=== PATIENT | female | born 1950 | race Caucasian/White ===

== ENCOUNTER 2016-07-18 16:44 | Emergency (ER) | payer MEDICARE, OTHER ==
[~2016-07-18] VITALS: Ht 162.6 cm; Wt 53.0 kg
[~2016-07-18 16:44] MED LIST: ATEN25TA PO; ATOR40TA16 PO; COUM5TAB PO; EPIN1INJ21 IV PUSH; EPIN1INJ21 SQ; LISI40TA PO; PRED5TAB PO; SOLU250I IV PUSH; VANC10IN IV
[2016-07-18 16:55] VITALS: BP 140/70; PULSE 89; RESP 18; TEMP 97.9; O2SAT 94
[2016-07-18 19:04] LABS: BASOPHIL # 0.1 TH/MM3 (0-0.2); BASOPHIL % 0.8 % (0.0-2.0); EOSINOPHIL # 0.5 TH/MM3 (0-0.4); HEMATOCRIT 35.3 % (35.0-46.0); HEMO FLAGS DIFF FINAL; LYMPH % 16.3 % (9.0-44.0); LYMPHOCYTE # 1.5 TH/MM3 (1.0-4.8); MEAN CELL VOLUME 80.5 FL (80.0-100.0); MEAN CORPUSCULAR HEMOGLOBIN 26.3 PG (27.0-34.0); MEAN CORPUSCULAR HGB CONC 32.7 % (32.0-36.0); MONO % 12.5 % (0.0-8.0); NEUT % 65.4 % (16.0-70.0); PLATELET COUNT 331 TH/MM3 (150-450); RED BLOOD COUNT 4.39 MIL/MM3 (4.00-5.30); WHITE BLOOD COUNT 9.2 TH/MM3 (4.0-11.0)
[2016-07-18 19:14] LABS: BICARBONATE 31.9 MEQ/L (21.0-32.0)
[2016-07-18] MEDS ORDERED: VIGA0.5D EACH EYE ×2 (19:15→19:32)
[2016-07-18] MEDS ORDERED: ERYTOIN10 EACH EYE ×2 (19:15→19:32)
[2016-07-18] MEDS ORDERED: AUGM500T7 PO ×2 (19:17→19:32)
--- NOTE | 2016-07-18 19:17 | PD ---
HPI Chief Complaint: Eye Problems/Injury Time Seen by Provider: 17:38 Travel History International Travel<30 days: No Contact w/Intl Traveler<30days: No Traveled to known affect area: No History of Present Illness HPI Patient is a 65 year old female presents to the ER for evalution of left eye itching, swelling. Patient has a history of now chronic conjunctivitis and irritation of the right eye now progressing to the left eye for the past week and gradually worsening. She is followed by an awning hanger helper in the area. Denies fevers, denies visual changes. She is in the group home she states for "chronic disability". PFSH Past Medical History Cancer: No Cardiovascular Problems: Yes COPD: Yes Diabetes: No Diminished Hearing: No Endocrine: No Gastrointestinal Disorders: Yes (REFLUX) GERD: Yes Genitourinary: No Headaches: Yes Hepatitis: No Hiatal Hernia: No Hypertension: Yes Immune Disorder: No Kidney Stones: Yes Musculoskeletal: Yes (TMJ) Neurologic: Yes (VERTIGO) Psychiatric: No Reproductive: No Respiratory: Yes (NODULES ) Immunizations Current: Yes Thyroid Disease: No Menopausal: Yes : 2 Para: 2 Past Surgical History Pacemaker: No Other Surgery: Yes (RT mastectomy) Social History Alcohol Use: No Tobacco Use: No Substance Use: No Allergies-Medications (Allergen,Severity, Reaction): Coded Allergies: *MDRO Multi-Drug Resistant Organism (Unverified Adverse Reaction, Unknown , 05/18/16) Cdiff last treatment few days [employer] [employer] [facility]. + MRSA leg 07/31/14. Reported Meds & Prescriptions Reported Meds & Active Scripts Active Augmentin (Amoxicillin-Clavulanate) 500-125 mg Tab 500 Mg PO BID 7 Days Vigamox Opth Drops (Moxifloxacin Opth Drops) 0.5 % Soln 1 Drop EACH EYE QID Erythromycin Opth Oint 5 Mg/Gm Oint 1 Applic EACH EYE QID Epinephrine Inj 1 Mg/Ml Inj 0.3 Mg SQ ONCE PRN Give with any signs of respiratory distress. Epinephrine Inj 1 Mg/Ml Inj 0.3 Mg IV PUSH ONCE PRN Solu-Cortef Inj (Hydrocortisone Sodium Succinate) 250 Mg Inj 250 Mg IV PUSH ONCE PRN Give over 30-60 seconds. Vancomycin Inj (Vancomycin HCl) 10 Gm Inj 1,250 Mg IV Q12HR 10 Days Prednisone 5 Mg Tab 5 Mg PO DIRECTED 21 Days 60 mg po daily for three days then 50 mg po daily for three days then 40 mg po daily for three days then 30 mg po daily for three days then 20 mg po daily for three days then 10 mg po daily for three days then 5mg po daily for three days then stop. Coumadin (Warfarin) 5 Mg Tab 5 Mg PO DAILY Atenolol 25 Mg Tab 25 Mg PO DAILY 30 Days Reported Lisinopril 40 Mg Tab 40 Mg PO DAILY Atorvastatin (Atorvastatin Calcium) 40 Mg Tab 40 Mg PO HS Review of Systems Except as stated in HPI: all other systems reviewed are Neg Physical Exam Narrative GENERAL: WD/WN in nad. SKIN: Warm and dry. HEAD: Atraumatic. Normocephalic. EYES: Pupils equal and round. There is some moderate chemosis to the left eye, with injection. Patient has no discharge. EOMI. Perhaps a minimal amount of pre-septal cellulitis around the left eye. ENT: No nasal bleeding or discharge. Mucous membranes pink and moist. NECK: Trachea midline. No JVD. CARDIOVASCULAR: Regular rate and rhythm. RESPIRATORY: No accessory muscle use. Clear to auscultation. Breath sounds equal bilaterally. GASTROINTESTINAL: Abdomen soft, non-tender, nondistended. Hepatic and splenic margins not palpable. MUSCULOSKELETAL: Extremities without clubbing, cyanosis, or edema. No obvious deformities. NEUROLOGICAL: Awake and alert. No obvious cranial nerve deficits. Motor grossly within normal limits. Five out of 5 muscle strength in the arms and legs. Normal speech. PSYCHIATRIC: Appropriate mood and affect; insight and judgment normal. Data Data Last Documented VS Orders Complete Blood Count With Diff (07/18/16 18:08) Basic Metabolic Panel (Bmp) (07/18/16 18:08) Ct Facial Bones W/O Iv Cont (07/18/16 ) Acetaminophen (Tylenol) (07/18/16 21:00) Labs MDM Medical Decision Making Medical Screen Exam Complete: Yes Emergency Medical Condition: Yes Differential Diagnosis Conjunctivitis, pre-septal cellulitis, postseptal cellulitis, sepsis highly unlikely, endopthalmitis unlikely. Narrative Course Patient roomed in ED. CT reviewed with Dr. Ricketts and shows no evidence of retrobulbar involvement. Last [address] 07/18/16 0000 Signed Impressions: Service Date/Time: Monday, July 18, 2016 19:53 - CONCLUSION: Left preseptal periorbital soft-tissue swelling. Lobo Ricketts MD Patient appears well. Discussed with her groups awning hanger helper marketing professional. Recommends antibiotic regimen additions as below. She is stable for discharge. Diagnosis Primary Impression: Preseptal cellulitis of left eye Additional Impression: Conjunctivitis Qualified Code: H10.32 - Acute conjunctivitis of left eye, unspecified acute conjunctivitis type Additional Instructions: Patient was discussed with Dr. Mann who is on for Dr. Estrada, discussed patient does have chemosis but otherwise has a reassuring physical exam. Possibly a very small amount of preseptal cellulitis. Patient can be safely discharged on 2 new drops as well as an antibiotic pill. Needs to follow-up with Dr. Estrada next week. Med/Other Pt SpecificInfo: Prescription(s) given Scripts Amoxicillin-Clavulanate (Augmentin)500-125 mg [id number] Mg PO BID 7 Days Ref 0 Prov:Josh Greenberg MD 07/18/16 Moxifloxacin Opth Drops (Vigamox Opth Drops)0.5 % Soln1 Drop EACH EYE QID #1 BOTTLE Ref 0 Prov:Josh Greenberg MD 07/18/16 Erythromycin Opth Oint 5 Mg/Gm Oint1 Applic EACH EYE QID #1 TUBE Ref 0 Prov:Josh Greenberg MD 07/18/16 Disposition: DISCHARGE HOME Condition: Stable Josh Greenberg MD Jul 18, 2016 19:17 Possibly a very small amount of preseptal cellulitis. Patient can be safely discharged on 2 new drops as well as an antibiotic pill. Needs to follow-up with Dr. Estrada next week. Med/Other Pt SpecificInfo: Prescription(s) given Scripts Amoxicillin-Clavulanate (Augmentin)500-125 mg [id number] Mg PO BID 7 Days Ref 0 Prov:Josh Greenberg MD 07/18/16 Moxifloxacin Opth Drops (Vigamox Opth Drops)0.5 % Soln1 Drop EACH EYE QID #1 BOTTLE Ref 0 Prov:Josh Greenberg MD 07/18/16 Erythromycin Opth Oint 5 Mg/Gm Oint1 Applic EACH EYE QID #1 TUBE Ref 0 Prov:Josh Greenberg MD 07/18/16 Disposition: 01 DISCHARGE HOME Condition: Stable Josh Greenberg MD Jul 18, 2016 19:17
[2016-07-18 19:23] LABS: POTASSIUM 4.8 MEQ/L (3.5-5.1)
[2016-07-18] MEDS ORDERED: ACETAMINOPHEN 325 MG TAB PO ONE (21:00)
--- NOTE | 2016-07-18 21:12 | RADRPT ---
EXAM DATE/TIME: 07/18/2016 19:53 [facility] COMPARISON: No previous studies available for comparison. INDICATIONS : Periorbital swelling right eye. RADIATION DOSE: 54.26 CTDIvol (mGy) MEDICAL HISTORY : Hypertension. GERD. SURGICAL HISTORY : None. ENCOUNTER: Initial. ACUITY: 7 days PAIN SCORE: 3/10 LOCATION: Facial, right eye TECHNIQUE: Volumetric scanning of the facial bones was performed. Using automated exposure contr ol and adjustment of the mA and/or kV according to patient size, radiation dose was kept as low as re asonably achievable to obtain optimal diagnostic quality images. FINDINGS: There is periorbital soft-tissue swelling seen on the left side. This is all preseptal. The remaining aspects of the orbits are intact bilaterally. No retrobulbar abnormality is seen. T he bony structures appear grossly intact. There is mucosal disease seen in the maxillary sinuses bila terally being worse on the right. CONCLUSION: Left preseptal periorbital soft-tissue swelling. Lobo Ricketts MD on July 18, 2016 at 21:02 Board Certified Radiologist. This report was verified electronically.
== END 2016-07-18 22:16 | disposition home or self-care (01) ==
LOC: NEDAMB 16:44
DX: L03.213 Periorbital cellulitis (principal); H10.32 Unspecified acute conjunctivitis, left eye
CPT/HCPCS: 70486; 80048; 85025

== ENCOUNTER 2016-08-11 13:54 | Observation (INO) | payer MEDICARE, OTHER ==
[~2016-08-11] VITALS: Ht 162.6 cm; Wt 50.0 kg
[~2016-08-11 13:54] MED LIST changes: +AUGM500T7 PO; +ERYTOIN10 EACH EYE; +VIGA0.5D EACH EYE
[2016-08-11 14:00] VITALS: BP 119/86; PULSE 98; RESP 20; TEMP 98.8; O2SAT 97
[2016-08-11] MEDS ORDERED: SODIUM CHLOR 0.9% 1000 ML INJ 1,000 ML IV ONE (14:15)
[2016-08-11 14:40] VITALS: TEMP 99.9
[2016-08-11] MEDS ORDERED: SODIUM CHLORID 0.9% 500 ML INJ 500 ML IV ONE (14:45)
[2016-08-11] MEDS ORDERED: VANCOMYCIN INJ 1,000 MG in SODIUM CHLOR 0.9% 250 ML INJ 250 ML IV ONE (14:45)
[2016-08-11] MEDS ORDERED: PIPERACIL-TAZO 3.375 GM PREMIX 50 ML IV ONE (14:45)
[2016-08-11 14:58] LABS: AUTOMATED NEUTROPHIL # 2.7 TH/MM3 (1.8-7.7); EOSINOPHIL # 0.1 TH/MM3 (0-0.4); EOSINOPHIL % 2.1 % (0.0-4.0); HEMATOCRIT 38.8 % (35.0-46.0); LYMPH % 16.8 % (9.0-44.0); LYMPHOCYTE # 0.7 TH/MM3 (1.0-4.8); MEAN CELL VOLUME 81.5 FL (80.0-100.0); MEAN CORPUSCULAR HEMOGLOBIN 26.8 PG (27.0-34.0); MEAN CORPUSCULAR HGB CONC 32.9 % (32.0-36.0); MONO % 14.1 % (0.0-8.0); PLATELET COUNT 204 TH/MM3 (150-450); RED BLOOD COUNT 4.77 MIL/MM3 (4.00-5.30); RED CELL DISTRIBUTION WIDTH 17.3 % (11.6-17.2); WHITE BLOOD COUNT 4.1 TH/MM3 (4.0-11.0)
[2016-08-11 15:05] LABS: HEMO FLAGS DIFF FINAL
[2016-08-11 15:13] LABS: APTT (PATIENT) 26.5 SEC (24.3-30.1); INTERNATIONAL NORMALIZED RATIO 1.5 RATIO; PROTHROMBIN TIME - PATIENT 16.6 SEC (9.8-11.6)
--- NOTE | 2016-08-11 15:17 | RADRPT ---
EXAM DATE/TIME: 08/11/2016 14:24 [facility] COMPARISON: CHEST SINGLE AP, May 18, 2016, 19:15. INDICATIONS : Cough. Short of breath. MEDICAL HISTORY : Carcinoma, breast. Chronic obstructive pulmonary disease. MRSA. SURGICAL HISTORY : Mastectomy, right. [place]us[place]. ENCOUNTER: Initial ACUITY: 2 days PAIN SCORE: 0/10 LOCATION: Bilateral chest FINDINGS: A single view of the chest demonstrates the lungs to be symmetrically aerated without evidence of mas s, infiltrate or effusion. The cardiomediastinal contours are unremarkable. Osseous structures are intact. Left [id number] is in place. CONCLUSION: No acute disease. Tulio Schultz MD on August 11, 2016 at 15:09 Board Certified Radiologist. This report was verified electronically.
[2016-08-11 16:33] LABS: ANION GAP 8 MEQ/L (5-15); BICARBONATE 24.7 MEQ/L (21.0-32.0); CHLORIDE 108 MEQ/L (98-107); GLOMERULAR FILTRATION RATE 121 ML/MIN (>89); MAGNESIUM 1.8 MG/DL (1.5-2.5); POTASSIUM 3.9 MEQ/L (3.5-5.1); SODIUM (NA) 141 MEQ/L (136-145)
[2016-08-11 16:46] LABS: BLOOD UREA NITROGEN 10 MG/DL (7-18); CREATINE KINASE 30 U/L (26-192)
--- NOTE | 2016-08-11 17:08 | PD ---
HPI Chief Complaint: Respiratory Symptoms Time Seen by Provider: 14:02 Travel History International Travel<30 days: No Contact w/Intl Traveler<30days: No Traveled to known affect area: No History of Present Illness HPI This 65-year-old female with a history of breast cancer presents from detention for evaluation of cough fever and shortness of breath for the past few days. Patient states currently on chemotherapy. According EMS fever to 101F in the field. Patient is a nonproductive cough, symptoms are gradually worsening. Denies chest pain abdominal pain nausea vomiting diarrhea. Does endorse shortness of breath. PFSH Past Medical History Cancer: Yes (R BREAST CA ) Cardiovascular Problems: Yes (HTN) Chemotherapy: Yes COPD: Yes Diabetes: No Diminished Hearing: No Endocrine: No Gastrointestinal Disorders: Yes (REFLUX) GERD: Yes Genitourinary: No Headaches: Yes Hepatitis: No Hiatal Hernia: No Hypertension: Yes Immune Disorder: No Kidney Stones: Yes Musculoskeletal: Yes (TMJ) Neurologic: Yes (VERTIGO) Psychiatric: No Reproductive: No Respiratory: Yes (NODULES ) Immunizations Current: Yes Thyroid Disease: No Tetanus Vaccination: < 5 Years Influenza Vaccination: No ?: Not Menopausal: Yes : 2 Para: 2 Past Surgical History Pacemaker: No Other Surgery: Yes (RT mastectomy) Social History Alcohol Use: No Tobacco Use: No Substance Use: No Allergies-Medications (Allergen,Severity, Reaction): Coded Allergies: *MDRO Multi-Drug Resistant Organism (Unverified Adverse Reaction, Unknown , 05/18/16) Cdiff last treatment few days [employer]. + MRSA leg 07/31/14. Reported Meds & Prescriptions Reported Meds & Active Scripts Active Augmentin (Amoxicillin-Clavulanate) 500-125 mg Tab 500 Mg PO BID 7 Days Vigamox Opth Drops (Moxifloxacin Opth Drops) 0.5 % Soln 1 Drop EACH EYE QID Erythromycin Opth Oint 5 Mg/Gm Oint 1 Applic EACH EYE QID Epinephrine Inj 1 Mg/Ml Inj 0.3 Mg SQ ONCE PRN Give with any signs of respiratory distress. Epinephrine Inj 1 Mg/Ml Inj 0.3 Mg IV PUSH ONCE PRN Solu-Cortef Inj (Hydrocortisone Sodium Succinate) 250 Mg Inj 250 Mg IV PUSH ONCE PRN Give over 30-60 seconds. Vancomycin Inj (Vancomycin HCl) 10 Gm Inj 1,250 Mg IV Q12HR 10 Days Prednisone 5 Mg Tab 5 Mg PO DIRECTED 21 Days 60 mg po daily for three days then 50 mg po daily for three days then 40 mg po daily for three days then 30 mg po daily for three days then 20 mg po daily for three days then 10 mg po daily for three days then 5mg po daily for three days then stop. Coumadin (Warfarin) 5 Mg Tab 5 Mg PO DAILY Atenolol 25 Mg Tab 25 Mg PO DAILY 30 Days Reported Lisinopril 40 Mg Tab 40 Mg PO DAILY Atorvastatin (Atorvastatin Calcium) 40 Mg Tab 40 Mg PO HS Review of Systems Except as stated in HPI: all other systems reviewed are Neg Physical Exam Narrative GENERAL: [Well-developed well-nourished no apparent distress SKIN: Warm and dry. HEAD: Atraumatic. Normocephalic. EYES: Pupils equal and round. No scleral icterus. No injection or drainage. ENT: No nasal bleeding or discharge. Mucous membranes pink and moist. TMs clear bilaterally. NECK: Trachea midline. No JVD. CARDIOVASCULAR: Tachycardic with regular rhythm.. No murmur appreciated. 2+ but her local pulses in all 4 extremities. RESPIRATORY: No accessory muscle use. Clear to auscultation. Breath sounds equal bilaterally. Tachypneic. GASTROINTESTINAL: Abdomen soft, non-tender, nondistended. Hepatic and splenic margins not palpable. MUSCULOSKELETAL: No obvious deformities. No clubbing. No cyanosis. No edema. NEUROLOGICAL: Awake and alert. No obvious cranial nerve deficits. Motor grossly within normal limits. Normal speech. PSYCHIATRIC: Appropriate mood and affect; insight and judgment normal. Data Data Last Documented VS Vital Signs Date Time Temp Pulse Resp B/P Pulse Ox O2 Delivery O2 Flow Rate FiO2 08/11/16 18:55 20 08/11/16 18:54 90 110/73 98 Nasal Cannula 2 08/11/16 14:40 99.9 Orders Electrocardiogram (08/11/16 14:02) Basic Metabolic Panel (Bmp) (08/11/16 14:02) Ckmb (Isoenzyme) Profile (08/11/16 14:02) Complete Blood Count With Diff (08/11/16 14:02) Magnesium (Mg) (08/11/16 14:02) Prothrombin Time / Inr (Pt) (08/11/16 14:02) Act Partial Throm Time (Ptt) (08/11/16 14:02) Troponin I (08/11/16 14:02) Chest, Single Ap (08/11/16 14:02) Ecg Monitoring (08/11/16 14:02) Bilateral Bp Monitoring (08/11/16 14:02) Iv Access Insert/Monitor (08/11/16 14:02) Oximetry (08/11/16 14:02) Oxygen Administration (08/11/16 14:02) Sodium Chloride 0.9% Flush (Ns Flush) (08/11/16 14:15) Sodium Chlor 0.9% 1000 Ml Inj (Ns 1000 M (08/11/16 14:15) Lactic Acid (08/11/16 14:02) Influenzae A/B Antigen (08/11/16 14:39) Sodium Chlorid 0.9% 500 Ml Inj (Ns 500 M (08/11/16 14:45) Vancomycin Inj (Vancomycin Inj) (08/11/16 14:45) Piperacil-Tazo 3.375 Gm Premix (Zosyn 3. (08/11/16 14:45) Blood Culture (08/11/16 14:40) Ct Pulmonary Angiogram (08/11/16 ) Acetaminophen (Tylenol) (08/11/16 17:15) Iohexol 350 Inj (Omnipaque 350 Inj) (08/11/16 18:15) Admit Order (Ed Use Only) (08/11/16 ) Labs Laboratory Tests Test 08/11/16 08/11/16 14:15 15:40 White Blood Count 4.1 TH/MM3 Red Blood Count 4.77 MIL/MM3 Hemoglobin 12.8 GM/DL Hematocrit 38.8 % Mean Corpuscular Volume 81.5 FL Mean Corpuscular Hemoglobin 26.8 PG Mean Corpuscular Hemoglobin 32.9 % Concent Red Cell Distribution Width 17.3 % Platelet Count 204 TH/MM3 Mean Platelet Volume 8.7 FL Neutrophils (%) (Auto) 66.0 % Lymphocytes (%) (Auto) 16.8 % Monocytes (%) (Auto) 14.1 % Eosinophils (%) (Auto) 2.1 % Basophils (%) (Auto) 1.0 % Neutrophils # (Auto) 2.7 TH/MM3 Lymphocytes # (Auto) 0.7 TH/MM3 Monocytes # (Auto) 0.6 TH/MM3 Eosinophils # (Auto) 0.1 TH/MM3 Basophils # (Auto) 0.0 TH/MM3 CBC Comment DIFF FINAL Differential Comment Prothrombin Time 16.6 SEC Prothromb Time International 1.5 RATIO Ratio Activated Partial 26.5 SEC Thromboplast Time Lactic Acid Level 1.0 mmol/L Sodium Level 141 MEQ/L Potassium Level 3.9 MEQ/L Chloride Level 108 MEQ/L Carbon Dioxide Level 24.7 MEQ/L Anion Gap 8 MEQ/L Blood Urea Nitrogen 10 MG/DL Creatinine 0.51 MG/DL Estimat Glomerular Filtration 121 ML/MIN Rate Random Glucose 88 MG/DL Calcium Level 8.5 MG/DL Magnesium Level 1.8 MG/DL Total Creatine Kinase 30 U/L Troponin I LESS THAN 0.02 NG/ML MDM Medical Decision Making Medical Screen Exam Complete: Yes Emergency Medical Condition: Yes Interpretation(s) EKG shows sinus tachycardia rate of 114. Intervals otherwise within normal limits. Normal axis normal R-wave progression. No concerning ST T changes. In the inferior leads there is low voltage QRS compared to the P waves. This is nonspecific finding. As a nonspecific EKG. Differential Diagnosis Pneumonia, sepsis, cancer, PE. Narrative Course Patient 65-year-old female presents emergency department for evaluation of URI symptoms fever and a cancer patient. PE needs exclusion. Chest x-ray is within normal limits. On vital signs patient does meet SIRS criteria. Lactic acid is 1.0. Patient was taken to CAT scan her does have some findings consistent with pneumonia: Patient was given brought specimen anabiotic cyst this does represent a healthcare associated pneumonia. Patient was given fluid bolus. To minimum because lactic acid is within normal limits. She does meet SIRS criteria and has pneumonia and therefore sepsis. She has not severe sepsis. Patient was discussed with Dr. Arechiga for admission and was agreeable. Diagnosis Primary Impression: Sepsis Qualified Code: A41.9 - Sepsis, due to unspecified organism Additional Impression: Pneumonia Qualified Code: J18.9 - Pneumonia due to infectious organism, unspecified laterality, unspecified part of lung Admitting Information Admitting Physician Requests: Admit Condition: Stable Josh Greenberg MD Aug 11, 2016 17:08
[2016-08-11] MEDS ORDERED: ACETAMINOPHEN 325 MG TAB PO ONE (17:15)
[2016-08-11] MEDS ORDERED: IOHEXOL 350 MG/ML 10 ML VIAL (for RAD DIAG) IV ONE (18:15)
--- NOTE | 2016-08-11 18:28 | RADRPT ---
EXAM DATE/TIME: 08/11/2016 17:55 [facility] COMPARISON: CHEST SINGLE AP, May 18, 2016, 19:15. INDICATIONS : Flu like symptoms for four days. IV CONTRAST: 50 cc Omnipaque 350 (iohexol) IV RADIATION DOSE: 4.46 CTDIvol (mGy) MEDICAL HISTORY : Cardiovascular disease. Hypertension. Carcinoma, breast. SURGICAL HISTORY : Mastectomy, right. ENCOUNTER: Initial ACUITY: 4 - 6 days PAIN SCALE: 8/10 LOCATION: chest TECHNIQUE: Volumetric scanning of the chest was performed using a pulmonary embolism protocol MIP images were re constructed. Using automated exposure control and adjustment of the mA and/or kV according to patien t size, radiation dose was kept as low as reasonably achievable to obtain optimal diagnostic quality images. FINDINGS: PULMONARY ARTERIES: No filling defects are seen in the pulmonary arteries through the segmental level. LUNGS: There are scattered reticular nodular infiltrate throughout both lung tan. PLEURAE: There is no pleural thickening or pleural effusion. MEDIASTINUM: There is good visualization of the great vessels of the middle mediastinum. No evidence of mediastin al or hilar adenopathy/mass. MUSCULOSKELETAL: Within normal limits for patient age. MISCELLANEOUS: The visualized upper abdominal organs demonstrate no acute abnormality. CONCLUSION: 1. No PE. 2. Scattered reticulonodular infiltrates throughout both lung tan. This suggest inflammatory proce ss such as pneumonia. Lung metastatic disease would be a second possibility since patient has a histo ry of breast cancer. Ross Louis MD on August 11, 2016 at 18:19 Board Certified Radiologist. This report was verified electronically.
[2016-08-11 18:54] VITALS: BP 110/73; PULSE 90; RESP 20; O2SAT 98
[2016-08-11] MEDS ORDERED: Vancomycin Consult Pharmacy 1 EA OTHER SCH (19:45)
[2016-08-11] MEDS ORDERED: ACETAMINOPHEN 325 MG TAB PO PRN (19:45)
[2016-08-11] MEDS ORDERED: ONDANSETRON HCL 4 MG/2 ML VIAL IV PRN (19:45)
[2016-08-11] MEDS: PIPERACIL-TAZO 4.5 GM PREMIX 100 ML IV SCH (21:47)
[2016-08-11] MEDS: NS + KCL 20 MEQ INJ 1,000 ML IV SCH (21:47)
[2016-08-11 22:05] VITALS: BP 99/54
[2016-08-11] MEDS: HEPARIN SODIUM - SQ 10,000 UNITS/ML VIAL SQ SCH (22:49)
--- NOTE | 2016-08-11 23:11 | HHI.HP ---
[facility] Primary Care Physician No Primary Care Physician Admission Diagnosis Sepsis, PNA Diagnoses: Chief Complaint: cough, headaches Travel History International Travel<30 Days: No Contact w/Intl Traveler <30 Da: No Traveled to Known Affected Are: No History of Present Illness 65 y/o female with a history of HTN and hyperlipidemia presented to the ED from a local longterm with complaints of a cough and sob for the past month. She states she has had a cough and sob for the last month. Denies any sputum production. According to EMS she had a temp of 101. She also complains of headaches and has seen an eye doctor several times, but has not found out the cause. She states she was on chemotherapy for breast cancer but last dose was 4 months ago. She denies any chest pain, or chills, but states at times she does have nausea. Review of Systems Constitutional: COMPLAINS OF: Fever, DENIES: Chills Respiratory: COMPLAINS OF: Cough, Shortness of breath, DENIES: Sputum production Cardiovascular: DENIES: Chest pain, Lower Extremity Edema Gastrointestinal: COMPLAINS OF: Nausea, DENIES: Constipation, Diarrhea, Vomiting Genitourinary: DENIES: Hematuria, Dysuria Musculoskeletal: DENIES: Back pain, Neck pain Integumentary: DENIES: Rash Neurologic: COMPLAINS OF: Headache, DENIES: Localized weakness Past Family Social History Past Medical History HTN Hyperlipidemia Breast CA with chemo, last dose in Nov Past Surgical History Right mastectomy Reported Medications Reported Meds & Active Scripts Active Augmentin (Amoxicillin-Clavulanate) 500-125 mg Tab 500 Mg PO BID 7 Days Vigamox Opth Drops (Moxifloxacin Opth Drops) 0.5 % Soln 1 Drop EACH EYE QID Erythromycin Opth Oint 5 Mg/Gm Oint 1 Applic EACH EYE QID Epinephrine Inj 1 Mg/Ml Inj 0.3 Mg SQ ONCE PRN Give with any signs of respiratory distress. Epinephrine Inj 1 Mg/Ml Inj 0.3 Mg IV PUSH ONCE PRN Solu-Cortef Inj (Hydrocortisone Sodium Succinate) 250 Mg Inj 250 Mg IV PUSH ONCE PRN Give over 30-60 seconds. Vancomycin Inj (Vancomycin HCl) 10 Gm Inj 1,250 Mg IV Q12HR 10 Days Prednisone 5 Mg Tab 5 Mg PO DIRECTED 21 Days 60 mg po daily for three days then 50 mg po daily for three days then 40 mg po daily for three days then 30 mg po daily for three days then 20 mg po daily for three days then 10 mg po daily for three days then 5mg po daily for three days then stop. 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 + MRSA leg 07/31/14. Active Ordered Medications Current Medications Medications (Trade) Dose Ordered Sig/Rosalba Route Start Time Stop Time Status Last Admin IV Flush 2 ml 2 ml UNSCH PRN IVF 08/11/16 14:15 Potassium Chloride/Sodium Chloride 1,000 ml @ 70 mls/hr [id number] IV 08/11/16 19:44 08/11/16 21:47 Piperacillin Sod/ Tazobactam Sod 100 ml @ 200 mls/hr Q6H IV 08/11/16 21:00 08/11/16 21:47 (Vancomycin Consult Pharmacy) 0 ml @ 0 mls/hr UNSCH OTHER 08/11/16 19:45 (Tylenol) 650 mg Q4H PRN PO 08/11/16 19:45 08/11/16 22:50 (Zofran Inj) 4 mg Q6H PRN IV 08/11/16 19:45 (Robitussin Dm 200-20 Mg/10 ml Liq) 10 ml Q4H PRN PO 08/11/16 19:45 Heparin Sodium (Porcine) 5000 units 5,000 units Q8H SQ 08/11/16 22:00 08/11/16 22:49 (Vancomycin Inj/ NS 250 ml Inj) 250 ml @ 250 mls/hr Q18H IV 08/12/16 12:00 Miscellaneous Information SPECIFIC LAB TO BE DANE... ONCE ONCE XX 08/13/16 23:45 08/13/16 23:46 Family History Significant for Heart disease Social History No tobacco, alcohol or illicit drug use Physical Exam Vital Signs Vital Signs Date Time Temp Pulse Resp B/P Pulse Ox O2 Delivery O2 Flow Rate FiO2 08/11/16 22:05 98 16 99/54 97 08/11/16 18:55 20 08/11/16 18:54 90 20 110/73 98 Nasal Cannula 2 08/11/16 14:40 99.9 08/11/16 14:05 100 Nasal Cannula 2 08/11/16 14:00 119/86 08/11/16 14:00 98.8 98 20 119/86 97 Room Air 08/11/16 14:00 98.8 98 20 119/86 97 Physical Exam GENERAL: This is a well-nourished, well-developed patient, in no apparent distress. SKIN: No rashes, ecchymoses or lesions. Cool and dry. HEAD: Atraumatic. Normocephalic. EYES: Pupils equal round and reactive. Extraocular motions intact. ENT: Nose without bleeding, purulent drainage or septal hematoma. Airway patent. NECK: Trachea midline. No JVD CARDIOVASCULAR: Regular rate and rhythm without murmurs, gallops, or rubs. RESPIRATORY: Diminished Breath sounds bilaterally. No wheezes, rales, or rhonchi. GASTROINTESTINAL: Abdomen soft, non-tender, nondistended. No hepato-splenomegaly , or palpable masses. No guarding. MUSCULOSKELETAL: Extremities without clubbing, cyanosis, or edema. No joint tenderness, effusion, or edema noted. No calf tenderness. NEUROLOGICAL: Awake and alert. . Motor and sensory grossly within normal limits. Normal speech. Laboratory Laboratory Tests Test 08/11/16 08/11/16 14:15 15:40 White Blood Count 4.1 Red Blood Count 4.77 Hemoglobin 12.8 Hematocrit 38.8 Mean Corpuscular Volume 81.5 Mean Corpuscular Hemoglobin 26.8 Mean Corpuscular Hemoglobin 32.9 Concent Red Cell Distribution Width 17.3 Platelet Count 204 Mean Platelet Volume 8.7 Neutrophils (%) (Auto) 66.0 Lymphocytes (%) (Auto) 16.8 Monocytes (%) (Auto) 14.1 Eosinophils (%) (Auto) 2.1 Basophils (%) (Auto) 1.0 Neutrophils # (Auto) 2.7 Lymphocytes # (Auto) 0.7 Monocytes # (Auto) 0.6 Eosinophils # (Auto) 0.1 Basophils # (Auto) 0.0 CBC Comment DIFF FINAL Differential Comment Prothrombin Time 16.6 Prothromb Time International 1.5 Ratio Activated Partial 26.5 Thromboplast Time Lactic Acid Level 1.0 Sodium Level 141 Potassium Level 3.9 Chloride Level 108 Carbon Dioxide Level 24.7 Anion Gap 8 Blood Urea Nitrogen 10 Creatinine 0.51 Estimat Glomerular Filtration 121 Rate Random Glucose 88 Calcium Level 8.5 Magnesium Level 1.8 Total Creatine Kinase 30 Troponin I LESS THAN 0.02 Date/Time Procedure Status Source Growth 08/11/16 15:00 Influenza Types A,B Antigen (JANNETTE) - Final Complete Nasal Aspirate NEGATIVE FOR FLU A AND B ANTIGEN.... 08/11/16 14:00 Aerobic Blood Culture Received Blood Peripheral Pending 08/11/16 14:00 Anaerobic Blood Culture Received Blood Peripheral Pending Result Diagram: 08/11/16 1415 08/11/16 1540 Assessment and Plan Problem List: (1) Pneumonia ICD Code: J18.9 Status: Acute (2) HTN (hypertension) ICD Code: I10 Status: Chronic (3) Orbital cellulitis on left ICD Code: H05.012 Status: Chronic Assessment and Plan 65-year-old female with a history of hypertension and dyslipidemia presented with: Pneumonia -Chest CT shows scattered reticulonodular infiltrates throughout both lung tan, suggestive of inflammatory process. -Vancomycin IV with pharmacy consult for dosing -Guaifen-DM when necessary -Oxygen as needed, incentive spirometer Orbital cellulitis, chronic, was being treated outpatient -Son will bring in med list in AM Hypertension, chronic, currently stable -Monitor vitals -Awaiting med rec, prns if necessary DVT prophylaxis: Heparin Written by Jocelyn GARNER, acting as scribe for Dr. Greenwood on 08/11/16 at 2307. All or portions of this note were transcribed by PASCUAL Garcia. I, Dr. Melvin Greenwood personally performed the history, physical exam, and medical decision making; and confirmed the accuracy of the information in the transcribed note. Authenticated by Dr. Melvin Greenwood on 08/12/16 at 01:54. Code Status Full Discussed Condition With Patient Problem Qualifiers (1) Pneumonia: Qualified Code: J18.9 - Pneumonia due to infectious organism, unspecified laterality, unspecified part of lung Jocelyn Cunningham Aug 11, 2016 23:11 Melvin Greenwood MD Aug 12, 2016 01:54
[2016-08-11 23:35] VITALS: BP 117/75; PULSE 86; RESP 18; TEMP 98.2; O2SAT 97
[2016-08-12] VITALS (7 sets, daily range): BP systolic 109–152; BP diastolic 69–86; PULSE 74–96; RESP 18–19; TEMP 95.7–98.1; O2SAT 89–97
[2016-08-12] MEDS ORDERED: DRON2.5C PO (00:19)
[2016-08-12] MEDS ORDERED: BUTA1CAP7 PO (00:21)
[2016-08-12] MEDS ORDERED: LISI-519 PO (00:27)
[2016-08-12] MEDS ORDERED: [UNRECOGNIZED DRUG - CODE] LEFT EYE (00:30)
[2016-08-12] MEDS ORDERED: VANC125C3 LEFT EYE (00:33)
[2016-08-12] MEDS ORDERED: CODEINE PO PRN (01:45)
[2016-08-12] MEDS ORDERED: BUTALBITAL PO PRN (01:45)
[2016-08-12] MEDS ORDERED: ACETAMINOPHEN PO PRN (01:45)
[2016-08-12] MEDS ORDERED: CAFFEINE PO PRN (01:45)
[2016-08-12] MEDS: CODEINE SULFATE 30 MG TAB PO PRN ×4 (02:36→23:30)
[2016-08-12] MEDS: PIPERACIL-TAZO 4.5 GM PREMIX 100 ML IV SCH ×4 (02:36→20:28)
[2016-08-12] MEDS: ACETAMIN 325 MG/BUTALBITAL 50 MG/CAFFEINE 40 MG TAB PO PRN ×5 (02:37→23:30)
[2016-08-12] MEDS: HEPARIN SODIUM - SQ 10,000 UNITS/ML VIAL SQ SCH ×3 (06:18→20:29)
[2016-08-12 07:36] LABS: AUTOMATED NEUTROPHIL # 1.4 TH/MM3 (1.8-7.7); BASOPHIL % 1.3 % (0.0-2.0); EOSINOPHIL # 0.1 TH/MM3 (0-0.4); EOSINOPHIL % 3.2 % (0.0-4.0); HEMATOCRIT 33.8 % (35.0-46.0); HEMO FLAGS DIFF FINAL; LYMPH % 33.4 % (9.0-44.0); LYMPHOCYTE # 1.1 TH/MM3 (1.0-4.8); MEAN CORPUSCULAR HEMOGLOBIN 26.5 PG (27.0-34.0); MEAN CORPUSCULAR HGB CONC 32.7 % (32.0-36.0); MONO % 17.3 % (0.0-8.0); NEUT % 44.8 % (16.0-70.0); PLATELET COUNT 156 TH/MM3 (150-450); RED BLOOD COUNT 4.17 MIL/MM3 (4.00-5.30); RED CELL DISTRIBUTION WIDTH 17.4 % (11.6-17.2); WHITE BLOOD COUNT 3.2 TH/MM3 (4.0-11.0)
[2016-08-12] MEDS ORDERED: NALOXONE HCL 0.4 MG/ML AMP IV PUSH PRN (07:45)
[2016-08-12] MEDS ORDERED: MAGNESIUM HYDROXIDE SUSP 30 ML CUP PO PRN (07:45)
[2016-08-12] MEDS ORDERED: DOCUSATE SODIUM 50 MG/SENNA 8.6 MG TAB PO PRN (07:45)
[2016-08-12] MEDS ORDERED: ALUMINUM/MAGNESIUM/SIMETH 30 ML CUP PO PRN (07:45)
[2016-08-12] MEDS ORDERED: CALCIUM CARBONATE 500 MG CHEWABLE TAB CHEW PRN (07:45)
[2016-08-12 08:10] LABS: BICARBONATE 26.4 MEQ/L (21.0-32.0); POTASSIUM 3.7 MEQ/L (3.5-5.1)
[2016-08-12] MEDS: ERYTHROMYCIN 0.5% OPTH OINT 3.5 GM TUBO EACH EYE SCH ×4 (09:00→23:31)
[2016-08-12] MEDS ORDERED: LISINOPRIL 5 MG TAB PO SCH (09:00)
--- NOTE | 2016-08-12 10:00 | HHI.PR ---
Subjective Remarks Follow-up for pneumonia. Patient recently discharged from SNF, currently lives with her son. She knows she's in the hospital, not sure of the date. She denies any sick contacts. She has cough, no blood in it. She has shortness of breath, worse with exertion. She is currently on oral antibiotics for her eye infection at home, unsure of the antibiotic. She had breast cancer, finished treatment for months ago, had surgery, was told that it did not spread. Not sure why she is on a blood thinner, but she does recall that maybe in the past she had blood clots in her lungs. Objective Vitals Vital Signs Date Time Temp Pulse Resp B/P Pulse Ox O2 Delivery O2 Flow Rate FiO2 08/12/16 09:07 92 21 08/12/16 08:20 91 08/12/16 08:12 96.3 77 19 152/86 89 08/12/16 04:25 97.9 74 18 116/69 97 08/12/16 04:10 18 08/12/16 04:10 18 08/12/16 01:23 21 08/12/16 00:34 18 08/11/16 23:35 98.2 86 18 117/75 97 08/11/16 22:05 98 16 99/54 97 08/11/16 18:55 20 08/11/16 18:54 90 20 110/73 98 Nasal Cannula 2 08/11/16 14:40 99.9 08/11/16 14:05 100 Nasal Cannula 2 08/11/16 14:00 119/86 08/11/16 14:00 98.8 98 20 119/86 97 Room Air 08/11/16 14:00 98.8 98 20 119/86 97 Result Diagram: 08/12/16 0630 08/12/16 0630 Objective Remarks GENERAL: Well-developed well-nourished. In no acute distress. SKIN: Warm and dry. No lesions noted. HEENT: Normocephalic. Left eye conjunctival irritation. Pupils equal and round. Mucous membranes pink and moist. CARDIOVASCULAR: Regular rate and rhythm. No murmur appreciated. RESPIRATORY: No accessory muscle use. Clear to auscultation. Breath sounds equal bilaterally. GASTROINTESTINAL: Abdomen soft, non-tender, nondistended. Bowel sounds x4. MUSCULOSKELETAL: No obvious deformities. No clubbing or cyanosis. No edema. NEUROLOGICAL: Awake and alert. No focal neurological deficits. Moves upper and lower extremities spontaneously. Normal speech. PSYCHIATRIC: Appropriate mood and affect; insight and judgment fair to normal. A/P Problem List: (1) Pneumonia ICD Code: J18.9 Status: Acute (2) HTN (hypertension) ICD Code: I10 Status: Chronic (3) Orbital cellulitis on left ICD Code: H05.012 Status: Chronic Assessment and Plan 65-year-old female with a history of hypertension and dyslipidemia presented with: Pneumonia Imaging reviewed: Chest CT shows scattered reticulonodular infiltrates throughout both lung tan, suggestive of inflammatory/infectious process although metastatic disease is in the differential. -Giving IV Vancomycin and Zosyn with pharmacy consult for dosing -Guaifen-DM when necessary -Oxygen as needed, incentive spirometer -Check urinary antigens -Consult pulmonology Orbital cellulitis, chronic, was being treated outpatient -Son will bring in med list in AM, resume antibiotics when reconciled -Consult ophthalmology Hypertension, chronic, currently stable -Monitor vitals -Awaiting med rec, resume when reconciled, prns if necessary History of PE -INR subtherapeutic at 1.5, monitor INR -Continue Coumadin with pharmacy consult DVT prophylaxis: Heparin Written by Jb Aleman, acting as scribe for Dr. Torres on 08/12/16 at 09:56. All or portions of this note were transcribed by scribe []. I, Dr. Shantanu Torres personally performed the history, physical exam, and medical decision making; and confirmed the accuracy of the information in the transcribed note. Authenticated by Dr. Shantanu Torres on 08/12/16 at 16:24. Problem Qualifiers (1) Pneumonia: Qualified Code: J18.9 - Pneumonia due to infectious organism, unspecified laterality, unspecified part of lung (2) HTN (hypertension): Qualified Code: I10 - Essential hypertension Jb Aleman Aug 12, 2016 10:00 Shantanu Torres MD Aug 12, 2016 16:24
[2016-08-12] MEDS: MOXIFLOXACIN 0.5% OPHT SOLN 3 ML BTL EACH EYE SCH ×4 (10:16→20:28)
[2016-08-12] MEDS: NS + KCL 20 MEQ INJ 1,000 ML IV SCH ×2 (10:16→23:31)
[2016-08-12] MEDS ORDERED: VANCOMYCIN 1,000 MG/NS 250 ML IV SCH ×2 (12:00)
[2016-08-12] MEDS: VANCOMYCIN 1,000 MG/NS 250 ML IV SCH ×4 (12:13→23:32)
--- NOTE | 2016-08-12 14:55 | EKG ---
Date Performed: 08/11/2016 Time Performed: 14:29:20 PTAGE: 65 years EKG: SINUS TACHYCARDIA LOW QRS VOLTAGE IN EXTREMITY LEADS ABNORMAL RHYTHM ECG Since PREVIOUS TRACING , no significant change noted PREVIOUS TRACIN05/18/2016 18.50 DOCTOR: Yasmany Mayorga Interpretating Date/Time 08/12/2016 14:52:34
[2016-08-12] MEDS: WARFARIN SOD 5 MG TAB PO SCH (16:29)
--- NOTE | 2016-08-12 19:57 | PD.CONS ---
History of Present Illness Service Ophthalmology Consult Requested By Reason for Consult left eye redness Primary Care Physician No Primary Care Physician Diagnoses: History of Present Illness 65 yo F with a history of HTN and hyperlipidemia presented to the ED from a local custodial with complaints of a cough and sob for the past month. She states she was on chemotherapy for breast cancer, but last dose was 4 months ago. She says she has seen a local Retina specialist (can't remember name) a few times in the last month for a problem in her left eye (does not know what problem was). Poor historian. Retina said her eye pressure was really high, did a ?paracentesis, and put her on drops (does not know which ones). 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 + MRSA leg 07/31/14. Physical Exam Vital Signs Vital Signs Date Time Temp Pulse Resp B/P Pulse Ox O2 Delivery O2 Flow Rate FiO2 08/12/16 16:12 95.7 75 18 114/79 92 08/12/16 15:51 18 08/12/16 15:51 18 08/12/16 11:50 96.7 96 18 109/73 91 08/12/16 09:07 92 21 08/12/16 08:20 91 08/12/16 08:12 96.3 77 19 152/86 89 08/12/16 04:25 97.9 74 18 116/69 97 08/12/16 01:23 21 08/12/16 00:34 18 08/11/16 23:35 98.2 86 18 117/75 97 08/11/16 22:05 98 16 99/54 97 Physical Exam Va cc at near OD 20/200, OS 20/800 EOM full OU, no diplopia CVF full OU Pupils 4-3 no APD OU IOP 17, 25 mm Hg Anterior exam OD - normal eyelid, C/S W&Q, K clear, AC deep, pupil round, lens clear OS - normal eyelid, conj injection, K clear, AC deep, pupil round, lens clear Dilated exam OD - ON s/p/f, ves normal, vit clear, retina flat OS - hazy view Laboratory Laboratory Tests Test 08/12/16 06:30 White Blood Count 3.2 Red Blood Count 4.17 Hemoglobin 11.0 Hematocrit 33.8 Mean Corpuscular Volume 81.0 Mean Corpuscular Hemoglobin 26.5 Mean Corpuscular Hemoglobin 32.7 Concent Red Cell Distribution Width 17.4 Platelet Count 156 Mean Platelet Volume 8.4 Neutrophils (%) (Auto) 44.8 Lymphocytes (%) (Auto) 33.4 Monocytes (%) (Auto) 17.3 Eosinophils (%) (Auto) 3.2 Basophils (%) (Auto) 1.3 Neutrophils # (Auto) 1.4 Lymphocytes # (Auto) 1.1 Monocytes # (Auto) 0.5 Eosinophils # (Auto) 0.1 Basophils # (Auto) 0.0 CBC Comment DIFF FINAL Differential Comment Sodium Level 144 Potassium Level 3.7 Chloride Level 109 Carbon Dioxide Level 26.4 Anion Gap 9 Blood Urea Nitrogen 10 Creatinine 0.54 Estimat Glomerular Filtration 113 Rate Random Glucose 71 Calcium Level 8.3 Date/Time Procedure Status Source Growth 08/11/16 15:00 Influenza Types A,B Antigen (JANNETTE) - Final Complete Nasal Aspirate NEGATIVE FOR FLU A AND B ANTIGEN.... 08/11/16 14:00 Aerobic Blood Culture - Preliminary Resulted Blood Peripheral NO GROWTH IN 1 DAY 08/11/16 14:00 Anaerobic Blood Culture - Preliminary Resulted Blood Peripheral NO GROWTH IN 1 DAY Result Diagram: 08/12/16 0630 08/12/16 0630 Assessment and Plan Problem List: (1) Conjunctival injection Status: Acute Plan: Poor historian, poor cooperation with exam. Will attempt to find out which Retina specialist in [facility] has been treating her to get medical records. Leticia King MD Aug 12, 2016 19:57
[2016-08-12] MEDS: ATORVASTATIN 40 MG TAB PO SCH (20:27)
[2016-08-12] MEDS: SODIUM CHLORIDE 0.9% FLUSH 5 ML FLUSH IVF PRN ×2 (20:28→23:31)
--- NOTE | 2016-08-12 20:52 | MB ---
cc: EMMANUELLE AGRAWAL DATE OF CONSULTATION 08/12/[address] Torres. REASON FOR CONSULTATION Evaluate for abnormal CT scan of the chest. HISTORY OF THE PRESENT ILLNESS Ms. Foster is a 65-year-old female with a history of cancer of the breast status post right mastectomy, chemotherapy and radiation therapy. She lives in a senior care for the last few months. She states that in January she had a fall and her problems started after that. She came to the hospital with cough, sputum production and fever. She also had a headache. No nausea or vomiting. The patient was evaluated in the hospital. She had a CT scan of the chest done. It does not show any pulmonary embolism. It shows scattered reticulonodular infiltrates throughout both lungs. It could be inflammatory or infective process or malignancy. She feels comfortable. Not able to cough any phlegm. No nausea or vomiting. PAST MEDICAL HISTORY Significant for: 1. History of cancer of the breast status post mastectomy and radiation and chemotherapy. 2. Hypertension. 3. History of fall. MEDICATIONS She is currently takin. Lipitor 40 milligrams a day. 2. Coumadin 5 milligrams a day. 3. Vancomycin IV. 4. Moxifloxacin eye drops. 5. Codeine 30 milligrams q.4h. 6. Zosyn IV. 7. Robitussin DM cough syrup. ALLERGIES NO KNOWN DRUG ALLERGIES. SOCIAL HISTORY She is . She used to work in a factory. No history of smoking or alcohol abuse. FAMILY HISTORY She has two children. She was living with a son, now she is in a senior care. REVIEW OF SYSTEMS She denies any weight loss. No headache or dizziness. She was feeling weak, now she has started walking. PHYSICAL EXAMINATION GENERAL: Thin built, elderly female in no acute distress. VITAL SIGNS: Blood pressure 114/79, heart rate 75, respirations 18, temperature 95.7. HEENT: Pupils are equal and barely reactive to light. Her pupils are dilated. She recently had the eye examination. Her left eye has conjunctival congestion and circumcorneal congestion. CHEST: Air entry equal bilaterally. No rhonchi. CARDIOVASCULAR: S1, S2 normal. ABDOMEN: Benign. EXTREMITIES: No edema. LABORATORY DATA WBC count 3.2, hemoglobin 11.0, hematocrit 33.8, MCV 81, platelet count 156. Sodium 144, potassium 3.7, chloride 109, CO2 26, BUN 10, creatinine 0.54. INR 1.5. IMPRESSION 1. Bilateral reticulonodular infiltrates, possible inflammatory infective process, however, she has a history of cancer of the breast, malignancy is not ruled out. 2. Left eye inflammation. 3. History of cancer of the breast. PLAN I discussed wit the patient she is being treated with antibiotics. She will need repeat CT scan of the chest in four to six weeks. If infiltrate persists then she will need a PET scan or a biopsy. Further treatment will depend on the course in the hospital. Thank you Dr. Torres for this consultation. MD FLORY Iverson/DANIEL /8:33 PM /8:39 PM MTDAnayeli
[2016-08-13] MEDS: PIPERACIL-TAZO 4.5 GM PREMIX 100 ML IV SCH ×4 (03:00→19:40)
[2016-08-13] MEDS: CODEINE SULFATE 30 MG TAB PO PRN ×4 (04:51→21:58)
[2016-08-13] MEDS: HEPARIN SODIUM - SQ 10,000 UNITS/ML VIAL SQ SCH ×3 (04:51→21:58)
[2016-08-13] MEDS: ACETAMIN 325 MG/BUTALBITAL 50 MG/CAFFEINE 40 MG TAB PO PRN ×4 (04:51→21:58)
[2016-08-13] MEDS: SODIUM CHLORIDE 0.9% FLUSH 5 ML FLUSH IVF PRN ×3 (04:52→21:57)
[2016-08-13 06:10] LABS: INTERNATIONAL NORMALIZED RATIO 1.3 RATIO; PROTHROMBIN TIME - PATIENT 14.1 SEC (9.8-11.6)
[2016-08-13 06:12] LABS: AUTOMATED NEUTROPHIL # 1.2 TH/MM3 (1.8-7.7); BASOPHIL % 0.7 % (0.0-2.0); EOSINOPHIL # 0.1 TH/MM3 (0-0.4); EOSINOPHIL % 3.9 % (0.0-4.0); HEMATOCRIT 34.3 % (35.0-46.0); HEMO FLAGS DIFF FINAL; LYMPH % 46.1 % (9.0-44.0); LYMPHOCYTE # 1.5 TH/MM3 (1.0-4.8); MEAN CELL VOLUME 81.8 FL (80.0-100.0); MEAN CORPUSCULAR HEMOGLOBIN 26.3 PG (27.0-34.0); MEAN CORPUSCULAR HGB CONC 32.1 % (32.0-36.0); MONO % 14.7 % (0.0-8.0); NEUT % 34.6 % (16.0-70.0); PLATELET COUNT 146 TH/MM3 (150-450); RED BLOOD COUNT 4.19 MIL/MM3 (4.00-5.30); RED CELL DISTRIBUTION WIDTH 17.2 % (11.6-17.2); WHITE BLOOD COUNT 3.4 TH/MM3 (4.0-11.0)
[2016-08-13 06:31] LABS: BICARBONATE 23.3 MEQ/L (21.0-32.0); MAGNESIUM 1.3 MG/DL (1.5-2.5); POTASSIUM 5.6 MEQ/L (3.5-5.1)
[2016-08-13 06:54] LABS: CALCIUM-PROTEIN CORRECTED 8.4 MG/DL (8.5-10.1)
[2016-08-13 08:10] VITALS: BP 118/90; PULSE 86; RESP 19; TEMP 95.4; O2SAT 90
[2016-08-13] MEDS: MOXIFLOXACIN 0.5% OPHT SOLN 3 ML BTL EACH EYE SCH ×2 (08:13→12:07)
[2016-08-13] MEDS: ERYTHROMYCIN 0.5% OPTH OINT 3.5 GM TUBO EACH EYE SCH ×2 (08:13→12:07)
[2016-08-13] MEDS ORDERED: MAGNESIUM SULFATE 1 GM PREMIX 100 ML IV ONE (08:15)
[2016-08-13 09:17] VITALS: O2SAT 98
[2016-08-13] MEDS: guaiFENesin/DEXTROMETHORPHAN 200 MG/20 MG/10 ML CUP PO PRN ×2 (09:43→23:15)
--- NOTE | 2016-08-13 11:01 | HHI.PR ---
Subjective Remarks Follow-up for pneumonia. She remains confused and a poor historian. The patient still has cough. She has some blurred vision in her left eye. The patient is unable to get in touch her son to see what medications she is supposed to be at home. She says she is her medications at a [facility] in [facility]. She's not sure what I physician she sees. She is not sure her primary care doctor is. Objective Vitals Vital Signs Date Time Temp Pulse Resp B/P Pulse Ox O2 Delivery O2 Flow Rate FiO2 08/13/16 08:10 95.4 86 19 118/90 90 08/13/16 05:59 16 08/13/16 05:59 16 08/12/16 20:52 98.1 85 18 119/83 97 08/12/16 16:12 95.7 75 18 114/79 92 08/12/16 11:50 96.7 96 18 109/73 91 Result Diagram: 08/13/16 0521 08/13/16 0521 Imaging Last Impressions Chest X-Ray 08/11/16 1402 Signed Impressions: Service Date/Time: Thursday, August 11, 2016 14:24 - CONCLUSION: No acute disease. Tulio Schultz MD CT Angiography 08/11/16 0000 Signed Impressions: Service Date/Time: Thursday, August 11, 2016 17:55 - CONCLUSION: 1. No PE. 2. Scattered reticulonodular infiltrates throughout both lung tan. This suggest inflammatory process such as pneumonia. Lung metastatic disease would be a second possibility since patient has a history of breast cancer. Ross Louis MD Objective Remarks GENERAL: Well-developed well-nourished. In no acute distress. SKIN: Warm and dry. No lesions noted. HEENT: Normocephalic. Left eye conjunctival irritation. Pupils equal and round. Mucous membranes pink and moist. CARDIOVASCULAR: Regular rate and rhythm. No murmur appreciated. RESPIRATORY: No accessory muscle use. Clear to auscultation. Breath sounds equal bilaterally. GASTROINTESTINAL: Abdomen soft, non-tender, nondistended. Bowel sounds x4. MUSCULOSKELETAL: No obvious deformities. No clubbing or cyanosis. No edema. NEUROLOGICAL: Awake and alert. No focal neurological deficits. Moves upper and lower extremities spontaneously. Normal speech. PSYCHIATRIC: Appropriate mood and affect; insight and judgment fair to normal. A/P Problem List: (1) Pneumonia ICD Code: J18.9 Status: Acute (2) HTN (hypertension) ICD Code: I10 Status: Chronic (3) Orbital cellulitis on left ICD Code: H05.012 Status: Chronic Assessment and Plan 65-year-old female with a history of hypertension and dyslipidemia presented with: Pneumonia with hypoxia Imaging reviewed: Chest CT shows scattered reticulonodular infiltrates throughout both lung tan, suggestive of inflammatory/infectious process although metastatic disease is in the differential. -Giving IV Vancomycin and Zosyn with pharmacy consult for dosing -Guaifen-DM when necessary -Oxygen as needed, incentive spirometer -Checked urinary antigens and sputum culture -Consulted pulmonology, needs follow-up CT in 4-6 weeks Orbital cellulitis, chronic, was being treated outpatient -Discussed with RN, resume antibiotics when medications reconciled -Consulted ophthalmology, obtain outpatient records Hypertension, chronic, currently stable -Monitor vitals -Awaiting med rec, resume when reconciled, prns if necessary History of PE -INR subtherapeutic at 1.5, monitor INR -Continue Coumadin with pharmacy consult Hyperkalemia -DC potassium supplementation -Kayexalate 1 -Follow-up BMP -Magnesium 1.3, give IV mag DVT prophylaxis: Heparin Written by Jb Aleman, acting as scribe for Dr. Torres on 08/13/16 at 11:01. All or portions of this note were transcribed by scribe []. I, Dr. Shantanu Torres personally performed the history, physical exam, and medical decision making; and confirmed the accuracy of the information in the transcribed note. Authenticated by Dr. Shantanu Torres on 08/13/16 at 16:30. Discharge Planning PT recommends SNF, patient recently DC'd. May need home O2. Case management consult. Problem Qualifiers (1) Pneumonia: Qualified Code: J18.9 - Pneumonia due to infectious organism, unspecified laterality, unspecified part of lung (2) HTN (hypertension): Qualified Code: I10 - Essential hypertension Jb Aleman Aug 13, 2016 11:01 Shantanu Torres MD Aug 13, 2016 16:30
[2016-08-13 11:04] VITALS: BP 121/81; PULSE 89; RESP 18; TEMP 96.9; O2SAT 92
[2016-08-13] MEDS ORDERED: SODIUM POLYSTYRENE SULFONATE SUSP 15 GM/60 ML CUP PO ONE (12:00)
[2016-08-13] MEDS: MAGNESIUM OXIDE 400 MG TAB PO SCH ×2 (12:07→19:41)
[2016-08-13] MEDS: VANCOMYCIN 1,000 MG/NS 250 ML IV SCH ×4 (12:07→23:15)
--- NOTE | 2016-08-13 13:20 | HHI.PR ---
Subjective Remarks I called all the Retina specialist in [facility] and found out she has been getting treatment at [facility]. 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 She was started on fortified antibiotic eyedrops (Vanc, Fortaz, Ampho), Cosopt OS BID, Atropine OS BID, Pred QID OS. She was supposed to have followed up on 08/08 but I don't believe she made it to the appt. Currently not complaining of any eye pain. Objective Vital Signs Date Time Temp Pulse Resp B/P Pulse Ox O2 Delivery O2 Flow Rate FiO2 08/13/16 11:20 18 08/13/16 11:20 18 08/13/16 11:04 96.9 89 18 121/81 92 08/13/16 08:10 95.4 86 19 118/90 90 08/12/16 20:52 98.1 85 18 119/83 97 08/12/16 16:12 95.7 75 18 114/79 92 Result Diagram: 08/13/16 0521 08/13/16520 Objective Remarks Va OD 20/40, OS 20/200 IOP 14, 35 mm Hg Anterior exam OD - lid normal, C/S W&Q, K clear, AC deep, Pupil round, cataract OS - lid normal, conj injection, K clear, AC deep, pupil round, cataract Assessment and Plan Problem List: (1) Conjunctival injection Status: Acute Plan: She has been getting treatment at [facility] for endophthalmitis OS (unsure etiology - endogenous??) since 07/23/16. s/p intravitreal antibiotics (vanc, fortaz, ampho). She was started on fortified antibiotic eyedrops (Vanc, Fortaz, Ampho), Cosopt OS BID, Atropine OS BID, Pred QID OS. She was supposed to have followed up on 08/08 but I don't believe she made it to the appt. Will restart her on drops and follow her while she is in the hospital. Leticia King MD Aug 13, 2016 13:20
[2016-08-13 15:56] VITALS: BP 127/87; PULSE 71; RESP 18; TEMP 96; O2SAT 93
[2016-08-13] MEDS ORDERED: WARFARIN SOD 1 MG TAB PO SCH (16:00)
[2016-08-13] MEDS: prednisoLONE ACETATE 1% OPHT SUSP 5 ML BTL LEFT EYE SCH ×2 (17:50→19:40)
[2016-08-13] MEDS: WARFARIN SOD 5 MG TAB PO SCH (17:51)
[2016-08-13] MEDS: [UNRECOGNIZED DRUG - OTHER] LEFT EYE SCH ×2 (18:20→20:52)
[2016-08-13] MEDS: VANCOMYCIN LEFT EYE SCH ×2 (18:20→20:52)
[2016-08-13] MEDS: VORICONAZOLE LEFT EYE SCH ×2 (18:21→20:52)
[2016-08-13] MEDS: CEFTAZIDIME LEFT EYE SCH ×2 (18:22→20:52)
[2016-08-13 19:34] VITALS: BP 114/77; PULSE 81; RESP 20; TEMP 97.4; O2SAT 93
[2016-08-13] MEDS: ATROPINE SULFATE 1% OPHT SOLN 2 ML BTL LEFT EYE SCH (19:40)
[2016-08-13] MEDS: DORZOLAMIDE/TIMOLOL OPTH SOLN 10 ML BTL LEFT EYE SCH (19:40)
[2016-08-13] MEDS: ATORVASTATIN 40 MG TAB PO SCH (19:41)
[2016-08-13 21:25] LABS: C. DIFF EPI 027 PRESUMPTIVE NEGATIVE (NEGATIVE); C. DIFF TOXIN PCR NEGATIVE (NEGATIVE)
[2016-08-13 23:49] VITALS: BP 120/85; PULSE 86; RESP 20; TEMP 98.7; O2SAT 95
[2016-08-14] MEDS: ACETAMIN 325 MG/BUTALBITAL 50 MG/CAFFEINE 40 MG TAB PO PRN ×3 (01:58→14:12)
[2016-08-14] MEDS: CODEINE SULFATE 30 MG TAB PO PRN ×2 (01:58→09:28)
[2016-08-14] MEDS: PIPERACIL-TAZO 4.5 GM PREMIX 100 ML IV SCH ×2 (01:58→09:27)
[2016-08-14 04:36] VITALS: BP 147/78; PULSE 78; RESP 20; TEMP 97.8; O2SAT 95
[2016-08-14] MEDS ORDERED: DIPHENOXYLATE/ATROPINE 2.5 MG/0.025 MG TAB PO PRN (05:45)
[2016-08-14] MEDS: HEPARIN SODIUM - SQ 10,000 UNITS/ML VIAL SQ SCH ×2 (05:49→14:12)
[2016-08-14] MEDS: SODIUM CHLORIDE 0.9% FLUSH 5 ML FLUSH IVF PRN ×2 (05:50→09:28)
[2016-08-14 06:57] LABS: INTERNATIONAL NORMALIZED RATIO 1.4 RATIO; PROTHROMBIN TIME - PATIENT 15.4 SEC (9.8-11.6)
[2016-08-14 07:09] VITALS: BP 150/82; PULSE 67; RESP 16; TEMP 98.1; O2SAT 95
[2016-08-14 07:29] LABS: BICARBONATE 26.3 MEQ/L (21.0-32.0); MAGNESIUM 1.8 MG/DL (1.5-2.5); POTASSIUM 3.7 MEQ/L (3.5-5.1)
[2016-08-14] MEDS: VANCOMYCIN LEFT EYE SCH (09:00)
[2016-08-14] MEDS: [UNRECOGNIZED DRUG - OTHER] LEFT EYE SCH (09:00)
[2016-08-14] MEDS: VORICONAZOLE LEFT EYE SCH (09:00)
[2016-08-14] MEDS: CEFTAZIDIME LEFT EYE SCH (09:00)
[2016-08-14] MEDS ORDERED: CODE30TA PO (09:15)
[2016-08-14] MEDS ORDERED: BUTATAB6 PO (09:15)
[2016-08-14] MEDS: prednisoLONE ACETATE 1% OPHT SUSP 5 ML BTL LEFT EYE SCH (09:27)
[2016-08-14] MEDS: ATROPINE SULFATE 1% OPHT SOLN 2 ML BTL LEFT EYE SCH (09:27)
[2016-08-14] MEDS: DORZOLAMIDE/TIMOLOL OPTH SOLN 10 ML BTL LEFT EYE SCH (09:27)
[2016-08-14] MEDS: LACTOBACILLUS ACIDOPHILUS TAB PO SCH ×2 (09:29→14:12)
[2016-08-14] MEDS: MAGNESIUM OXIDE 400 MG TAB PO SCH (09:29)
[2016-08-14] MEDS ORDERED: AUGM875T PO (10:24)
--- NOTE | 2016-08-14 10:25 | HHI.DCPOC ---
Discharge Care Plan Diagnosis: (1) Conjunctival injection (2) Pneumonia (3) Essential hypertension Goals to Promote Your Health * To prevent worsening of your condition and complications * To maintain your health at the optimal level Directions to Meet Your Goals Take your medications as prescribed Follow your dietary instruction Follow activity as directed Keep your appointments as scheduled Take your immunizations and boosters as scheduled If your symptoms worsen call your PCP, if no PCP go to Urgent Care Center or Emergency Room Smoking is Dangerous to Your Health. Avoid second hand smoke Call the 24-hour hour crisis hotline for domestic abuse at Josie Dunne PA-C Aug 14, 2016 10:25 am
--- NOTE | 2016-08-14 10:27 | HHI.FF ---
Face to Face Verification Diagnosis: (1) Pneumonia (2) Conjunctival injection (3) Orbital cellulitis on left (4) HTN (hypertension) Physical Therapy Order: Evaluate and Treat, Improve ambulation, Strength and gait training Home Health Nursing Order: Medical education Signs/symptoms of disease process Nursing assessment with vital signs I have seen patient Magalie S Day on 08/14/16. My clinical findings support the need for the requested home health care services because: Ltd mobility - disease progression Deconditioned w/ increased weakness Limited ability to care for self Impaired cognition/judgement I certify that my clinical findings support that this patient is homebound because: Unsteady gait/balance Unsafe to leave home unassisted Unable to use public transportation Josie Dunne PA-C Aug 14, 2016 10:27 am
--- NOTE | 2016-08-14 10:34 | HHI.DS ---
Discharge Summary Admission Date Aug 11, 2016 at 7:34 pm Discharge Date: Aug 14, 2016 Admitting Diagnosis Sepsis, PNA (1) Pneumonia ICD Code: J18.9 Diagnosis: Principal (2) HTN (hypertension) ICD Code: I10 Diagnosis: Secondary (3) Orbital cellulitis on left ICD Code: H05.012 Diagnosis: Secondary Procedures None. Brief History - From Admission 65 y/o female with a history of HTN and hyperlipidemia presented to the ED from a local intermediate with complaints of a cough and sob for the past month. She states she has had a cough and sob for the last month. Denies any sputum production. According to EMS she had a temp of 101. She also complains of headaches and has seen an eye doctor several times, but has not found out the cause. She states she was on chemotherapy for breast cancer but last dose was 4 months ago. She denies any chest pain, or chills, but states at times she does have nausea. CBC/BMP: 08/13/16 0521 08/14/16 0552 Significant Findings Laboratory Tests Test 08/11/16 08/11/16 08/12/16 08/13/16 14:15 15:40 06:30 05:21 Mean Corpuscular Hemoglobin 26.8 PG 26.5 PG 26.3 PG (27.0-34.0) (27.0-34.0) (27.0-34.0) Red Cell Distribution Width 17.3 % 17.4 % (11.6-17.2) (11.6-17.2) Monocytes (%) (Auto) 14.1 % 17.3 % 14.7 % (0.0-8.0) (0.0-8.0) (0.0-8.0) Lymphocytes # (Auto) 0.7 TH/MM3 (1.0-4.8) Prothrombin Time 16.6 SEC 14.1 SEC (9.8-11.6) (9.8-11.6) Chloride Level 108 MEQ/L 109 MEQ/L 117 MEQ/L (98-107) (98-107) (98-107) Troponin I LESS THAN 0.02 NG/ML (0.02-0.05) White Blood Count 3.2 TH/MM3 3.4 TH/MM3 (4.0-11.0) (4.0-11.0) Hemoglobin 11.0 GM/DL 11.0 GM/DL (11.6-15.3) (11.6-15.3) Hematocrit 33.8 % 34.3 % (35.0-46.0) (35.0-46.0) Neutrophils # (Auto) 1.4 TH/MM3 1.2 TH/MM3 (1.8-7.7) (1.8-7.7) Random Glucose 71 MG/DL (74-106) Calcium Level 8.3 MG/DL 7.2 MG/DL (8.5-10.1) (8.5-10.1) Platelet Count 146 TH/MM3 (150-450) Lymphocytes (%) (Auto) 46.1 % (9.0-44.0) Sodium Level 148 MEQ/L (136-145) Potassium Level 5.6 MEQ/L (3.5-5.1) Blood Urea Nitrogen 5 MG/DL (7-18) Creatinine 0.48 MG/DL (0.50-1.00) Protein Corrected Calcium 8.4 MG/DL (8.5-10.1) Magnesium Level 1.3 MG/DL (1.5-2.5) Total Protein 4.9 GM/DL (6.4-8.2) Test 08/14/16 05:52 Prothrombin Time 15.4 SEC (9.8-11.6) Chloride Level 109 MEQ/L (98-107) Random Glucose 69 MG/DL (74-106) Calcium Level 8.3 MG/DL (8.5-10.1) Imaging Last Impressions Chest X-Ray 08/11/16 1402 Signed Impressions: Service Date/Time: Thursday, August 11, 2016 14:24 - CONCLUSION: No acute disease. Tulio Schultz MD CT Angiography 08/11/16 0000 Signed Impressions: Service Date/Time: Thursday, August 11, 2016 17:55 - CONCLUSION: 1. No PE. 2. Scattered reticulonodular infiltrates throughout both lung tan. This suggest inflammatory process such as pneumonia. Lung metastatic disease would be a second possibility since patient has a history of breast cancer. Ross Luois MD PE at Discharge GENERAL: Well-developed well-nourished. In no acute distress. SKIN: Warm and dry. No lesions noted. HEENT: Normocephalic. Left eye conjunctival irritation. Pupils equal and round. Mucous membranes pink and moist. CARDIOVASCULAR: Regular rate and rhythm. No murmur appreciated. RESPIRATORY: No accessory muscle use. Clear to auscultation. Breath sounds equal bilaterally. GASTROINTESTINAL: Abdomen soft, non-tender, nondistended. Bowel sounds x4. MUSCULOSKELETAL: No obvious deformities. No clubbing or cyanosis. No edema. NEUROLOGICAL: Awake and alert. No focal neurological deficits. Moves upper and lower extremities spontaneously. Normal speech. PSYCHIATRIC: Appropriate mood and affect; insight and judgment fair to normal. Pt update on day of discharge The patient reports felling better today. Diarrhea resolved. Denies shortness of breath or cough. No fevers overnight. She has no other medical complaints. She adamantly does not want to go to rehab, she states she was at rehab recently and hated it. She plans to go home with [facility]. She lives with her son who is in the home most of the time, verified by top case assembler. Hospital Course 65-year-old female with a history of hypertension and dyslipidemia presented with: Pneumonia with hypoxia Imaging reviewed: Chest CT shows scattered reticulonodular infiltrates throughout both lung tan, suggestive of inflammatory/infectious process although metastatic disease is in the differential. -Giving IV Vancomycin and Zosyn with pharmacy consult for dosing -Guaifen-DM prn cough -Oxygen as needed, incentive spirometer -Checking urinary antigens and sputum culture -Consulted pulmonology, needs follow-up CT in 4-6 weeks -Symptoms much improved, O2 sat stable on room air, will discharge home with PT (patient refusing rehabilitation), to complete 2 week course of antibiotics with Augmentin Orbital cellulitis, chronic, was being treated outpatient -Discussed with RN, resumed antibiotics when medications reconciled -Consulted ophthalmology, obtained outpatient records, she was diagnosed with endophthalmitis, started on fortified antibiotic eyedrops (Vanc, Fortaz, Ampho), Cosopt OS BID, Atropine OS BID, Pred QID OS. -Continued medications Hypertension, chronic, currently stable -Monitor vitals -Continue patient's lisinopril and atenolol History of PE -INR subtherapeutic at 1.5, monitor INR -Continue Coumadin with pharmacy consult Hyperkalemia -DC potassium supplementation -Kayexalate 1 -Follow-up BMP -Magnesium 1.3, given IV mag DVT prophylaxis: Heparin Written by Josie Dunne, acting as scribe for Dr. Torres on 08/14/16 at 09: 30. All or portions of this note were transcribed by scribe []. I, Dr. Shantanu Torres personally performed the history, physical exam, and medical decision making; and confirmed the accuracy of the information in the transcribed note. Authenticated by Dr. Shantanu Torres on 08/14/16 at 14:09. Pt Condition on Discharge: Stable Discharge Disposition: Disch w/ Home Health Serv Discharge Time: > 30 minutes Discharge Instructions DIET: Follow Instructions for: Heart Healthy Diet Activities you can perform: Regular-No Restrictions Follow up Referrals: Ophthalmology - 3-5 Days PCP Follow-up - 1 Week New Medications: Amoxicillin-Clavulanate (Augmentin) 875-125 mg Tab 875 MG PO BID not for use in CrCl <30 ml/min. Infection #24 Ref 0 TAB Oykfgajnie-Vwwobzbpvfoop-Lyxhrqhj (Pvmbuwydbg-Tbctvuldadaok-Mqimlpcl) 50-325-40 Mg Tab 1 TAB PO Q6HR PRN HEADACHE #12 TAB Codeine Sulfate (Codeine Sulfate) 30 Mg Tab 30 MG PO Q6HR PRN HEADACHE #12 TAB Continued Medications: Amphotericin B Inj (Amphotericin B Inj) 50 Mg Inj 5 MG LEFT EYE DAILY Atenolol (Atenolol) 25 Mg Tab 25 MG PO DAILY hypertension Days 30 Ref 0 TAB Atorvastatin (Atorvastatin) 40 Mg Tab 40 MG PO HS Cholesterol Management #30 Ref 0 TAB Erythromycin Opth Oint (Erythromycin Opth Oint) 5 Mg/Gm Oint 1 APPLIC EACH EYE QID Infection #1 Ref 0 TUBE Lisinopril (Lisinopril) 5 Mg Tab 5 MG PO DAILY Blood Pressure Management #30 Ref 0 TAB Moxifloxacin Opth Drops (Vigamox Opth Drops) 0.5 % Soln 1 DROP EACH EYE QID Infection #1 Ref 0 BOTTLE Warfarin (Coumadin) 5 Mg Tab 5 MG PO DAILY Blood Clot Prevention #30 Ref 0 TAB Discontinued Medications: Amoxicillin-Clavulanate (Augmentin) 500-125 mg Tab 500 MG PO BID Infection Days 7 Ref 0 TAB Ckrjngolei-Uppffgcqlezky-Zmigwnbr-Codeine (Qfcnaoydfz-Elpjolqgtzkor-Rglzeivc- Codeine) 14-074-96-30 Mg Cap 1-2 CAP PO Q4H Do not exceed 6 capsules/day. PRN HEADACHE Ref 0 CAP Dronabinol (Dronabinol) 2.5 Mg Cap 2.5 MG PO BID Ref 0 CAP Epinephrine Inj (Epinephrine Inj) 1 Mg/Ml Inj 0.3 MG IV PUSH ONCE PRN ALLERGIC REACTION #1 VIAL Epinephrine Inj (Epinephrine Inj) 1 Mg/Ml Inj 0.3 MG SQ ONCE Give with any signs of respiratory distress. PRN ALLERGIC REACTION #1 VIAL Hydrocortisone Inj (Solu-Cortef Inj) 250 Mg Inj 250 MG IV PUSH ONCE Give over 30-60 seconds. PRN ALLERGIC REACTION #1 Ref 0 VIAL Lisinopril (Lisinopril) 40 Mg Tab 40 MG PO DAILY Blood Pressure Management #30 Ref 0 TAB Prednisone (Prednisone) 5 Mg Tab 5 MG PO DIRECTED 60 mg po daily for three days then 50 mg po daily for three days then 40 mg po daily for three days then 30 mg po daily for three days then 20 mg po daily for three days then 10 mg po daily for three days then 5mg po daily for three days then stop. inflammation Days 21 Ref 0 TAB Vancomycin (Vancomycin) 125 Mg Cap 50 MG LEFT EYE DAILY Infection Ref 0 CAP Vancomycin Inj (Vancomycin Inj) 10 Gm Inj 1250 MG IV Q12HR orbital cellulitis Days 10 Ref 0 VIAL Josie Dunne PA-C Aug 14, 2016 10:34 Shantanu Torres MD Aug 14, 2016 14:09
[2016-08-14 11:11] VITALS: BP 136/86; PULSE 72; RESP 16; TEMP 97.8; O2SAT 91
[2016-08-14 11:15] VITALS: O2SAT 95
[2016-08-14] MEDS ORDERED: PHARMACY ORDERED LAB XX ONE (11:45)
[2016-08-14] MEDS: VANCOMYCIN 1,000 MG/NS 250 ML IV SCH ×2 (12:00)
[2016-08-14] MEDS ORDERED: WARFARIN SOD 2 MG TAB PO SCH (16:00)
== END 2016-08-14 14:51 | disposition home or self-care (01) ==
LOC: NEPC 13:54 → NEDA 19:34 → INTOOBSV 19:34 → NEPGCP 22:06
PROVIDERS: ADMIT Internal Medicine; ATTEND Internal Medicine
DX: J18.9 Pneumonia, unspecified organism (principal); H05.012 Cellulitis of left orbit; I10 Essential (primary) hypertension; E78.5 Hyperlipidemia, unspecified; J44.9 Chronic obstructive pulmonary disease, unspecified; K21.9 Gastro-esophageal reflux disease without esophagitis; Z86.711 Personal history of pulmonary embolism; E87.5 Hyperkalemia; Z79.01 Long term (current) use of anticoagulants; Z85.3 Personal history of malignant neoplasm of breast; Z92.21 Personal history of antineoplastic chemotherapy; Z92.3 Personal history of irradiation; Z90.11 Acquired absence of right breast and nipple; Z79.52 Long term (current) use of systemic steroids
CPT/HCPCS: 71010; 71275; 80048; 82550; 83605; 83735; 84155; 84484; 85025; 85610; 85730; 87040; 87493; 87506; 87804; 93005; 94150; 96361; 96365; 96367; 97162; 99285; G0378; G8987; G8988; J1644; J2543; J3370; J3475; J3480; J7030; J7040; J7050; Q9967

== ENCOUNTER 2016-08-30 05:32 | Inpatient (IN) | payer MEDICARE, OTHER ==
[2016-08-30] VITALS (7 sets, daily range): BP systolic 106–177; BP diastolic 72–110; PULSE 80–112; RESP 18–20; TEMP 98.5–102; O2SAT 90–99
[~2016-08-30] VITALS: Ht 160 cm; Wt 48.4 kg
[~2016-08-30 05:32] MED LIST changes: -AUGM500T7 PO; +AUGM875T PO; +BUTATAB6 PO; +CODE30TA PO; -EPIN1INJ21 IV PUSH; -EPIN1INJ21 SQ; +LISI-519 PO; -LISI40TA PO; -PRED5TAB PO; -SOLU250I IV PUSH; -VANC10IN IV; +[UNRECOGNIZED DRUG - CODE] LEFT EYE
[2016-08-30] MEDS ORDERED: SODIUM CHLORIDE 0.9% FLUSH 10 ML FLUSH IVF PRN (06:00)
--- NOTE | 2016-08-30 06:05 | PD ---
HPI Chief Complaint: Respiratory Symptoms Time Seen by Provider: 05:49 Travel History International Travel<30 days: No Contact w/Intl Traveler<30days: No Traveled to known affect area: No History of Present Illness HPI 66yo F with PMH of HTN, HLD, endophthalmitis, PE, breast CA s/p mastectomy and chemotherapy presents to the ED with c/o sob, cough and fever today. Pt was admitted to [facility] 08/11/16-08/14/16 for sepsis secondary to pneumonia. Son states that she was discharged without her coumadin so she has not been taking that. Denies any chest pain, n/v, abdominal pain, focal weakness or numbness. PFSH Past Medical History Asthma: No Blood Disorders: No Anxiety: No Depression: No Heart Rhythm Problems: No Cancer: Yes (R BREAST CA ) Cardiovascular Problems: Yes (ARRYTHMIA) High Cholesterol: No Chemotherapy: Yes Chest Pain: No Congestive Heart Failure: No COPD: Yes Diabetes: No Diminished Hearing: No Endocrine: No Gastrointestinal Disorders: Yes (REFLUX) GERD: Yes Genitourinary: No Headaches: Yes Hepatitis: No Hiatal Hernia: No Hypertension: Yes Immune Disorder: No Kidney Stones: Yes Musculoskeletal: Yes (TMJ) Neurologic: Yes (VERTIGO) Psychiatric: No Reproductive: No Respiratory: Yes (NODULES ) Immunizations Current: Yes Sleep Apnea: No Thyroid Disease: No Menopausal: Yes : 2 Para: 2 Past Surgical History Pacemaker: No Other Surgery: Yes (RT mastectomy) Social History Alcohol Use: No Tobacco Use: No Substance Use: No Allergies-Medications (Allergen,Severity, Reaction): Coded Allergies: *MDRO Multi-Drug Resistant Organism (Unverified Adverse Reaction, Unknown , 08/30/16) Cdiff 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 + MRSA leg 07/31/14. Reported Meds & Prescriptions Reported Meds & Active Scripts Active Augmentin (Amoxicillin-Clavulanate) 875-125 mg Tab 875 Mg PO BID not for use in CrCl <30 ml/min. Vpmrjlddgc-Twsrpjgdkwxgv-Fyigkqey 50-325-40 Mg Tab 1 Tab PO Q6HR PRN Vigamox Opth Drops (Moxifloxacin Opth Drops) 0.5 % Soln 1 Drop EACH EYE QID Erythromycin Opth Oint 5 Mg/Gm Oint 1 Applic EACH EYE QID Coumadin (Warfarin) 5 Mg Tab 5 Mg PO DAILY Atenolol 25 Mg Tab 25 Mg PO DAILY 30 Days Reported Percocet (Oxycodone-Acetaminophen) 5-325 mg Tab 1 Tab PO Q6H PRN Lisinopril 5 Mg Tab 5 Mg PO DAILY Atorvastatin (Atorvastatin Calcium) 40 Mg Tab 40 Mg PO HS Review of Systems Except as stated in HPI: all other systems reviewed are Neg Physical Exam Narrative GENERAL: 66yo F not in distress. SKIN: Focused skin assessment warm/dry. HEAD: Atraumatic. Normocephalic. EYES: Pupils dilated. Pt is on atropine eye drop. Left eye has chronic infection. ENT: No nasal bleeding or discharge. Mucous membranes pink and moist. NECK: Trachea midline. No JVD. CARDIOVASCULAR: Regular rate and rhythm. No murmur appreciated. RESPIRATORY: No accessory muscle use. Crackles bilateral lung base. GASTROINTESTINAL: Abdomen soft, non-tender, nondistended. No rebound tenderness or guarding. MUSCULOSKELETAL: No obvious deformities. No clubbing. No cyanosis. No edema. NEUROLOGICAL: Awake and alert. No obvious cranial nerve deficits. Motor grossly within normal limits. Normal speech. PSYCHIATRIC: Appropriate mood and affect; insight and judgment normal. Data Data Last Documented VS Vital Signs Date Time Temp Pulse Resp B/P Pulse Ox O2 Delivery O2 Flow Rate FiO2 08/30/16 09:26 98.5 97 20 136/78 98 Room Air 08/30/16 07:32 2 Orders Complete Blood Count With Diff (08/30/16 05:57) Basic Metabolic Panel (Bmp) (08/30/16 05:57) B-Type Natriuretic Peptide (08/30/16 05:57) Act Partial Throm Time (Ptt) (08/30/16 05:57) Prothrombin Time / Inr (Pt) (08/30/16 05:57) Ckmb (Isoenzyme) Profile (08/30/16 05:57) Troponin I (08/30/16 05:57) Influenzae A/B Antigen (08/30/16 05:57) Blood Culture (08/30/16 05:57) Iv Access Insert/Monitor (08/30/16 05:57) Electrocardiogram (08/30/16 05:57) Ecg Monitoring (08/30/16 05:57) Oximetry (08/30/16 05:57) Oxygen Administration (08/30/16 05:57) Chest, Single Ap (08/30/16 05:57) Ct Pulmonary Angiogram (08/30/16 05:57) Sodium Chloride 0.9% Flush (Ns Flush) (08/30/16 06:00) Lactic Acid Sepsis Protocol (08/30/16 05:57) Sodium Chlor 0.9% 1000 Ml Inj (Ns 1000 M (08/30/16 06:15) Urinalysis - C+S If Indicated (08/30/16 07:24) Cefepime Inj (Maxipime Inj) (08/30/16 07:26) Azithromycin Inj (Zithromax Inj) (08/30/16 07:26) Acetaminophen (Tylenol) (08/30/16 08:15) Iohexol 350 Inj (Omnipaque 350 Inj) (08/30/16 08:54) Admit Order (Ed Use Only) (08/30/16 11:52) Labs Laboratory Tests Test 08/30/16 08/30/16 08/30/16 06:55 07:30 07:50 White Blood Count 11.4 TH/MM3 Red Blood Count 4.41 MIL/MM3 Hemoglobin 12.3 GM/DL Hematocrit 37.4 % Mean Corpuscular Volume 84.9 FL Mean Corpuscular Hemoglobin 27.9 PG Mean Corpuscular Hemoglobin 32.9 % Concent Red Cell Distribution Width 18.8 % Platelet Count 227 TH/MM3 Mean Platelet Volume 8.7 FL Neutrophils (%) (Auto) 84.2 % Lymphocytes (%) (Auto) 5.8 % Monocytes (%) (Auto) 9.2 % Eosinophils (%) (Auto) 0.3 % Basophils (%) (Auto) 0.5 % Neutrophils # (Auto) 9.6 TH/MM3 Lymphocytes # (Auto) 0.7 TH/MM3 Monocytes # (Auto) 1.1 TH/MM3 Eosinophils # (Auto) 0.0 TH/MM3 Basophils # (Auto) 0.1 TH/MM3 CBC Comment AUTO DIFF Differential Comment AUTO DIFF CONFIRMED Sodium Level 138 MEQ/L Potassium Level 4.2 MEQ/L Chloride Level 103 MEQ/L Carbon Dioxide Level 28.2 MEQ/L Anion Gap 7 MEQ/L Blood Urea Nitrogen 12 MG/DL Creatinine 0.75 MG/DL Estimat Glomerular Filtration 77 ML/MIN Rate Random Glucose 119 MG/DL Lactic Acid Level 1.0 mmol/L Calcium Level 9.5 MG/DL Total Bilirubin 0.7 MG/DL Direct Bilirubin 0.1 MG/DL Indirect Bilirubin 0.6 MG/DL Aspartate Amino Transf 29 U/L (AST/SGOT) Alanine Aminotransferase 21 U/L (ALT/SGPT) Alkaline Phosphatase 112 U/L Total Creatine Kinase 61 U/L Troponin I LESS THAN 0.02 NG/ML B-Type Natriuretic Peptide 34 PG/ML Total Protein 7.1 GM/DL Albumin 3.3 GM/DL Lipase 78 U/L Urine Color YELLOW Urine Turbidity CLOUDY Urine pH 8.0 Urine Specific [place] 1.017 Urine Protein TRACE mg/dL Urine Glucose (UA) NEG mg/dL Urine Ketones NEG mg/dL Urine Occult Blood NEG Urine Nitrite NEG Urine Bilirubin NEG Urine Urobilinogen LESS THAN 2.0 MG/DL Urine Leukocyte Esterase LARGE Urine RBC 2 /hpf Urine WBC 4 /hpf Urine Squamous Epithelial 1 /hpf Cells Urine Transitional Epithelial <1 /hpf Cells Urine Amorphous Sediment MOD Urine Bacteria RARE /hpf Microscopic Urinalysis Comment CULT NOT INDICATED Prothrombin Time 11.4 SEC Prothromb Time International 1.0 RATIO Ratio Activated Partial 25.8 SEC Thromboplast Time MDM Medical Decision Making Medical Screen Exam Complete: Yes Emergency Medical Condition: Yes Interpretation(s) EKG: Sinus tachycardia at 108bpm. Normal axis. No ST segment elevation or depression. Differential Diagnosis Pneumonia vs. pleural effusion vs. PE vs. CHF exacerbation vs. ACS Narrative Course 66yo F with sob, cough and fever. Pt is not in respiratory distress and saturating at 94% on RA. However, she is mildly tachycardic, has history of PE and not on her coumadin. Sign out to next team to follow up labs, CTA chest and reevaluate. Diagnosis Primary Impression: Pneumonia Qualified Code: J18.9 - Pneumonia due to infectious organism, unspecified laterality, unspecified part of lung Brigette Cross DO Aug 30, 2016 06:05 Brigette Cross DO Aug 30, 2016 06:05
[2016-08-30] MEDS ORDERED: SODIUM CHLOR 0.9% 1000 ML INJ 1,000 ML IV ONE (06:15)
[2016-08-30 07:23] LABS: AUTOMATED NEUTROPHIL # 9.6 TH/MM3 (1.8-7.7); BASOPHIL # 0.1 TH/MM3 (0-0.2); BASOPHIL % 0.5 % (0.0-2.0); EOSINOPHIL % 0.3 % (0.0-4.0); HEMATOCRIT 37.4 % (35.0-46.0); LYMPH % 5.8 % (9.0-44.0); LYMPHOCYTE # 0.7 TH/MM3 (1.0-4.8); MEAN CELL VOLUME 84.9 FL (80.0-100.0); MEAN CORPUSCULAR HEMOGLOBIN 27.9 PG (27.0-34.0); MEAN CORPUSCULAR HGB CONC 32.9 % (32.0-36.0); MONO % 9.2 % (0.0-8.0); NEUT % 84.2 % (16.0-70.0); PLATELET COUNT 227 TH/MM3 (150-450); RED BLOOD COUNT 4.41 MIL/MM3 (4.00-5.30); RED CELL DISTRIBUTION WIDTH 18.8 % (11.6-17.2); WHITE BLOOD COUNT 11.4 TH/MM3 (4.0-11.0)
--- NOTE | 2016-08-30 07:25 | RADRPT ---
EXAM DATE/TIME: 08/30/2016 06:34 [facility] COMPARISON: CHEST SINGLE AP, August 11, 2016, 14:24. INDICATIONS : Fever and cough. MEDICAL HISTORY : Chronic obstructive pulmonary disease. Carcinoma, breast. SURGICAL HISTORY : Infusaport ENCOUNTER: Initial ACUITY: 1 day PAIN SCORE: 0/10 LOCATION: Bilateral chest FINDINGS: A single view of the chest demonstrates the lungs to be symmetrically aerated without evidence of mas s, infiltrate or effusion. Giztmy-a-Copn is present on the left. The cardiomediastinal contours are unremarkable. Osseous structures are intact. CONCLUSION: Negative for acute process. Rasta High MD FACR on August 30, 2016 at 7:22 Board Certified Radiologist. This report was verified electronically.
[2016-08-30 07:26] LABS: HEMO FLAGS AUTO DIFF
[2016-08-30] MEDS ORDERED: CEFEPIME INJ 2,000 MG in SODIUM CHLORIDE 0.9% INJ 100 ML IV STA (07:26)
[2016-08-30] MEDS ORDERED: AZITHROMYCIN INJ 500 MG in SODIUM CHLOR 0.9% 250 ML INJ 250 ML IV STA (07:26)
[2016-08-30 07:44] LABS: ANION GAP 7 MEQ/L (5-15); BICARBONATE 28.2 MEQ/L (21.0-32.0); BLOOD UREA NITROGEN 12 MG/DL (7-18); CHLORIDE 103 MEQ/L (98-107); GLOMERULAR FILTRATION RATE 77 ML/MIN (>89); SODIUM (NA) 138 MEQ/L (136-145)
[2016-08-30 07:46] LABS: POTASSIUM 4.2 MEQ/L (3.5-5.1)
[2016-08-30 07:56] LABS: CREATINE KINASE 61 U/L (26-192)
[2016-08-30 07:56] LABS: BACTERIA, URINE RARE /hpf; BLOOD, URINE NEG (NEG); GLUCOSE,URINE NEG (NEG); KETONE, URINE NEG (NEG); NITRITE,URINE NEG (NEG); SQUAMOUS EPITHELIAL CELL URINE 1 /hpf (0-5); TRANSITIONAL EPI CELLS, URINE <1 /hpf; URINE COLOR YELLOW (YELLW/STRAW)
[2016-08-30 08:03] LABS: COMMENT (UR) CULT NOT INDICATED; CULTURE IF INDICATED CULT NOT INDICATED
[2016-08-30 08:14] LABS: PROTHROMBIN TIME - PATIENT 11.4 SEC (9.8-11.6)
[2016-08-30 08:15] LABS: APTT (PATIENT) 25.8 SEC (24.3-30.1)
[2016-08-30] MEDS ORDERED: ACETAMINOPHEN 325 MG TAB PO ONE (08:15)
[2016-08-30 08:32] LABS: SCAN/DIFF AUTO DIFF CONFIRMED
[2016-08-30] MEDS ORDERED: IOHEXOL 350 MG/ML 10 ML VIAL (for RAD DIAG) IV ONE (08:54)
--- NOTE | 2016-08-30 09:03 | RADRPT ---
EXAM DATE/TIME: 08/30/2016 08:34 [facility] COMPARISON: CT PULMONARY ANGIOGRAM, August 11, 2016, 17:55. INDICATIONS : Fever and chest pain. IV CONTRAST: 60 cc Omnipaque 350 (iohexol) IV RADIATION DOSE: 4.93 CTDIvol (mGy) MEDICAL HISTORY : Chronic obstructive pulmonary disease. Carcinoma, breast. Pneumonia. SURGICAL HISTORY : Mastectomy, right. ENCOUNTER: Initial ACUITY: 1 day PAIN SCALE: 2/10 LOCATION: Bilateral upper chest TECHNIQUE: Volumetric scanning of the chest was performed using a pulmonary embolism protocol MIP images were re constructed. Using automated exposure control and adjustment of the mA and/or kV according to patien t size, radiation dose was kept as low as reasonably achievable to obtain optimal diagnostic quality images. FINDINGS: Eqdcqp-u-egtq is implanted in the left chest. Minimal patchy air space disease is seen in the right midlung, new from the comparison study. Similar findings are seen anteriorly in the right lower lobe and right middle lobe. There is no axillary adenopathy. There is no radiographically significant mediastinal adenopath y. There is no evidence for central pulmonary emboli. There is no pericardial effusion. CONCLUSION: 1. Patchy air space disease as described above, a minimal finding. 2. There is no central pulmonary embolus. Rasta High MD FACR on August 30, 2016 at 8:57 Board Certified Radiologist. This report was verified electronically.
--- NOTE | 2016-08-30 14:04 | PD ---
Physical Exam Date Seen by Provider: Aug 30, 2016 Time Seen by Provider: 07:00 Narrative Patient signed out to me at [address] Cross, please see further details from Dr. Cross's note. She is awaiting workup and disposition. Laboratory Tests Test 08/30/16 08/30/16 06:55 07:30 White Blood Count 11.4 TH/MM3 (4.0-11.0) Red Cell Distribution Width 18.8 % (11.6-17.2) Neutrophils (%) (Auto) 84.2 % (16.0-70.0) Lymphocytes (%) (Auto) 5.8 % (9.0-44.0) Monocytes (%) (Auto) 9.2 % (0.0-8.0) Neutrophils # (Auto) 9.6 TH/MM3 (1.8-7.7) Lymphocytes # (Auto) 0.7 TH/MM3 (1.0-4.8) Monocytes # (Auto) 1.1 TH/MM3 (0-0.9) Estimat Glomerular Filtration 77 ML/MIN (>89) Rate Random Glucose 119 MG/DL (74-106) Troponin I LESS THAN 0.02 NG/ML (0.02-0.05) Urine Turbidity CLOUDY (CLEAR) Urine Leukocyte Esterase LARGE (NEG) Urine Bacteria RARE /hpf (NONE) Last 24 hours Impressions Chest X-Ray 08/30/16 0557 Signed Impressions: Service Date/Time: Tuesday, August 30, 2016 06:34 - CONCLUSION: Negative for acute process. Rasta High MD FACR CT Angiography 08/30/16 0557 Signed Impressions: Service Date/Time: Tuesday, August 30, 2016 08:34 - CONCLUSION: 1. Patchy air space disease as described above, a minimal finding. 2. There is no central pulmonary embolus. Rasta High MD FACR CTA did not reveal any signs of PE. Chest x-ray shows patchy airspace disease, questionable for underlying bronchitis or atypical pneumonia. At this point, lab work returns showing leukocytosis although her lactate levels are not significantly elevated. She is running fevers in the ER, and somewhat disoriented on my reevaluation. She was ambulated in the ER and her saturations quickly dropped to 90% without oxygen. At this point, my plan would be to admit the patient for further treatment of shortness of breath, sepsis, pneumonia. Case was discussed with Dr. Cochran for admission. Data Data Last Documented VS Vital Signs Date Time Temp Pulse Resp B/P Pulse Ox O2 Delivery O2 Flow Rate FiO2 08/30/16 09:26 98.5 97 20 136/78 98 Room Air 08/30/16 07:32 2 Orders Complete Blood Count With Diff (08/30/16 05:57) Basic Metabolic Panel (Bmp) (08/30/16 05:57) B-Type Natriuretic Peptide (08/30/16 05:57) Act Partial Throm Time (Ptt) (08/30/16 05:57) Prothrombin Time / Inr (Pt) (08/30/16 05:57) Ckmb (Isoenzyme) Profile (08/30/16 05:57) Troponin I (08/30/16 05:57) Influenzae A/B Antigen (08/30/16 05:57) Blood Culture (08/30/16 05:57) Iv Access Insert/Monitor (08/30/16 05:57) Electrocardiogram (08/30/16 05:57) Ecg Monitoring (08/30/16 05:57) Oximetry (08/30/16 05:57) Oxygen Administration (08/30/16 05:57) Chest, Single Ap (08/30/16 05:57) Ct Pulmonary Angiogram (08/30/16 05:57) Sodium Chloride 0.9% Flush (Ns Flush) (08/30/16 06:00) Lactic Acid Sepsis Protocol (08/30/16 05:57) Sodium Chlor 0.9% 1000 Ml Inj (Ns 1000 M (08/30/16 06:15) Urinalysis - C+S If Indicated (08/30/16 07:24) Cefepime Inj (Maxipime Inj) (08/30/16 07:26) Azithromycin Inj (Zithromax Inj) (08/30/16 07:26) Acetaminophen (Tylenol) (08/30/16 08:15) Iohexol 350 Inj (Omnipaque 350 Inj) (08/30/16 08:54) Admit Order (Ed Use Only) (08/30/16 11:52) Labs Laboratory Tests Test 4/1/17 4/1/17 4/1/17 06:55 07:30 07:50 White Blood Count 11.4 TH/MM3 Red Blood Count 4.41 MIL/MM3 Hemoglobin 12.3 GM/DL Hematocrit 37.4 % Mean Corpuscular Volume 84.9 FL Mean Corpuscular Hemoglobin 27.9 PG Mean Corpuscular Hemoglobin 32.9 % Concent Red Cell Distribution Width 18.8 % Platelet Count 227 TH/MM3 Mean Platelet Volume 8.7 FL Neutrophils (%) (Auto) 84.2 % Lymphocytes (%) (Auto) 5.8 % Monocytes (%) (Auto) 9.2 % Eosinophils (%) (Auto) 0.3 % Basophils (%) (Auto) 0.5 % Neutrophils # (Auto) 9.6 TH/MM3 Lymphocytes # (Auto) 0.7 TH/MM3 Monocytes # (Auto) 1.1 TH/MM3 Eosinophils # (Auto) 0.0 TH/MM3 Basophils # (Auto) 0.1 TH/MM3 CBC Comment AUTO DIFF Differential Comment AUTO DIFF CONFIRMED Sodium Level 138 MEQ/L Potassium Level 4.2 MEQ/L Chloride Level 103 MEQ/L Carbon Dioxide Level 28.2 MEQ/L Anion Gap 7 MEQ/L Blood Urea Nitrogen 12 MG/DL Creatinine 0.75 MG/DL Estimat Glomerular Filtration 77 ML/MIN Rate Random Glucose 119 MG/DL Lactic Acid Level 1.0 mmol/L Calcium Level 9.5 MG/DL Total Creatine Kinase 61 U/L Troponin I LESS THAN 0.02 NG/ML B-Type Natriuretic Peptide 34 PG/ML Urine Color YELLOW Urine Turbidity CLOUDY Urine pH 8.0 Urine Specific [place] 1.017 Urine Protein TRACE mg/dL Urine Glucose (UA) NEG mg/dL Urine Ketones NEG mg/dL Urine Occult Blood NEG Urine Nitrite NEG Urine Bilirubin NEG Urine Urobilinogen LESS THAN 2.0 MG/DL Urine Leukocyte Esterase LARGE Urine RBC 2 /hpf Urine WBC 4 /hpf Urine Squamous Epithelial 1 /hpf Cells Urine Transitional Epithelial <1 /hpf Cells Urine Amorphous Sediment MOD Urine Bacteria RARE /hpf Microscopic Urinalysis Comment CULT NOT INDICATED Prothrombin Time 11.4 SEC Prothromb Time International 1.0 RATIO Ratio Activated Partial 25.[address] [facility] Medical Record Reviewed: Yes Supervised Visit with DYLAN: No Sepsis Criteria SIRS Criteria (2 or more): Temp > 100.9 or < 96.8, Heart rate over 90 Severe Sepsis (+one): Organ Dysfunction Diagnosis Primary Impression: Pneumonia Additional Impression: Sepsis Admitting Information Admitting Physician Requests: it Yusra Leroy MD Aug 30, 2016 14:03
[2016-08-30] MEDS ORDERED: SODIUM CHLORIDE 0.9% FLUSH 10 ML FLUSH IV FLUSH PRN (14:30)
[2016-08-30] MEDS ORDERED: SENNOSIDES 8.6 MG TAB PO PRN (14:30)
[2016-08-30] MEDS ORDERED: Vancomycin Consult Pharmacy 1 EA OTHER SCH (14:30)
[2016-08-30] MEDS ORDERED: NALOXONE HCL 0.4 MG/ML AMP IV PRN (14:30)
[2016-08-30] MEDS ORDERED: ACETAMINOPHEN 325 MG TAB PO PRN ×2 (14:30)
[2016-08-30] MEDS: DOCUSATE SODIUM 100 MG CAP PO SCH (14:52)
--- NOTE | 2016-08-30 15:11 | HHI.HP ---
HPI Service [facility] Primary Care Physician Elkin Sweeney Admission Diagnosis sepsis/shortness of breath Diagnoses: Chief Complaint: Abdominal pain Travel History International Travel<30 Days: No Contact w/Intl Traveler <30 Da: No Traveled to Known Affected Are: No History of Present Illness 66-year-old female with past medical history of HTN, HLD, breast cancer, endophthalmitis, PE who presented with a one-week history of feeling sick to her stomach. The patient states that since last Thursday she's been feeling sick to her stomach. She has some "fairly painful" abdominal discomfort. She denies any nausea, vomiting, diarrhea. Has been tolerating diet. Last BM 2 days ago. She was recently admitted for pneumonia. She states she completed a course of antibiotics and she felt better. However showing a week ago, she began having cough with yellow sputum. She denies any shortness of breath or chest pain. She denies any fevers or chills. She does report increased urinary frequency, but denies any burning with urination. She has a headache currently. She reports that she has been compliant with her home medications including Coumadin. She completed chemotherapy for breast cancer last May. The patient feels well at this time and would like to go home tomorrow. She is not sure why she was brought to the hospital. She said she was sick earlier but is unable to elaborate upon that. She says she has not followed up with pulmonology since discharge because she did not agree with diagnosis of interstitial lung disease. She denies having any fevers. Review of Systems Except as stated in HPI: all other systems reviewed are Neg Past Family Social History Past Medical History Hypertension Hyperlipidemia Endophthalmitis History of PE History of breast cancer status post chemotherapy and mastectomy Past Surgical History Right mastectomy Reported Medications Ynpptbpryk-Rcrmizglkdxba-Mhbnclfm 50-325-40 Mg Tab 1 Tab PO Q6HR PRN Vigamox Opth Drops (Moxifloxacin Opth Drops) 0.5 % Soln 1 Drop EACH EYE QID Erythromycin Opth Oint 5 Mg/Gm Oint 1 Applic EACH EYE QID Coumadin (Warfarin) 5 Mg Tab 5 Mg PO DAILY Atenolol 25 Mg Tab 25 Mg PO DAILY 30 Days Lisinopril 5 Mg Tab 5 Mg PO DAILY Atorvastatin (Atorvastatin Calcium) 40 Mg Tab 40 Mg PO HS Allergies: Coded Allergies: *MDRO Multi-Drug Resistant Organism (Unverified Adverse Reaction, Unknown , 08/30/16) Cdiff last treatment few days [employer]. + MRSA leg 07/31/14. Active Ordered Medications Current Medications Medications (Trade) Dose Ordered Sig/Rosalba Route Start Time Stop Time Status Last Admin (NS Flush) 2 ml UNSCH PRN IVF 08/30/16 06:00 (Tenormin) 25 mg DAILY PO 08/31/16 09:00 (Lipitor) 40 mg HS PO 08/30/16 21:00 Lisinopril 5 mg 5 mg DAILY PO 08/31/16 09:00 Piperacillin Sod/ Tazobactam Sod 100 ml @ 200 mls/hr Q6H IV 08/30/16 18:00 Pharmacy Profile Note 0 ml @ 0 mls/hr UNSCH OTHER 08/30/16 14:30 (Vancomycin Inj/ NS 250 ml Inj) 257.5 ml @ 257.5 mls/ hr Q12H IV 08/30/16 14:30 UNV (NS Flush) 2 ml UNSCH PRN IV FLUSH 08/30/16 14:30 (NS Flush) 2 ml BID IV FLUSH 08/30/16 21:00 (Tylenol) 650 mg Q4H PRN PO 08/30/16 14:30 (Colace) 100 mg Q12H PO 08/30/16 14:30 08/30/16 14:52 (Senokot) 17.2 mg Q12H PRN PO 08/30/16 14:30 (Tylenol) 650 mg Q6H PRN PO 08/30/16 14:30 (Roxicodone) 10 mg Q4H PRN PO 08/30/16 14:30 08/30/16 14:52 (Roxicodone) 5 mg Q4H PRN PO 08/30/16 14:30 (Narcan Inj) 0.4 mg UNSCH PRN IV 08/30/16 14:30 (Fioricet 325-50-40) 1 tab Q6HR PRN PO 08/30/16 15:00 UNV (Ilotycin 0.5% Opth Oint) 1 applic QID EACH EYE 08/30/16 18:00 UNV (Vigamox 0.5% Opht Soln) 1 drop QID EACH EYE 08/30/16 18:00 UNV (Coumadin) 5 mg DAILY PO 08/30/16 15:00 UNV Family History Patient reports her mother and father had heart attacks Social History She denies any alcohol or tobacco use Lives at home with her son Physical Exam Vital Signs Vital Signs Date Time Temp Pulse Resp B/P Pulse Ox O2 Delivery O2 Flow Rate FiO2 08/30/16 14:50 99.2 96 20 106/78 98 Room Air 08/30/16 09:26 98.5 97 20 136/78 98 Room Air 08/30/16 07:32 102.0 105 20 136/82 90 Room Air 08/30/16 07:32 20 98 Nasal Cannula 2 08/30/16 06:06 94 Room Air 08/30/16 06:05 94 Room Air 08/30/16 05:37 99.4 112 18 177/110 96 Room Air Physical Exam GENERAL: Well-developed well-nourished. In no acute distress. SKIN: Warm and dry. No lesions noted. HEENT: Normocephalic. Erythematous conjunctiva left thigh. Mucous membranes pink and moist. CARDIOVASCULAR: Regular rate and rhythm. No murmur appreciated. RESPIRATORY: No accessory muscle use. Clear to auscultation. Breath sounds equal bilaterally. GASTROINTESTINAL: Abdomen soft, non-tender, nondistended. Bowel sounds x4. MUSCULOSKELETAL: No obvious deformities. No clubbing or cyanosis. No edema. NEUROLOGICAL: Awake and alert. No focal neurological deficits. Moves upper and lower extremities spontaneously. Normal speech. PSYCHIATRIC: Appropriate mood and affect; insight and judgment fair to normal. Laboratory Laboratory Tests Test 08/30/16 08/30/16 08/30/16 06:55 07:30 07:50 White Blood Count 11.4 Red Blood Count 4.41 Hemoglobin 12.3 Hematocrit 37.4 Mean Corpuscular Volume 84.9 Mean Corpuscular Hemoglobin 27.9 Mean Corpuscular Hemoglobin 32.9 Concent Red Cell Distribution Width 18.8 Platelet Count 227 Mean Platelet Volume 8.7 Neutrophils (%) (Auto) 84.2 Lymphocytes (%) (Auto) 5.8 Monocytes (%) (Auto) 9.2 Eosinophils (%) (Auto) 0.3 Basophils (%) (Auto) 0.5 Neutrophils # (Auto) 9.6 Lymphocytes # (Auto) 0.7 Monocytes # (Auto) 1.1 Eosinophils # (Auto) 0.0 Basophils # (Auto) 0.1 CBC Comment AUTO DIFF Differential Comment AUTO DIFF CONFIRMED Sodium Level 138 Potassium Level 4.2 Chloride Level 103 Carbon Dioxide Level 28.2 Anion Gap 7 Blood Urea Nitrogen 12 Creatinine 0.75 Estimat Glomerular Filtration 77 Rate Random Glucose 119 Lactic Acid Level 1.0 Calcium Level 9.5 Total Creatine Kinase 61 Troponin I LESS THAN 0.02 B-Type Natriuretic Peptide 34 Urine Color YELLOW Urine Turbidity CLOUDY Urine pH 8.0 Urine Specific [place] 1.017 Urine Protein TRACE Urine Glucose (UA) NEG Urine Ketones NEG Urine Occult Blood NEG Urine Nitrite NEG Urine Bilirubin NEG Urine Urobilinogen LESS THAN 2.0 Urine Leukocyte Esterase LARGE Urine RBC 2 Urine WBC 4 Urine Squamous Epithelial 1 Cells Urine Transitional Epithelial <1 Cells Urine Amorphous Sediment MOD Urine Bacteria RARE Microscopic Urinalysis Comment CULT NOT INDICATED Prothrombin Time 11.4 Prothromb Time International 1.0 Ratio Activated Partial 25.8 Thromboplast Time Date/Time Procedure Status Source Growth 08/30/16 07:00 Aerobic Blood Culture Received Blood Peripheral Pending 08/30/16 07:00 Anaerobic Blood Culture Received Blood Peripheral Pending 08/30/16 06:55 Influenza Types A,B Antigen (JANNETTE) - Final Complete Nasal Aspirate NEGATIVE FOR FLU A AND B ANTIGEN.... 08/30/16 05:57 Influenza Types A,B Antigen (JANNETTE) Received Nasal Aspirate Pending Result Diagram: 08/30/1655 08/30/16654 Imaging Last Impressions Chest X-Ray 08/30/16556 Signed Impressions: Service Date/Time: Tuesday, August 30, 2016 06:34 - CONCLUSION: Negative for acute process. Rasta High MD FACR CT Angiography 08/30/16556 Signed Impressions: Service Date/Time: Tuesday, August 30, 2016 08:34 - CONCLUSION: 1. Patchy air space disease as described above, a minimal finding. 2. There is no central pulmonary embolus. Rasta High MD FACR Assessment and Plan Assessment and Plan 66-year-old female with past medical history of HTN, HLD, breast cancer, endophthalmitis, PE who presented with a one-week history of feeling sick to her stomach and cough SIRS: Tmax 102. Tachycardia. WBC 11.4 with neutrophil predominance. Chest x- ray with no signs of infection. UA clear. Influenza negative. Unclear source. Abdominal workup as below. Blood cultures pending. Started on IV vancomycin and Zosyn. CT with persistent evidence of airspace disease. Consider infectious disease consult. Follow culture results. Continue antibiotics. Abdominal pain: Mild. No nausea, vomiting, diarrhea. Check LFTs, lipase, KUB. Supportive care. Seems resolved. Bronchitis/atypical pneumonia: Chest x-ray was negative for any acute process. Pulmonary angiogram shows minimal finding of patchy airspace disease. Check urinary antigens and sputum culture. Guaifenesin. Per recent pulmonology consult if airspace disease persisted more than 4-6 weeks would recommend PET scan or biopsy as the patient has a history of breast cancer. Endophthalmitis: Currently on 2 antibiotic eyedrops, will continue. History of PE on anticoagulation: Patient reports compliance with Coumadin, however INR is 1.0, noncompliant? Resume Coumadin and consult pharmacy for dose assistance. No pulmonary embolism noted on CT. HTN/HLD: Continue lisinopril, atenolol, atorvastatin. DVT prophylaxis: Warfarin, SCDs Discussed Condition With Patient with ED RN at bedside, Dr. Elliott Attending Statement The exam, history, and the medical decision-making described in the above note were completed with the assistance of the mid-level provider. I reviewed and agree with the findings presented. I attest that I had a [id number] encounter with the patient on the same day, and personally performed and documented my assessment and findings in the medical record. Jb Aleman Aug 30, 2016 15:11 Evans Elliott DO Aug 30, 2016 17:16
[2016-08-30] MEDS ORDERED: PERC5TAB12 PO (15:32)
--- NOTE | 2016-08-30 15:47 | RADRPT ---
EXAM DATE/TIME: 08/30/2016 15:33 [place] COMPARISON: No previous studies available for comparison. INDICATIONS : Abdominal pain. MEDICAL HISTORY : Chronic obstructive pulmonary disease. Carcinoma, breast. Pneumonia. SURGICAL HISTORY : Mastectomy, right. ENCOUNTER: Initial ACUITY: 1 day PAIN SCORE: 2/10 LOCATION: Abdomen. FINDINGS: Supine view of the abdomen was performed. The abdominal bowel gas pattern is normal. No abnormal ma sses, calcifications, or organomegaly is seen. Moderate degenerative changes in the posterior elemen ts of L5-S1.. CONCLUSION: No dilated loops of small or large bowel. Armen Tesfaye MD on August 30, 2016 at 15:45 Board Certified Radiologist. This report was verified electronically.
[2016-08-30] MEDS ORDERED: WARFARIN SOD 5 MG TAB PO SCH (16:00)
[2016-08-30 16:22] LABS: INDIRECT BILIRUBIN 0.6 MG/DL (0.0-0.8); TOTAL BILIRUBIN ADULT 0.7 MG/DL (0.2-1.0)
[2016-08-30] MEDS: ERYTHROMYCIN 0.5% OPTH OINT 1 GM TUBO EACH EYE SCH ×2 (17:47→22:35)
[2016-08-30] MEDS: guaiFENesin E.R. 600 MG TAB PO SCH ×2 (17:47→22:35)
[2016-08-30] MEDS: MOXIFLOXACIN 0.5% OPHT SOLN 3 ML BTL EACH EYE SCH ×2 (17:47→22:35)
[2016-08-30] MEDS: PIPERACIL-TAZO 4.5 GM PREMIX 100 ML IV SCH (17:48)
[2016-08-30] MEDS ORDERED: ERYTHROMYCIN 0.5% OPTH OINT 3.5 GM TUBO EACH EYE SCH (18:00)
[2016-08-30] MEDS: ACETAMIN 325 MG/BUTALBITAL 50 MG/CAFFEINE 40 MG TAB PO PRN (18:04)
[2016-08-30] MEDS: VANCOMYCIN INJ 750 MG in SODIUM CHLOR 0.9% 250 ML INJ 250 ML IV SCH (18:10)
[2016-08-30] MEDS: ATORVASTATIN 40 MG TAB PO SCH (22:35)
[2016-08-30] MEDS: SODIUM CHLORIDE 0.9% FLUSH 10 ML FLUSH IV FLUSH SCH (22:39)
[2016-08-31] VITALS (10 sets, daily range): BP systolic 106–146; BP diastolic 62–95; PULSE 76–105; RESP 18–19; TEMP 97.9–98.5; O2SAT 93–96
--- NOTE | 2016-08-31 00:12 | EKG ---
Date Performed: 08/30/2016 Time Performed: 06:23:49 PTAGE: 66 years EKG: SINUS TACHYCARDIA ABNORMAL RHYTHM ECG PREVIOUS TRACING : 08/11/2016 14.29 DOCTOR: Heidi Ghotra Interpretating Date/Time 08/31/2016 00:10:02
[2016-08-31] MEDS: PIPERACIL-TAZO 4.5 GM PREMIX 100 ML IV SCH ×4 (00:18→16:43)
[2016-08-31] MEDS: DOCUSATE SODIUM 100 MG CAP PO SCH ×2 (02:42→11:49)
[2016-08-31] MEDS: VANCOMYCIN INJ 750 MG in SODIUM CHLOR 0.9% 250 ML INJ 250 ML IV SCH ×2 (04:38→16:42)
[2016-08-31 08:01] LABS: AUTOMATED NEUTROPHIL # 5.8 TH/MM3 (1.8-7.7); BASOPHIL % 0.4 % (0.0-2.0); EOSINOPHIL # 0.2 TH/MM3 (0-0.4); HEMATOCRIT 34.2 % (35.0-46.0); HEMO FLAGS DIFF FINAL; LYMPH % 11.3 % (9.0-44.0); LYMPHOCYTE # 0.9 TH/MM3 (1.0-4.8); MEAN CELL VOLUME 87.2 FL (80.0-100.0); MEAN CORPUSCULAR HEMOGLOBIN 28.2 PG (27.0-34.0); MEAN CORPUSCULAR HGB CONC 32.4 % (32.0-36.0); MONO % 13.8 % (0.0-8.0); NEUT % 71.5 % (16.0-70.0); PLATELET COUNT 161 TH/MM3 (150-450); RED BLOOD COUNT 3.92 MIL/MM3 (4.00-5.30); RED CELL DISTRIBUTION WIDTH 19.5 % (11.6-17.2); WHITE BLOOD COUNT 8.1 TH/MM3 (4.0-11.0)
[2016-08-31 08:04] LABS: PROTHROMBIN TIME - PATIENT 11.5 SEC (9.8-11.6)
[2016-08-31 08:25] LABS: BICARBONATE 26.3 MEQ/L (21.0-32.0); POTASSIUM 3.6 MEQ/L (3.5-5.1)
[2016-08-31] MEDS: ATENOLOL 25 MG TAB PO SCH (08:40)
[2016-08-31] MEDS: guaiFENesin E.R. 600 MG TAB PO SCH (08:40)
[2016-08-31] MEDS: MOXIFLOXACIN 0.5% OPHT SOLN 3 ML BTL EACH EYE SCH ×4 (08:40→20:16)
[2016-08-31] MEDS: SODIUM CHLORIDE 0.9% FLUSH 10 ML FLUSH IV FLUSH SCH ×2 (08:40→20:17)
[2016-08-31] MEDS: ERYTHROMYCIN 0.5% OPTH OINT 1 GM TUBO EACH EYE SCH ×4 (08:40→20:16)
[2016-08-31] MEDS: LISINOPRIL 5 MG TAB PO SCH (08:40)
[2016-08-31] MEDS ORDERED: RESP: ALBUTEROL 2.5 MG/IPRATROPIUM 0.5 MG NEB (SCH) NEB ONE (12:00)
--- NOTE | 2016-08-31 12:01 | HHI.PR ---
Subjective Remarks The patient was complaining of a cough. She had persistent hoarseness of her voice. She has not been coughing up any mucus. Otherwise she feels well. Discussed with nursing. Objective Vitals Vital Signs Date Time Temp Pulse Resp B/P Pulse Ox O2 Delivery O2 Flow Rate FiO2 08/31/16 08:24 98.3 105 18 146/95 94 08/31/16 04:00 98.0 78 19 132/68 94 08/31/16 00:00 98.5 80 19 115/64 93 08/30/16 22:35 Nasal Cannula 2.00 08/30/16 20:01 80 08/30/16 20:00 99.0 87 19 113/72 99 08/30/16 16:23 99.9 93 18 123/75 94 08/30/16 14:50 99.2 96 20 106/78 98 Room Air I/O 08/30/16 08/30/16 08/30/16 08/31/16 08/31/16 08/31/16 07:00 15:00 23:00 07:00 15:00 23:00 Intake Total 300 ml 280 ml 495 ml Output Total 350 ml Balance 300 ml -70 ml 495 ml Intake Oral 300 ml 280 ml 120 ml IV Total 375 ml Output Urine Total 350 ml # Voids 9 2 # Bowel Movements 0 0 Result Diagram: 08/31/1604 08/31/16 0704 Imaging Last Impressions Chest X-Ray 08/30/1657 Signed Impressions: Service Date/Time: Tuesday, August 30, 2016 06:34 - CONCLUSION: Negative for acute process. Rasta High MD FACR CT Angiography 08/30/16 0557 Signed Impressions: Service Date/Time: Tuesday, August 30, 2016 08:34 - CONCLUSION: 1. Patchy air space disease as described above, a minimal finding. 2. There is no central pulmonary embolus. Rasta High MD FACR Abdomen X-Ray 08/30/16 0000 Signed Impressions: Service Date/Time: Tuesday, August 30, 2016 15:33 - CONCLUSION: No dilated loops of small or large bowel. Armen Tesfaye MD Objective Remarks GENERAL: Well-developed well-nourished. In no acute distress. Hoarse voice. SKIN: Warm and dry. No lesions noted. HEENT: Normocephalic. Erythematous conjunctiva left thigh. Mucous membranes pink and moist. CARDIOVASCULAR: Regular rate and rhythm. No murmur appreciated. RESPIRATORY: No accessory muscle use. Diffuse wheezing and crackles. GASTROINTESTINAL: Abdomen soft, non-tender, nondistended. Bowel sounds x4. MUSCULOSKELETAL: No obvious deformities. No clubbing or cyanosis. No edema. NEUROLOGICAL: Awake and alert. No focal neurological deficits. Moves upper and lower extremities spontaneously. PSYCHIATRIC: Appropriate mood and affect; insight and judgment fair to normal. Medications and IVs Current Medications Medications (Trade) Dose Ordered Sig/Rosalba Route Start Time Stop Time Status Last Admin (NS Flush) 2 ml UNSCH PRN IVF 08/30/16 06:00 (Tenormin) 25 mg DAILY PO 08/31/16 09:00 08/31/16 08:40 (Lipitor) 40 mg HS PO 08/30/16 21:00 08/30/16 22:35 Lisinopril 5 mg 5 mg DAILY PO 08/31/16 09:00 08/31/16 08:40 Piperacillin Sod/ Tazobactam Sod 100 ml @ 200 mls/hr Q6H IV 08/30/16 18:00 08/31/16 11:49 Pharmacy Profile Note 0 ml @ 0 mls/hr UNSCH OTHER 08/30/16 14:30 (Vancomycin Inj/ NS 250 ml Inj) 257.5 ml @ 257.5 mls/ hr Q12H IV 08/30/16 16:00 08/31/16 04:38 (NS Flush) 2 ml UNSCH PRN IV FLUSH 08/30/16 14:30 (NS Flush) 2 ml BID IV FLUSH 08/30/16 21:00 08/31/16 08:40 (Tylenol) 650 mg Q4H PRN PO 08/30/16 14:30 (Colace) 100 mg Q12H PO 08/30/16 14:30 08/31/16 11:49 (Senokot) 17.2 mg Q12H PRN PO 08/30/16 14:30 (Tylenol) 650 mg Q6H PRN PO 08/30/16 14:30 (Roxicodone) 10 mg Q4H PRN PO 08/30/16 14:30 08/31/16 11:49 (Roxicodone) 5 mg Q4H PRN PO 08/30/16 14:30 (Narcan Inj) 0.4 mg UNSCH PRN IV 08/30/16 14:30 (Fioricet 325-50-40) 1 tab Q6HR PRN PO 08/30/16 15:00 08/30/16 18:04 Moxifloxacin HCl 1 drop 1 drop QID EACH EYE 08/30/16 18:00 08/31/16 11:49 (Coumadin Consult Pharmacy) 0 ml @ 0 mls/hr UNSCH OTHER 08/30/16 15:15 (Mucinex Er) 600 mg BID PO 08/30/16 16:00 08/31/16 08:40 Miscellaneous Information SPECIFIC LAB TO BE DRAWN:[facility]... ONCE ONCE .XX 09/01/16 03:45 09/01/16 03:46 (Erythromycin 0.5% Opth Oint) 1 APPLICATION EACH ... QID EACH EYE 08/30/16 18:00 08/31/16 11:49 (Coumadin) 6 mg DAILY@16 PO 08/31/16 16:00 (Protonix) 40 mg DAILY PO 08/31/16 12:00 UNV A/P Assessment and Plan 66-year-old female with past medical history of HTN, HLD, breast cancer, endophthalmitis, PE who presented with a one-week history of feeling sick to her stomach and cough SIRS Tmax 102. Tachycardia. WBC 11.[address] with airspace disease. UA clear. Influenza negative. Blood cultures pending. Started on IV vancomycin and Zosyn. CT with persistent evidence of airspace disease. - Follow culture results. - Continue antibiotics. Bronchitis/atypical pneumonia: Chest x-ray was negative for any acute process. Pulmonary angiogram shows minimal finding of patchy airspace disease. Per recent pulmonology consult if airspace disease persisted more than 4-6 weeks would recommend PET scan or biopsy as the patient has a history of breast cancer. - Continue vancomycin and Zosyn. - Start standing duo nebs and Solu-Medrol. - Consult pulmonology. - Oxygen as needed. - Incentive spirometry. Endophthalmitis Currently on 2 antibiotic eyedrops. - will continue home regimen. History of PE on anticoagulation Patient reports compliance with Coumadin, however INR is 1.0? No pulmonary embolism noted on CT. - Continue Coumadin for now and clarify if patient is actually on Coumadin. DVT prophylaxis: Warfarin, SCDs Discharge Planning Awaiting clinical improvement. Evans Elliott DO Aug 31, 2016 12:01
[2016-08-31] MEDS: PANTOPRAZOLE SOD 40 MG DELAYED RELEASE TAB PO SCH (12:19)
[2016-08-31] MEDS: methylPREDNISolone SOD SUCC 40 MG/1 ML VIAL IV PUSH SCH ×2 (12:20→22:16)
[2016-08-31] MEDS: RESP: ALBUTEROL 2.5 MG/IPRATROPIUM 0.5 MG NEB (SCH) NEB ×2 (12:31→19:25)
[2016-08-31] MEDS: guaiFENesin/CODEINE SYRUP 200 MG/20 MG/10 ML CUP PO PRN ×2 (12:44→22:16)
[2016-08-31] MEDS ORDERED: WARFARIN SOD 6 MG TAB PO SCH (16:00)
[2016-08-31] MEDS: ATORVASTATIN 40 MG TAB PO SCH (20:17)
[2016-08-31] MEDS: ACETAMIN 325 MG/BUTALBITAL 50 MG/CAFFEINE 40 MG TAB PO PRN (20:47)
[2016-09-01] VITALS: BP 102/57; PULSE 70; RESP 19; TEMP 98; O2SAT 96
[2016-09-01] MEDS: PIPERACIL-TAZO 4.5 GM PREMIX 100 ML IV SCH ×2 (00:19→05:11)
[2016-09-01] MEDS: DOCUSATE SODIUM 100 MG CAP PO SCH (02:34)
[2016-09-01] MEDS ORDERED: PHARMACY ORDERED LAB ONE (03:45)
[2016-09-01] MEDS: VANCOMYCIN INJ 750 MG in SODIUM CHLOR 0.9% 250 ML INJ 250 ML IV SCH (03:51)
[2016-09-01 04:00] VITALS: BP 114/66; PULSE 74; RESP 18; TEMP 97.7; O2SAT 96
[2016-09-01] MEDS: methylPREDNISolone SOD SUCC 40 MG/1 ML VIAL IV PUSH SCH (05:10)
[2016-09-01] MEDS: guaiFENesin/CODEINE SYRUP 200 MG/20 MG/10 ML CUP PO PRN (05:52)
[2016-09-01 07:33] VITALS: O2SAT 96
[2016-09-01] MEDS: RESP: ALBUTEROL 2.5 MG/IPRATROPIUM 0.5 MG NEB (SCH) NEB ×2 (07:33→13:36)
[2016-09-01 07:42] LABS: INTERNATIONAL NORMALIZED RATIO 1.1 RATIO; PROTHROMBIN TIME - PATIENT 11.7 SEC (9.8-11.6)
[2016-09-01 08:00] VITALS: PULSE 102
[2016-09-01] MEDS: LISINOPRIL 5 MG TAB PO SCH (09:08)
[2016-09-01] MEDS: ATENOLOL 25 MG TAB PO SCH (09:08)
[2016-09-01] MEDS: PANTOPRAZOLE SOD 40 MG DELAYED RELEASE TAB PO SCH (09:08)
[2016-09-01] MEDS: SODIUM CHLORIDE 0.9% FLUSH 10 ML FLUSH IV FLUSH SCH (09:09)
[2016-09-01] MEDS: MOXIFLOXACIN 0.5% OPHT SOLN 3 ML BTL EACH EYE SCH (09:10)
[2016-09-01] MEDS: ERYTHROMYCIN 0.5% OPTH OINT 1 GM TUBO EACH EYE SCH (09:11)
--- NOTE | 2016-09-01 10:18 | MB ---
cc: JI WORMKAN M.D. DATE OF CONSULTATION 08/31/2016 REASON FOR CONSULTATION Pneumonia. HISTORY OF PRESENT ILLNESS Mrs. Foster is a 66-year-old female who presents to the emergency room with abdominal discomfort, "feels sick her stomach." The patient has known history of breast cancer for which she is followed by Oncology, hypertension. The patient had a CT angiogram with no evidence of pulmonary emboli. She does have history of pulmonary emboli in the past. However, she did have some minor patchy infiltrates and she did have a temperature elevation as an outpatient and has been given antibiotic therapy with improvement. She does have a cough, small amount of yellowish sputum. Denies history of hemoptysis, TB or previous industrial exposure. She had not received chemotherapy since May of 2016. PAST MEDICAL HISTORY 1. Breast cancer. 2. Hypertension. 3. Pulmonary embolism. 4. Hyperlipidemia MEDICATIONS AT HOME 1. Vigamox. 2. Butalbutol. 3. Erythromycin. 4. Coumadin. 5. Atenolol. 6. Lisinopril. 7. Atorvastatin. ALLERGIES None known to medications. FAMILY HISTORY Noncontributory. SOCIAL HISTORY Does not smoke or drink. REVIEW OF SYSTEMS A 12-point review of systems as per HPI and Past History otherwise negative. PHYSICAL EXAMINATION GENERAL: The patient is alert. VITAL SIGNS: Temperature max 102 degrees Fahrenheit, presently at 99. Oxygen saturation 98% on room air. HEENT: Exam unremarkable. Eyes without icterus. NECK: Without adenopathy. Thyroid enlargement. Central trachea. CHEST: Without dullness to percussion, clear to auscultation. CARDIAC EXAM: PMI distant. S1-S2 audible. No murmur or rub. ABDOMEN: Lax, audible bowel sounds. EXTREMITIES: No clubbing, cyanosis or edema. SKIN: Normal. No lymphadenopathy. LABORATORY DATA White count 11,000, hemoglobin 12, hematocrit 37, platelets at 227,000. Sodium 138, potassium 4.2, BUN 12, creatinine 0.7. CT HEAD CT angiogram - No pulmonary emboli. Patchy airway disease of minimal degree. IMPRESSION 1. Question pneumonia. 2. History of breast cancer. 3. Hypertension. 4. Hyperlipidemia. 5. History of pulmonary embolism. PLAN The patient is admitted to the hospital. Antibiotic has been initiated on empiric basis. Because of the patient's temperature elevation and indeed maybe pneumonia which has responded to outpatient therapy, the findings on CT are minimal as discussed above. We will follow her course along with you. The patient has never smoked, do not believe there is any underlying evidence of lung disease. However, we will check baseline pulmonary function. I do thank you for asking me to partake in Mrs. Foster's care. Sincerely Ji Workman MD WWW/ARIES /6:57 PM /10:01 AM
[2016-09-01] MEDS ORDERED: GUAI100S5 PO (11:56)
[2016-09-01] MEDS ORDERED: PRED20 PO (11:56)
[2016-09-01] MEDS ORDERED: PERC5TAB12 PO (11:56)
[2016-09-01] MEDS ORDERED: DOXY100C PO (11:56)
[2016-09-01] MEDS ORDERED: PANT40TA3 PO (11:56)
[2016-09-01] MEDS ORDERED: VANCOMYCIN 1,000 MG/NS 250 ML IV SCH ×2 (12:00)
--- NOTE | 2016-09-01 12:01 | HHI.DCPOC ---
Discharge Care Plan Diagnosis: (1) Pneumonia (2) Conjunctival injection (3) Laryngitis (4) Cough Goals to Promote Your Health * To prevent worsening of your condition and complications * To maintain your health at the optimal level Directions to Meet Your Goals Take your medications as prescribed Follow your dietary instruction Follow activity as directed Keep your appointments as scheduled Take your immunizations and boosters as scheduled If your symptoms worsen call your PCP, if no PCP go to Urgent Care Center or Emergency Room Smoking is Dangerous to Your Health. Avoid second hand smoke Call the 24-hour hour crisis hotline for domestic abuse at Evans Elliott DO Sep 01, 2016 12:01
[2016-09-01] MEDS: ACETAMIN 325 MG/BUTALBITAL 50 MG/CAFFEINE 40 MG TAB PO PRN (12:45)
--- NOTE | 2016-09-01 12:47 | HHI.FF ---
Face to Face Verification Diagnosis: (1) Conjunctival injection (2) Pneumonia (3) Laryngitis (4) Cough (5) Sepsis Physical Therapy Order: Evaluate and Treat, Improve ambulation, Strength and gait training Home Health Nursing Order: Medical education Signs/symptoms of disease process Medication education-adverse effect Nursing assessment with vital signs I have seen patient Magalie S Day on 09/01/16. My clinical findings support the need for the requested home health care services because: Patient has SOB Deconditioned w/ increased weakness Limited ability to care for self Need for psychosocial assistance High risk of falls I certify that my clinical findings support that this patient is homebound because: Impaired cognitive ability/safety Unsteady gait/balance Unsafe to leave home unassisted Need for psychosocial assistance Evans Elliott DO Sep 01, 2016 12:47
--- NOTE | 2016-09-01 12:52 | HHI.DS ---
Discharge Summary Admission Date Aug 30, 2016 at 11:54 Discharge Date: Sep 01, 2016 Admitting Diagnosis sepsis/shortness of breath (1) Conjunctival injection ICD Code: H11.439 (2) Pneumonia ICD Code: J18.9 Diagnosis: Principal (3) Laryngitis ICD Code: J04.0 (4) Cough ICD Code: R05 Diagnosis: Principal Procedures None. Brief History - From Admission 66-year-old female with past medical history of HTN, HLD, breast cancer, endophthalmitis, PE who presented with a one-week history of feeling sick to her stomach. The patient states that since last Thursday she's been feeling sick to her stomach. She has some "fairly painful" abdominal discomfort. She denies any nausea, vomiting, diarrhea. Has been tolerating diet. Last BM 2 days ago. She was recently admitted for pneumonia. She states she completed a course of antibiotics and she felt better. However showing a week ago, she began having cough with yellow sputum. She denies any shortness of breath or chest pain. She denies any fevers or chills. She does report increased urinary frequency, but denies any burning with urination. She has a headache currently. She reports that she has been compliant with her home medications including Coumadin. She completed chemotherapy for breast cancer last May. The patient feels well at this time and would like to go home tomorrow. She is not sure why she was brought to the hospital. She said she was sick earlier but is unable to elaborate upon that. She says she has not followed up with pulmonology since discharge because she did not agree with diagnosis of interstitial lung disease. She denies having any fevers. CBC/BMP: 08/31/16 0704 08/31/16 0704 Significant Findings Laboratory Tests Test 08/30/16 08/30/16 08/31/16 09/01/16 06:55 07:30 07:04 06:20 White Blood Count 11.4 TH/MM3 (4.0-11.0) Red Cell Distribution Width 18.8 % 19.5 % (11.6-17.2) (11.6-17.2) Neutrophils (%) (Auto) 84.2 % 71.5 % (16.0-70.0) (16.0-70.0) Lymphocytes (%) (Auto) 5.8 % (9.0-44.0) Monocytes (%) (Auto) 9.2 % (0.0-8.0) 13.8 % (0.0-8.0) Neutrophils # (Auto) 9.6 TH/MM3 (1.8-7.7) Lymphocytes # (Auto) 0.7 TH/MM3 0.9 TH/MM3 (1.0-4.8) (1.0-4.8) Monocytes # (Auto) 1.1 TH/MM3 1.1 TH/MM3 (0-0.9) (0-0.9) Estimat Glomerular Filtration 77 ML/MIN (>89) Rate Random Glucose 119 MG/DL (74-106) Troponin I LESS THAN 0.02 NG/ML (0.02-0.05) Albumin 3.3 GM/DL (3.4-5.0) Urine Turbidity CLOUDY (CLEAR) Urine Leukocyte Esterase LARGE (NEG) Urine Bacteria RARE /hpf (NONE) Red Blood Count 3.92 MIL/MM3 (4.00-5.30) Hemoglobin 11.1 GM/DL (11.6-15.3) Hematocrit 34.2 % (35.0-46.0) Prothrombin Time 11.7 SEC (9.8-11.6) Imaging Last Impressions Chest X-Ray 08/30/1657 Signed Impressions: Service Date/Time: Tuesday, August 30, 2016 06:34 - CONCLUSION: Negative for acute process. Rasta High MD FACR CT Angiography 08/30/16 0557 Signed Impressions: Service Date/Time: Tuesday, August 30, 2016 08:34 - CONCLUSION: 1. Patchy air space disease as described above, a minimal finding. 2. There is no central pulmonary embolus. Rasta High MD FACR Abdomen X-Ray 08/30/16 0000 Signed Impressions: Service Date/Time: Tuesday, August 30, 2016 15:33 - CONCLUSION: No dilated loops of small or large bowel. Armen Tesfaye MD PE at Discharge GENERAL: Well-developed well-nourished. In no acute distress. SKIN: Warm and dry. No lesions noted. HEENT: Normocephalic. Erythematous conjunctiva left thigh. Mucous membranes pink and moist. CARDIOVASCULAR: Regular rate and rhythm. No murmur appreciated. RESPIRATORY: No accessory muscle use. CTAB. GASTROINTESTINAL: Abdomen soft, non-tender, nondistended. Bowel sounds x4. MUSCULOSKELETAL: No obvious deformities. No clubbing or cyanosis. No edema. NEUROLOGICAL: Awake and alert. No focal neurological deficits. Moves upper and lower extremities spontaneously. Normal voice. PSYCHIATRIC: Appropriate mood and affect; insight and judgment fair to normal. Pt update on day of discharge The pt was feeling well and wanted to go home. No acute complaints. Discussed with nursing and case management. Hospital Course 66-year-old female with past medical history of HTN, HLD, breast cancer, endophthalmitis, PE who presented with a one-week history of feeling sick to her stomach and cough. Bronchitis/atypical pneumonia Chest x-ray was negative for any acute process. Pulmonary angiogram shows minimal finding of patchy airspace disease. Tmax 102. Tachycardia. WBC 11.[address] with airspace disease. UA clear. Influenza negative. Blood cultures NGTD. Started on IV vancomycin and Zosyn. Pulmonology was consulted. She was continued om vancomycin and Zosyn. She will complete a course of doxycycline. She was started on standing duo nebs and Solu-Medrol. She will be discharged on a prednisone taper. She received incentive spirometry. She will follow up with pulmonology as an outpt. Endophthalmitis Currently on 2 antibiotic eyedrops. She was continued on her home regimen. History of PE on anticoagulation Patient reports compliance with Coumadin, however INR was 1. No pulmonary embolism noted on CT. The pt will follow-up with her PCP in regards to continuing Coumadin or not. Pt Condition on Discharge: Good Discharge Disposition: Disch w/ Home Health Serv Discharge Time: > 30 minutes Discharge Instructions DIET: Follow Instructions for: Heart Healthy Diet Activities you can perform: Weight Bearing as Vilma Follow up Referrals: Oncology - 1 Week PCP Follow-up - 1 Week Pulmonology - 1 Week with Ji Workman MD SNF/[facility]/ with [facility] New Orders: PT/INR - 3-5 Days New Medications: Doxycycline Hyclate (Doxycycline Hyclate) 100 Mg Cap 100 MG PO BID Infection #10 Ref 0 CAP Prednisone (Prednisone) 20 Mg Tab 20 MG PO DAILY Breathing #5 Ref 0 TAB Guaifenesin-Codeine Liq (Guaifenesin-Codeine Liq) 100-10 Mg/5 Ml Soln 10 ML PO Q6H PRN cough #1 BOTTLE Pantoprazole (Pantoprazole) 40 Mg Tab 40 MG PO DAILY Reflux #30 TAB Continued Medications: Atenolol (Atenolol) 25 Mg Tab 25 MG PO DAILY hypertension Days 30 Ref 0 TAB Atorvastatin (Atorvastatin) 40 Mg Tab 40 MG PO HS Cholesterol Management #30 Ref 0 TAB Dhzhhoqmnv-Lxmjqqzhfezlc-Znarcvgn (Ltraupbksi-Rcqmebxzyczbi-Puiesvun) 50-325-40 Mg Tab 1 TAB PO Q6HR PRN HEADACHE #12 TAB Erythromycin Opth Oint (Erythromycin Opth Oint) 5 Mg/Gm Oint 1 APPLIC EACH EYE QID Infection #1 Ref 0 TUBE Lisinopril (Lisinopril) 5 Mg Tab 5 MG PO DAILY Blood Pressure Management #30 Ref 0 TAB Moxifloxacin Opth Drops (Vigamox Opth Drops) 0.5 % Soln 1 DROP EACH EYE QID Infection #1 Ref 0 BOTTLE Oxycodone-Acetaminophen (Percocet) 5-325 mg Tab 1 TAB PO Q6H PRN PAIN #12 Ref 0 TAB (This prescription has been renewed) Warfarin (Coumadin) 5 Mg Tab 5 MG PO DAILY Blood Clot Prevention #30 Ref 0 TAB Discontinued Medications: Amoxicillin-Clavulanate (Augmentin) 875-125 mg Tab 875 MG PO BID not for use in CrCl <30 ml/min. Infection #24 Ref 0 TAB Evans Elliott DO Sep 01, 2016 12:52
[2016-09-02] MEDS ORDERED: PHARMACY ORDERED LAB ONE (23:45)
== END 2016-09-01 14:41 | disposition home health service (06) | DRG 871 ==
LOC: NEPE 05:32 → NEDA 11:54 → N04A 15:57
PROVIDERS: ADMIT Hospitalist; ATTEND Hospitalist
DX: A41.9 Sepsis, unspecified organism (principal); J18.9 Pneumonia, unspecified organism; J44.0 Chronic obstructive pulmonary disease with (acute) lower respiratory infection; E78.5 Hyperlipidemia, unspecified; I10 Essential (primary) hypertension; Z85.3 Personal history of malignant neoplasm of breast; K21.9 Gastro-esophageal reflux disease without esophagitis; Z79.01 Long term (current) use of anticoagulants; Z86.711 Personal history of pulmonary embolism; Z90.10 Acquired absence of unspecified breast and nipple; Z92.21 Personal history of antineoplastic chemotherapy
CPT/HCPCS: 71010; 71275; 74000; 80048; 80076; 80202; 81001; 82550; 83605; 83690; 83880; 84484; 85025; 85610; 85730; 87040; 87449; 87641; 87804; 93005; 94150; 94640; 94664; 96365; 96367; J0456; J0692; J2543; J2920; J3370; J7030; J7050; Q9967

== ENCOUNTER 2016-09-11 14:00 | Emergency (ER) | payer MEDICARE, OTHER ==
[~2016-09-11] VITALS: Ht 167.6 cm; Wt 50.0 kg
[~2016-09-11 14:00] MED LIST changes: -AUGM875T PO; -CODE30TA PO; +DOXY100C PO; +GUAI100S5 PO; +PANT40TA3 PO; +PERC5TAB12 PO; +PRED20 PO; -[UNRECOGNIZED DRUG - CODE] LEFT EYE
[2016-09-11 14:02] VITALS: BP 159/90; PULSE 68; RESP 16; TEMP 98.2; O2SAT 95
--- NOTE | 2016-09-11 14:10 | PD ---
Physical Exam Time Seen by Provider: 14:08 Narrative 66 yo F c/o "being kind a sick today." Report "fuzziness," dizziness, abd pain. Denies N/V/D. Denies fever. VSS Seen in triage, awaiting bed placement. Data Data Last Documented VS Vital Signs Date Time Temp Pulse Resp B/P Pulse Ox O2 Delivery O2 Flow Rate FiO2 09/11/16 14:02 98.2 68 16 159/90 95 Room Air MDM Supervised Visit with DYLAN: Jennifer Meyers Sep 11, 2016 14:10
--- NOTE | 2016-09-11 15:42 | PD ---
HPI Chief Complaint: Abdominal Pain Time Seen by Provider: 15:30 Travel History International Travel<30 days: No Contact w/Intl Traveler<30days: No Traveled to known affect area: No History of Present Illness HPI Patient is a 66-year-old female presented to the emergency department because she feels sort of sick. Patient states that she felt nauseated in the middle the night last night, she reports feeling better today but still feels a little weak. She has had no fever, chills, vomiting, diarrhea, abdominal pain, chest pain or shortness of breath. Patient has been tolerating food and fluids. PFSH Past Medical History Asthma: No Blood Disorders: No Anxiety: No Depression: No Heart Rhythm Problems: No Cancer: Yes (R BREAST CA ) Cardiovascular Problems: Yes (ARRYTHMIA) High Cholesterol: No Chemotherapy: Yes Chest Pain: No Congestive Heart Failure: No COPD: Yes Diabetes: No Diminished Hearing: No Endocrine: No Gastrointestinal Disorders: Yes GERD: Yes Genitourinary: No Headaches: Yes Hepatitis: No Hiatal Hernia: No Hypertension: Yes Immune Disorder: No Kidney Stones: Yes Musculoskeletal: Yes (TMJ) Neurologic: Yes (VERTIGO) Psychiatric: No Reproductive: No Respiratory: Yes (NODULES ) Immunizations Current: Yes Sleep Apnea: No Thyroid Disease: No Tetanus Vaccination: < 5 Years Influenza Vaccination: Yes Menopausal: Yes : 2 Para: 2 Past Surgical History Pacemaker: No Other Surgery: Yes (RT mastectomy) Social History Alcohol Use: No Tobacco Use: No Substance Use: No Allergies-Medications (Allergen,Severity, Reaction): Coded Allergies: *MDRO Multi-Drug Resistant Organism (Unverified Adverse Reaction, Unknown , 09/11/16) Cdiff last treatment few days UT[employer]ATOR. + MRSA leg 07/31/14. Reported Meds & Prescriptions Reported Meds & Active Scripts Active Zofran Odt (Ondansetron Odt) 4 Mg Tab 4 Mg SL Q6HR PRN 3 Days Prednisone 20 Mg Tab 20 Mg PO DAILY Doxycycline Hyclate 100 Mg Cap 100 Mg PO BID Pantoprazole (Pantoprazole Sodium) 40 Mg Tab 40 Mg PO DAILY Guaifenesin-Codeine Liq 100-10 Mg/5 Ml Soln 10 Ml PO Q6H PRN Percocet (Oxycodone-Acetaminophen) 5-325 mg Tab 1 Tab PO Q6H PRN Klvxhuxvnu-Hvutsvjltrhlg-Bffndgir 50-325-40 Mg Tab 1 Tab PO Q6HR PRN Vigamox Opth Drops (Moxifloxacin Opth Drops) 0.5 % Soln 1 Drop EACH EYE QID Erythromycin Opth Oint 5 Mg/Gm Oint 1 Applic EACH EYE QID Coumadin (Warfarin) 5 Mg Tab 5 Mg PO DAILY Atenolol 25 Mg Tab 25 Mg PO DAILY 30 Days Reported Lisinopril 5 Mg Tab 5 Mg PO DAILY Atorvastatin (Atorvastatin Calcium) 40 Mg Tab 40 Mg PO HS Review of Systems Except as stated in HPI: all other systems reviewed are Neg General / Constitutional: No: Fever, Chills HENT: No: Headaches, Lightheadedness Cardiovascular: No: Chest Pain or Discomfort Respiratory: No: Cough, Shortness of Breath Gastrointestinal: Positive: Nausea, No: Vomiting, Diarrhea, Abdominal Pain Genitourinary: No: Dysuria Musculoskeletal: No: Myalgias Neurologic: Positive: Weakness, No: Dizziness, Syncope Physical Exam Narrative GENERAL: Thin, well-developed, alert elderly female. Resting comfortably in no acute distress SKIN: Warm and dry. HEAD: Atraumatic. Normocephalic. EYES: Pupils equal, left pupil with irregular shape.. No scleral icterus. No injection or drainage. ENT: No nasal bleeding or discharge. Mucous membranes pink and moist. NECK: Trachea midline. No JVD. CARDIOVASCULAR: Regular rate and rhythm. RESPIRATORY: No accessory muscle use. Clear to auscultation. Breath sounds equal bilaterally. GASTROINTESTINAL: Abdomen soft, non-tender, nondistended. Hepatic and splenic margins not palpable. MUSCULOSKELETAL: Extremities without clubbing, cyanosis, or edema. No obvious deformities. NEUROLOGICAL: Awake and alert. No obvious cranial nerve deficits. Motor grossly within normal limits. Five out of 5 muscle strength in the arms and legs. Normal speech. PSYCHIATRIC: Appropriate mood and affect; insight and judgment normal. Data Data Last Documented VS Vital Signs Date Time Temp Pulse Resp B/P Pulse Ox O2 Delivery O2 Flow Rate FiO2 09/11/16 14:02 98.2 68 16 159/90 95 Room Air Orders Complete Blood Count With Diff (09/11/16 15:17) Basic Metabolic Panel (Bmp) (09/11/16 15:17) Urinalysis - C+S If Indicated (09/11/16 15:17) Ondansetron Odt (Zofran Odt) (09/11/16 15:45) Prothrombin Time / Inr (Pt) (09/11/16 16:54) Enoxaparin Inj (Lovenox Inj) (09/11/16 18:15) Warfarin (Coumadin) (09/11/16 18:15) Labs Laboratory Tests Test 09/11/16 09/11/16 15:46 16:57 White Blood Count 4.0 TH/MM3 Red Blood Count 4.51 MIL/MM3 Hemoglobin 13.1 GM/DL Hematocrit 39.7 % Mean Corpuscular Volume 88.0 FL Mean Corpuscular Hemoglobin 28.9 PG Mean Corpuscular Hemoglobin 32.9 % Concent Red Cell Distribution Width 19.2 % Platelet Count 158 TH/MM3 Mean Platelet Volume 8.6 FL Neutrophils (%) (Auto) 66.2 % Lymphocytes (%) (Auto) 22.1 % Monocytes (%) (Auto) 10.6 % Eosinophils (%) (Auto) 0.6 % Basophils (%) (Auto) 0.5 % Neutrophils # (Auto) 2.7 TH/MM3 Lymphocytes # (Auto) 0.9 TH/MM3 Monocytes # (Auto) 0.4 TH/MM3 Eosinophils # (Auto) 0.0 TH/MM3 Basophils # (Auto) 0.0 TH/MM3 CBC Comment DIFF FINAL Differential Comment Urine Color YELLOW Urine Turbidity CLEAR Urine pH 6.0 Urine Specific [place] 1.018 Urine Protein NEG mg/dL Urine Glucose (UA) NEG mg/dL Urine Ketones NEG mg/dL Urine Occult Blood NEG Urine Nitrite NEG Urine Bilirubin NEG Urine Urobilinogen LESS THAN 2.0 MG/DL Urine Leukocyte Esterase NEG Urine RBC 1 /hpf Urine WBC 1 /hpf Urine Squamous Epithelial 1 /hpf Cells Urine Bacteria RARE /hpf Urine Mucus FEW /lpf Microscopic Urinalysis Comment CULT NOT INDICATED Sodium Level 141 MEQ/L Potassium Level 3.9 MEQ/L Chloride Level 104 MEQ/L Carbon Dioxide Level 32.4 MEQ/L Anion Gap 5 MEQ/L Blood Urea Nitrogen 13 MG/DL Creatinine 0.69 MG/DL Estimat Glomerular Filtration 85 ML/MIN Rate Random Glucose 99 MG/DL Calcium Level 8.8 MG/DL Prothrombin Time 12.5 SEC Prothromb Time International 1.1 RATIO Ratio MDM Medical Decision Making Medical Screen Exam Complete: Yes Emergency Medical Condition: Yes Interpretation(s) Laboratory Tests Test 09/11/16 15:46 White Blood Count 4.0 TH/MM3 Red Blood Count 4.51 MIL/MM3 Hemoglobin 13.1 GM/DL Hematocrit 39.7 % Mean Corpuscular Volume 88.0 FL Mean Corpuscular Hemoglobin 28.9 PG Mean Corpuscular Hemoglobin 32.9 % Concent Red Cell Distribution Width 19.2 % Platelet Count 158 TH/MM3 Mean Platelet Volume 8.6 FL Neutrophils (%) (Auto) 66.2 % Lymphocytes (%) (Auto) 22.1 % Monocytes (%) (Auto) 10.6 % Eosinophils (%) (Auto) 0.6 % Basophils (%) (Auto) 0.5 % Neutrophils # (Auto) 2.7 TH/MM3 Lymphocytes # (Auto) 0.9 TH/MM3 Monocytes # (Auto) 0.4 TH/MM3 Eosinophils # (Auto) 0.0 TH/MM3 Basophils # (Auto) 0.0 TH/MM3 CBC Comment DIFF FINAL Differential Comment Urine Color YELLOW Urine Turbidity CLEAR Urine pH 6.0 Urine Specific [place] 1.018 Urine Protein NEG mg/dL Urine Glucose (UA) NEG mg/dL Urine Ketones NEG mg/dL Urine Occult Blood NEG Urine Nitrite NEG Urine Bilirubin NEG Urine Urobilinogen LESS THAN 2.0 MG/DL Urine Leukocyte Esterase NEG Urine RBC 1 /hpf Urine WBC 1 /hpf Urine Squamous Epithelial 1 /hpf Cells Urine Bacteria RARE /hpf Urine Mucus FEW /lpf Microscopic Urinalysis Comment CULT NOT INDICATED Sodium Level 141 MEQ/L Potassium Level 3.9 MEQ/L Chloride Level 104 MEQ/L Carbon Dioxide Level 32.4 MEQ/L Anion Gap 5 MEQ/L Blood Urea Nitrogen 13 MG/DL Creatinine 0.69 MG/DL Estimat Glomerular Filtration 85 ML/MIN Rate Random Glucose 99 MG/DL Calcium Level 8.8 MG/DL Vital Signs Date Time Temp Pulse Resp B/P Pulse Ox O2 Delivery O2 Flow Rate FiO2 09/11/16 14:02 98.2 68 16 159/90 95 Room Air Differential Diagnosis Gastroenteritis versus UTI versus viral syndrome versus pancreatitis versus cholecystitis versus other Narrative Course Patient is a 66-year-old female presenting to emergency Department due to feeling unwell. She had an episode of nausea last night, she's been tolerating food and fluids today. We'll check basic labs and a urinalysis. Patient was given Zofran ODT. Her vital signs are stable. CBC, chemistry, urinalysis unremarkable. Patient's vital signs are stable once again. Patient will be discharged home with a prescription for Zofran. She is encouraged to follow-up with Dr. Sweeney. She is encouraged to return to emergency department for any new or worsening symptoms. Patient verbalized understanding of instructions. Patient stable for discharge. Patient's son stated that she was discharged from the hospital and supposed to be on 5 mg of Coumadin, when the home health nurse presented to the house 3 days ago she told him to stop giving her the 7.5 mg dose that he had had at home because he was not given a prescription on discharge. Son states that the INR was checked 2 days ago and was 2.0. They have not followed up with her primary care provider since her discharge the hospital 2 weeks ago. Son was advised to have patient follow up with Dr. Sweeney tomorrow. Patient will be given a dose of Lovenox and Coumadin the emergency department. She will be provided with a prescription for Lovenox at home. Patient has an ample supply of 7.5 mg of Coumadin tablets. Son was instructed to continue that dose have INR checked with home health or with her primary care provider. Again it was stressed to him that she needs to have follow-up with her primary doctor in the next 1-2 days. Son states that he is insulin-dependent diabetic and is comfortable giving Lovenox injection subcutaneously. He verbalized understanding of these instructions. Diagnosis Primary Impression: Nausea Additional Impression: Subtherapeutic international normalized ratio (INR) Referrals: Primary Care Physician Patient Instructions: Acute Nausea and Vomiting (ED), General Instructions, Warfarin (By mouth) Additional Instructions: Follow-up with her primary doctor Increase fluid intake Return to emergency department for any new or worsening symptoms Med/Other Pt SpecificInfo: Prescription(s) given Scripts Ondansetron Odt (Zofran Odt)4 Mg Tab4 Mg SL Q6HR PRN (Nausea/Vomiting) 3 Days Ref 0 Prov:Usha Villarreal 09/11/16 Disposition: 01 DISCHARGE HOME Condition: Stable Usha Villarreal Sep 11, 2016 15:42
[2016-09-11] MEDS ORDERED: ONDANSETRON ODT 4 MG TAB PO ONE (15:45)
[2016-09-11 16:03] LABS: AUTOMATED NEUTROPHIL # 2.7 TH/MM3 (1.8-7.7); BASOPHIL % 0.5 % (0.0-2.0); EOSINOPHIL % 0.6 % (0.0-4.0); HEMATOCRIT 39.7 % (35.0-46.0); HEMO FLAGS DIFF FINAL; LYMPH % 22.1 % (9.0-44.0); LYMPHOCYTE # 0.9 TH/MM3 (1.0-4.8); MEAN CORPUSCULAR HEMOGLOBIN 28.9 PG (27.0-34.0); MEAN CORPUSCULAR HGB CONC 32.9 % (32.0-36.0); MONO % 10.6 % (0.0-8.0); NEUT % 66.2 % (16.0-70.0); PLATELET COUNT 158 TH/MM3 (150-450); RED BLOOD COUNT 4.51 MIL/MM3 (4.00-5.30); RED CELL DISTRIBUTION WIDTH 19.2 % (11.6-17.2)
[2016-09-11 16:09] LABS: BACTERIA, URINE RARE /hpf; BLOOD, URINE NEG (NEG); GLUCOSE,URINE NEG (NEG); KETONE, URINE NEG (NEG); MUCUS URINE FEW /lpf (OCC); NITRITE,URINE NEG (NEG); SQUAMOUS EPITHELIAL CELL URINE 1 /hpf (0-5); URINE COLOR YELLOW (YELLW/STRAW)
[2016-09-11 16:10] LABS: COMMENT (UR) CULT NOT INDICATED; CULTURE IF INDICATED CULT NOT INDICATED
[2016-09-11 16:18] LABS: BICARBONATE 32.4 MEQ/L (21.0-32.0); POTASSIUM 3.9 MEQ/L (3.5-5.1)
[2016-09-11] MEDS ORDERED: ZOFR4TAB3 SL (16:41)
--- NOTE | 2016-09-11 16:49 | PD ---
Data Data Last Documented VS Vital Signs Date Time Temp Pulse Resp B/P Pulse Ox O2 Delivery O2 Flow Rate FiO2 09/11/16 14:02 98.2 68 16 159/90 95 Room Air Orders Complete Blood Count With Diff (09/11/16 15:17) Basic Metabolic Panel (Bmp) (09/11/16 15:17) Urinalysis - C+S If Indicated (09/11/16 15:17) Ondansetron Odt (Zofran Odt) (09/11/16 15:45) Labs Laboratory Tests Test 09/11/16 15:46 White Blood Count 4.0 TH/MM3 Red Blood Count 4.51 MIL/MM3 Hemoglobin 13.1 GM/DL Hematocrit 39.7 % Mean Corpuscular Volume 88.0 FL Mean Corpuscular Hemoglobin 28.9 PG Mean Corpuscular Hemoglobin 32.9 % Concent Red Cell Distribution Width 19.2 % Platelet Count 158 TH/MM3 Mean Platelet Volume 8.6 FL Neutrophils (%) (Auto) 66.2 % Lymphocytes (%) (Auto) 22.1 % Monocytes (%) (Auto) 10.6 % Eosinophils (%) (Auto) 0.6 % Basophils (%) (Auto) 0.5 % Neutrophils # (Auto) 2.7 TH/MM3 Lymphocytes # (Auto) 0.9 TH/MM3 Monocytes # (Auto) 0.4 TH/MM3 Eosinophils # (Auto) 0.0 TH/MM3 Basophils # (Auto) 0.0 TH/MM3 CBC Comment DIFF FINAL Differential Comment Urine Color YELLOW Urine Turbidity CLEAR Urine pH 6.0 Urine Specific [place] 1.018 Urine Protein NEG mg/dL Urine Glucose (UA) NEG mg/dL Urine Ketones NEG mg/dL Urine Occult Blood NEG Urine Nitrite NEG Urine Bilirubin NEG Urine Urobilinogen LESS THAN 2.0 MG/DL Urine Leukocyte Esterase NEG Urine RBC 1 /hpf Urine WBC 1 /hpf Urine Squamous Epithelial 1 /hpf Cells Urine Bacteria RARE /hpf Urine Mucus FEW /lpf Microscopic Urinalysis Comment CULT NOT INDICATED Sodium Level 141 MEQ/L Potassium Level 3.9 MEQ/L Chloride Level 104 MEQ/L Carbon Dioxide Level 32.4 MEQ/L Anion Gap 5 MEQ/L Blood Urea Nitrogen 13 MG/DL Creatinine 0.69 MG/DL Estimat Glomerular Filtration 85 ML/MIN Rate Random Glucose 99 MG/DL Calcium Level 8.8 MG/DL MDM Supervised Visit with DYLAN: Yes Narrative Course The history, exam, and medical decision-making in the associated mid-level provider note were completed with my assistance. I reviewed and agree with the findings presented. I attest that I had a [id number] encounter with the patient on the same day, and personally performed and documented my assessment and findings in the medical record. *My assessment and Findings: 66 year-old woman, here because she feels generally sick. Review of her records shows she had a previous admission where she also felt generally sick and then couldn't remember why she was in the hospital. She looks well. Labs are unremarkable. Says she feels a little sick to her stomach whenever some Zofran. Outpatient follow-up. Diagnosis Primary Impression: Nausea Referrals: Primary Care Physician Patient Instructions: General Instructions, Acute Nausea and Vomiting (ED) Departure Forms: Tests/Procedures Additional Instruction: Follow-up with her primary doctor Increase fluid intake Return to emergency department for any new or worsening symptoms Scripts Ondansetron Odt (Zofran Odt)4 Mg Tab4 Mg SL Q6HR PRN (Nausea/Vomiting) 3 Days Ref 0 Prov:Usha Villarreal 09/11/16 Disposition: 01 DISCHARGE HOME Condition: Stable Anthony Metcalf MD Sep 11, 2016 16:49
[2016-09-11 17:28] LABS: INTERNATIONAL NORMALIZED RATIO 1.1 RATIO
[2016-09-11 17:33] LABS: PROTHROMBIN TIME - PATIENT 12.5 SEC (9.8-11.6)
[2016-09-11] MEDS ORDERED: WARFARIN SOD 10 MG TAB PO ONE (18:15)
[2016-09-11] MEDS ORDERED: ENOXAPARIN SODIUM 40 MG/0.4 ML SYRINGE SQ ONE (18:15)
--- NOTE | 2016-09-11 18:22 | PD ---
Data Data Last Documented VS Vital Signs Date Time Temp Pulse Resp B/P Pulse Ox O2 Delivery O2 Flow Rate FiO2 09/11/16 14:02 98.2 68 16 159/90 95 Room Air Orders Complete Blood Count With Diff (09/11/16 15:17) Basic Metabolic Panel (Bmp) (09/11/16 15:17) Urinalysis - C+S If Indicated (09/11/16 15:17) Ondansetron Odt (Zofran Odt) (09/11/16 15:45) Prothrombin Time / Inr (Pt) (09/11/16 16:54) Enoxaparin Inj (Lovenox Inj) (09/11/16 18:15) Warfarin (Coumadin) (09/11/16 18:15) Labs Laboratory Tests Test 09/11/16 09/11/16 15:46 16:57 White Blood Count 4.0 TH/MM3 Red Blood Count 4.51 MIL/MM3 Hemoglobin 13.1 GM/DL Hematocrit 39.7 % Mean Corpuscular Volume 88.0 FL Mean Corpuscular Hemoglobin 28.9 PG Mean Corpuscular Hemoglobin 32.9 % Concent Red Cell Distribution Width 19.2 % Platelet Count 158 TH/MM3 Mean Platelet Volume 8.6 FL Neutrophils (%) (Auto) 66.2 % Lymphocytes (%) (Auto) 22.1 % Monocytes (%) (Auto) 10.6 % Eosinophils (%) (Auto) 0.6 % Basophils (%) (Auto) 0.5 % Neutrophils # (Auto) 2.7 TH/MM3 Lymphocytes # (Auto) 0.9 TH/MM3 Monocytes # (Auto) 0.4 TH/MM3 Eosinophils # (Auto) 0.0 TH/MM3 Basophils # (Auto) 0.0 TH/MM3 CBC Comment DIFF FINAL Differential Comment Urine Color YELLOW Urine Turbidity CLEAR Urine pH 6.0 Urine Specific Marina 1.018 Urine Protein NEG mg/dL Urine Glucose (UA) NEG mg/dL Urine Ketones NEG mg/dL Urine Occult Blood NEG Urine Nitrite NEG Urine Bilirubin NEG Urine Urobilinogen LESS THAN 2.0 MG/DL Urine Leukocyte Esterase NEG Urine RBC 1 /hpf Urine WBC 1 /hpf Urine Squamous Epithelial 1 /hpf Cells Urine Bacteria RARE /hpf Urine Mucus FEW /lpf Microscopic Urinalysis Comment CULT NOT INDICATED Sodium Level 141 MEQ/L Potassium Level 3.9 MEQ/L Chloride Level 104 MEQ/L Carbon Dioxide Level 32.4 MEQ/L Anion Gap 5 MEQ/L Blood Urea Nitrogen 13 MG/DL Creatinine 0.69 MG/DL Estimat Glomerular Filtration 85 ML/MIN Rate Random Glucose 99 MG/DL Calcium Level 8.8 MG/DL Prothrombin Time 12.5 SEC Prothromb Time International 1.1 RATIO Ratio MDM Supervised Visit with DYLAN: Yes Narrative Course I, Dr. Greenberg, have reviewed the advance practice practitioner's documentation and am in agreement, met with the patient face to face, made the diagnosis, and the medical decision making was done by me. *My assessment and Findings: Patient seen and examined by me in addition to Usha GARNER, Jennifer Hernandez and Dr. Metcalf. Patient states she feels well and has only some mild abdominal cramping. The main reason they were traveling today is because her brain the patient to her primary care provider because her INR was low and the home health nurse told her to stop taking her Coumadin. Apparently on her last admission her Coumadin dose was 7.5 mg daily and it was decreased to 5 mg daily but no injection been written so she has not been taking this medicine. Currently the patient states she does not have any complaints like to go home. Initial workup is negative. After discussion with the patient she is on Coumadin for both atrial fibrillation as well as DVT and PE. She will be prescribed Lovenox bridging for Coumadin. Discussed needs follow-up with her primary care physician as soon as possible for Coumadin monitoring. Otherwise she is stable for discharge at this time. Diagnosis Primary Impression: Nausea Referrals: Primary Care Physician Patient Instructions: General Instructions, Acute Nausea and Vomiting (ED) Departure Forms: Tests/Procedures Additional Instruction: Follow-up with her primary doctor Increase fluid intake Return to emergency department for any new or worsening symptoms Scripts Ondansetron Odt (Zofran Odt)4 Mg Tab4 Mg SL Q6HR PRN (Nausea/Vomiting) 3 Days Ref 0 Prov:Usha Villarreal 09/11/16 Disposition: 01 DISCHARGE HOME Condition: Stable Josh Greenberg MD Sep 11, 2016 18:22
== END 2016-09-11 19:23 | disposition home or self-care (01) ==
LOC: NEPD 14:00
DX: R11.0 Nausea (principal); R53.1 Weakness; R79.1 Abnormal coagulation profile; I10 Essential (primary) hypertension; Z79.01 Long term (current) use of anticoagulants; Z85.3 Personal history of malignant neoplasm of breast; Z86.79 Personal history of other diseases of the circulatory system; Z87.09 Personal history of other diseases of the respiratory system; Z87.19 Personal history of other diseases of the digestive system; Z87.442 Personal history of urinary calculi; Z87.39 Personal history of other diseases of the musculoskeletal system and connective tissue; Z86.69 Personal history of other diseases of the nervous system and sense organs
CPT/HCPCS: 80048; 81001; 85025; 85610; 96372; 99283; J1650

== ENCOUNTER 2016-09-27 09:08 | Emergency (ER) | payer MEDICARE, OTHER ==
[~2016-09-27] VITALS: Ht 160 cm; Wt 52.0 kg
[~2016-09-27 09:08] MED LIST changes: +ZOFR4TAB3 SL
[2016-09-27 09:12] VITALS: BP 181/90; PULSE 91; RESP 17; TEMP 98.4; O2SAT 96
[2016-09-27] MEDS ORDERED: CYCLOBENZAPRINE HCL 10 MG TAB PO ONE (09:30)
[2016-09-27] MEDS ORDERED: SODIUM CHLORID 0.9% 500 ML INJ 500 ML IV ONE (09:30)
[2016-09-27] MEDS ORDERED: KETOROLAC TROMETHAMINE 30 MG/ML (IVP) VIAL IV PUSH ONE (09:30)
[2016-09-27 09:32] VITALS: BP 156/85; PULSE 89; RESP 17; O2SAT 96
[2016-09-27 09:51] LABS: AUTOMATED NEUTROPHIL # 4.6 TH/MM3 (1.8-7.7); BASOPHIL % 0.6 % (0.0-2.0); EOSINOPHIL # 0.3 TH/MM3 (0-0.4); EOSINOPHIL % 3.9 % (0.0-4.0); HEMATOCRIT 36.1 % (35.0-46.0); HEMO FLAGS DIFF FINAL; LYMPH % 12.8 % (9.0-44.0); LYMPHOCYTE # 0.8 TH/MM3 (1.0-4.8); MEAN CELL VOLUME 86.8 FL (80.0-100.0); MEAN CORPUSCULAR HEMOGLOBIN 29.8 PG (27.0-34.0); MEAN CORPUSCULAR HGB CONC 34.4 % (32.0-36.0); MONO % 11.9 % (0.0-8.0); NEUT % 70.8 % (16.0-70.0); PLATELET COUNT 235 TH/MM3 (150-450); RED BLOOD COUNT 4.16 MIL/MM3 (4.00-5.30); RED CELL DISTRIBUTION WIDTH 19.7 % (11.6-17.2); WHITE BLOOD COUNT 6.5 TH/MM3 (4.0-11.0)
--- NOTE | 2016-09-27 09:52 | PD ---
HPI Chief Complaint: Pain: Acute or Chronic Time Seen by Provider: 09:19 Travel History International Travel<30 days: No Contact w/Intl Traveler<30days: No Traveled to known affect area: No History of Present Illness HPI Patient is a 66 year old female who complains of shoulder and leg pain since waking up this morning. She says she feels very "stiff." she denies any injuries. She says she went to her PCP yesterday and had two medications refilled. She says she thinks her pain is due to the Coumadin she is on. She says she really doesn't understand what Coumadin is. She denies any chest pain or SOB. She is coughing, but says this is normal for her. She denies fever or chills. She denies chest pain or SOB. PFSH Past Medical History Asthma: No Atrial Fibrillation: Yes Blood Disorders: No Anxiety: No Depression: No Heart Rhythm Problems: No Cancer: Yes (R BREAST CA ) Cardiovascular Problems: Yes (A-FIB) High Cholesterol: No Chemotherapy: Yes Chest Pain: No Congestive Heart Failure: No COPD: Yes Diabetes: No Diminished Hearing: No Endocrine: No Gastrointestinal Disorders: Yes GERD: Yes Genitourinary: No Headaches: Yes Hepatitis: No Hiatal Hernia: No Hypertension: Yes Immune Disorder: No Kidney Stones: Yes Musculoskeletal: Yes (TMJ) Neurologic: Yes (VERTIGO) Psychiatric: No Reproductive: No Respiratory: Yes (NODULES ) Immunizations Current: Yes Sleep Apnea: No Thyroid Disease: No Tetanus Vaccination: < 5 Years Influenza Vaccination: No ?: Not Menopausal: Yes : 2 Para: 2 Past Surgical History Pacemaker: No Other Surgery: Yes (RT mastectomy) Social History Alcohol Use: No Tobacco Use: No Substance Use: No Allergies-Medications (Allergen,Severity, Reaction): Coded Allergies: *MDRO Multi-Drug Resistant Organism (Unverified Adverse Reaction, Unknown , 09/27/16) Cdiff last treatment few days 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 + MRSA leg 07/31/14. Reported Meds & Prescriptions Reported Meds & Active Scripts Active Zofran Odt (Ondansetron Odt) 4 Mg Tab 4 Mg SL Q6HR PRN 3 Days Prednisone 20 Mg Tab 20 Mg PO DAILY Doxycycline Hyclate 100 Mg Cap 100 Mg PO BID Pantoprazole (Pantoprazole Sodium) 40 Mg Tab 40 Mg PO DAILY Guaifenesin-Codeine Liq 100-10 Mg/5 Ml Soln 10 Ml PO Q6H PRN Percocet (Oxycodone-Acetaminophen) 5-325 mg Tab 1 Tab PO Q6H PRN Swpoupvxfx-Akqiepdmvairz-Pmkliuxs 50-325-40 Mg Tab 1 Tab PO Q6HR PRN Vigamox Opth Drops (Moxifloxacin Opth Drops) 0.5 % Soln 1 Drop EACH EYE QID Erythromycin Opth Oint 5 Mg/Gm Oint 1 Applic EACH EYE QID Coumadin (Warfarin) 5 Mg Tab 5 Mg PO DAILY Atenolol 25 Mg Tab 25 Mg PO DAILY 30 Days Reported Lisinopril 5 Mg Tab 5 Mg PO DAILY Atorvastatin (Atorvastatin Calcium) 40 Mg Tab 40 Mg PO HS Review of Systems Except as stated in HPI: all other systems reviewed are Neg General / Constitutional: No: Fever, Chills HENT: No: Headaches, Lightheadedness Cardiovascular: No: Chest Pain or Discomfort Respiratory: Positive: Cough, No: Shortness of Breath Gastrointestinal: No: Nausea, Vomiting Musculoskeletal: Positive: Myalgias, Arthralgias Skin: No Rash, No Change in Pigmentation Neurologic: No: Weakness, Dizziness Physical Exam Narrative GENERAL: Awake and alert, in no acute distress. SKIN: Focused skin assessment warm/dry. No erythema or warmth of her joints. HEAD: Atraumatic. Normocephalic. EYES: Pupils equal and round. No scleral icterus. ENT: Mucous membranes pink and moist. NECK: Trachea midline. No JVD. CARDIOVASCULAR: Regular rate and rhythm. No murmur appreciated. RESPIRATORY: No accessory muscle use. Clear to auscultation. Breath sounds equal bilaterally. MUSCULOSKELETAL: No obvious deformities. No clubbing. No cyanosis. No edema. Full range of motion of her upper and lower extremities. Pulses intact. NEUROLOGICAL: Awake and alert. No obvious cranial nerve deficits. Motor grossly within normal limits. Normal speech. PSYCHIATRIC: Appropriate mood and affect; insight and judgment normal. Data Data Last Documented VS Vital Signs Date Time Temp Pulse Resp B/P Pulse Ox O2 Delivery O2 Flow Rate FiO2 09/27/16 09:32 89 17 156/85 96 Room Air 09/27/16 09:12 98.4 Orders Complete Blood Count With Diff (09/27/16 09:27) Comprehensive Metabolic Panel (09/27/16 09:27) Creatine Kinase (Cpk) (09/27/16 09:27) Chest, Pa & Lat (09/27/16 ) Sodium Chlorid 0.9% 500 Ml Inj (Ns 500 M (09/27/16 09:30) Ketorolac Inj (Toradol Inj) (09/27/16 09:30) Cyclobenzaprine (Flexeril) (09/27/16 09:30) Act Partial Throm Time (Ptt) (09/27/16 09:52) Prothrombin Time / Inr (Pt) (09/27/16 09:52) Labs Laboratory Tests Test 09/27/16 09/27/16 09:35 10:05 White Blood Count 6.5 TH/MM3 Red Blood Count 4.16 MIL/MM3 Hemoglobin 12.4 GM/DL Hematocrit 36.1 % Mean Corpuscular Volume 86.8 FL Mean Corpuscular Hemoglobin 29.8 PG Mean Corpuscular Hemoglobin 34.4 % Concent Red Cell Distribution Width 19.7 % Platelet Count 235 TH/MM3 Mean Platelet Volume 8.2 FL Neutrophils (%) (Auto) 70.8 % Lymphocytes (%) (Auto) 12.8 % Monocytes (%) (Auto) 11.9 % Eosinophils (%) (Auto) 3.9 % Basophils (%) (Auto) 0.6 % Neutrophils # (Auto) 4.6 TH/MM3 Lymphocytes # (Auto) 0.8 TH/MM3 Monocytes # (Auto) 0.8 TH/MM3 Eosinophils # (Auto) 0.3 TH/MM3 Basophils # (Auto) 0.0 TH/MM3 CBC Comment DIFF FINAL Differential Comment Sodium Level 141 MEQ/L Potassium Level 4.2 MEQ/L Chloride Level 108 MEQ/L Carbon Dioxide Level 24.2 MEQ/L Anion Gap 9 MEQ/L Blood Urea Nitrogen 14 MG/DL Creatinine 0.62 MG/DL Estimat Glomerular Filtration 96 ML/MIN Rate Random Glucose 106 MG/DL Calcium Level 8.7 MG/DL Total Bilirubin 0.6 MG/DL Aspartate Amino Transf 19 U/L (AST/SGOT) Alanine Aminotransferase 15 U/L (ALT/SGPT) Alkaline Phosphatase 105 U/L Total Creatine Kinase 65 U/L Total Protein 6.6 GM/DL Albumin 3.0 GM/DL Prothrombin Time 32.8 SEC Prothromb Time International 2.8 RATIO Ratio Activated Partial 35.5 SEC Thromboplast Time MDM Medical Decision Making Medical Screen Exam Complete: Yes Emergency Medical Condition: Yes Medical Record Reviewed: Yes Differential Diagnosis electrolyte abnormalities vs muscle strain vs arthritis vs dehydration Narrative Course Patient is a 66-year-old female comes in complaining of arm and leg pain that started this morning. Exam shows no acute abnormalities, she has full range of motion of her extremities. Labs sent show no electrolyte abnormalities, CK is within normal limits. Chest x-ray performed shows no acute abnormalities. Patient given IV fluids, Toradol, Flexeril. She reports resolution of her symptoms. Patient advised to drink plenty of fluids. Advised to take Tylenol as needed for pain. Given a prescription for small amount of Flexeril to take for severe muscle aches. Advised follow-up with her doctor. Advised to return to the ED as needed for any worsening symptoms. Diagnosis Primary Impression: Musculoskeletal pain Patient Instructions: General Instructions, Musculoskeletal Pain (ED) Additional Instructions: Drink plenty of fluids. Try Tylenol for pain and you can take Flexeril for severe muscle strain. Follow up with your doctor. Return to the ED as needed for any worsening symptoms. Scripts Cyclobenzaprine (Flexeril)5 Mg Tab5 Mg PO TID #10 TAB Ref 0 Prov:Gloria Hubbard MD 09/27/16 Disposition: 01 DISCHARGE HOME Condition: Stable Gloria Hubbard MD Sep 27, 2016 09:52
--- NOTE | 2016-09-27 10:07 | RADRPT ---
EXAM DATE/TIME: 09/27/2016 09:43 [facility] COMPARISON: CT PULMONARY ANGIOGRAM, August 30, 2016, 8:34. CHEST SINGLE AP, August 30, 2016, 6:34. INDICATIONS : Syncopal episode. Patient states arm numbness and stiffness in neck and knees. MEDICAL HISTORY : Chronic obstructive pulmonary disease. Carcinoma, breast SURGICAL HISTORY : Infusaport. ENCOUNTER: Initial ACUITY: 1 day PAIN SCORE: 0/10 LOCATION: Bilateral chest FINDINGS: Left-sided portacatheter is noted and the tip overlies the SVC. The lungs are clear. There is no effu karyna. The osseous structures are intact. CONCLUSION: No acute disease. Brendan Harris MD on September 27, 2016 at 10:04 Board Certified Radiologist. This report was verified electronically.
[2016-09-27 10:31] LABS: APTT (PATIENT) 35.5 SEC (24.3-30.1); INTERNATIONAL NORMALIZED RATIO 2.8 RATIO; PROTHROMBIN TIME - PATIENT 32.8 SEC (9.8-11.6)
[2016-09-27 11:13] LABS: ALKALINE PHOSPHATASE 105 U/L (45-117); ALT (GPT) 15 U/L (10-53); AST (GOT) 19 U/L (15-37); BLOOD UREA NITROGEN 14 MG/DL (7-18); GLOMERULAR FILTRATION RATE 96 ML/MIN (>89); POTASSIUM 4.2 MEQ/L (3.5-5.1); SODIUM (NA) 141 MEQ/L (136-145); TOTAL BILIRUBIN ADULT 0.6 MG/DL (0.2-1.0)
[2016-09-27 11:15] LABS: ANION GAP 9 MEQ/L (5-15); BICARBONATE 24.2 MEQ/L (21.0-32.0); CHLORIDE 108 MEQ/L (98-107); CREATINE KINASE 65 U/L (26-192)
[2016-09-27] MEDS ORDERED: CYCL5TAB PO (11:29)
[2016-09-27 11:47] VITALS: BP 154/87
== END 2016-09-27 11:49 | disposition home or self-care (01) ==
LOC: NEPD 09:08
DX: M79.1 Myalgia (principal); I48.91 Unspecified atrial fibrillation; J44.9 Chronic obstructive pulmonary disease, unspecified; K21.9 Gastro-esophageal reflux disease without esophagitis; I10 Essential (primary) hypertension; Z87.442 Personal history of urinary calculi; R42 Dizziness and giddiness; Z79.01 Long term (current) use of anticoagulants
CPT/HCPCS: 71020; 80053; 82550; 85025; 85610; 85730; 96361; 96374; 99283; J1885; J7040

== ENCOUNTER 2017-04-15 13:51 | Emergency (ER) | payer MEDICARE, OTHER ==
[~2017-04-15] VITALS: Ht 160 cm; Wt 58.0 kg
[~2017-04-15 13:51] MED LIST changes: +CYCL5TAB PO
[2017-04-15] MEDS ORDERED: SODIUM CHLORIDE 0.9% FLUSH 10 ML FLUSH IVF PRN (14:15)
[2017-04-15] MEDS ORDERED: RESP: ALBUTEROL 2.5 MG/IPRATROPIUM 0.5 MG NEB (SCH) INH ONE (14:15)
--- NOTE | 2017-04-15 14:20 | PD ---
HPI Chief Complaint: Cold / Flu Symptoms Time Seen by Provider: 14:05 Travel History International Travel<30 days: No Contact w/Intl Traveler<30days: No Traveled to known affect area: No History of Present Illness HPI 66-year-old female presents to the emergency room for evaluation of productive cough for the past week. Patient reports sputum is green. She has associated body aches and nasal congestion with green sputum. She also has been feeling feverish daily but denies actually taken her temperature/objective fevers. She has not been taking anything jcxi-ymj-rfmddem for her symptoms other than aspirin for body aches. She denies any associated sore throat or earache. She adamantly denies chest pain, shortness of breath, or abdominal pain. Patient has had pneumonia before and states she does not feel as sick now she did then. She has history of COPD, hypertension, and is recently in remission from breast cancer. PFSH Past Medical History Asthma: No Atrial Fibrillation: Yes Blood Disorders: No Anxiety: No Depression: No Heart Rhythm Problems: No Cancer: Yes (R BREAST CA ) Cardiovascular Problems: Yes (A-FIB) High Cholesterol: No Chemotherapy: Yes Chest Pain: No Congestive Heart Failure: No COPD: Yes Diabetes: No Diminished Hearing: No Endocrine: No Gastrointestinal Disorders: Yes GERD: Yes Genitourinary: No Headaches: Yes Hepatitis: No Hiatal Hernia: No Hypertension: Yes Immune Disorder: No Kidney Stones: Yes Musculoskeletal: Yes (TMJ) Neurologic: Yes (VERTIGO) Psychiatric: No Reproductive: No Respiratory: Yes (NODULES ) Immunizations Current: Yes Sleep Apnea: No Thyroid Disease: No Menopausal: Yes : 2 Para: 2 Past Surgical History Pacemaker: No Other Surgery: Yes (RT mastectomy) Social History Alcohol Use: No Tobacco Use: No Substance Use: No Allergies-Medications (Allergen,Severity, Reaction): Coded Allergies: *MDRO Multi-Drug Resistant Organism (Unverified Adverse Reaction, Unknown , 04/15/17) 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 + MRSA leg 07/31/14. Reported Meds & Prescriptions Reported Meds & Active Scripts Active Prednisone 20 Mg Tab 20 Mg PO DAILY 5 Days Tessalon Perles (Benzonatate) 100 Mg Cap 100 Mg PO TID PRN 5 Days Flexeril (Cyclobenzaprine HCl) 5 Mg Tab 5 Mg PO TID Zofran Odt (Ondansetron Odt) 4 Mg Tab 4 Mg SL Q6HR PRN 3 Days Prednisone 20 Mg Tab 20 Mg PO DAILY Doxycycline Hyclate 100 Mg Cap 100 Mg PO BID Pantoprazole (Pantoprazole Sodium) 40 Mg Tab 40 Mg PO DAILY Guaifenesin-Codeine Liq 100-10 Mg/5 Ml Soln 10 Ml PO Q6H PRN Percocet (Oxycodone-Acetaminophen) 5-325 mg Tab 1 Tab PO Q6H PRN Oaepvomyzy-Wynvnklyocnqx-Qnppzobc 50-325-40 Mg Tab 1 Tab PO Q6HR PRN Vigamox Opth Drops (Moxifloxacin Opth Drops) 0.5 % Soln 1 Drop EACH EYE QID Erythromycin Opth Oint 5 Mg/Gm Oint 1 Applic EACH EYE QID Coumadin (Warfarin) 5 Mg Tab 5 Mg PO DAILY Atenolol 25 Mg Tab 25 Mg PO DAILY 30 Days Reported Lisinopril 5 Mg Tab 5 Mg PO DAILY Atorvastatin (Atorvastatin Calcium) 40 Mg Tab 40 Mg PO HS Review of Systems Except as stated in HPI: all other systems reviewed are Neg Physical Exam Narrative GENERAL: Well developed, well-nourished female in no acute distress. Afebrile. Ambulatory. SKIN: Focused skin assessment warm/dry. HEAD: Atraumatic. Normocephalic. ENT: No nasal bleeding or discharge. Mucous membranes pink and moist. NECK: Trachea midline. No JVD. CARDIOVASCULAR: Regular rate and rhythm. No murmur appreciated. RESPIRATORY: No accessory muscle use. Clear to auscultation. Breath sounds equal bilaterally. No crackles, rales, wheezes, or rhonchi. NEUROLOGICAL: Awake and alert. No obvious cranial nerve deficits. Motor grossly within normal limits. Normal speech. PSYCHIATRIC: Appropriate mood and affect; insight and judgment normal. Data Data Last Documented VS Vital Signs Date Time Temp Pulse Resp B/P (MAP) Pulse Ox O2 Delivery O2 Flow Rate FiO2 04/15/17 14:38 94 Room Air 04/15/17 14:38 2.00 04/15/17 14:38 24 04/15/17 14:33 98.0 89 129/76 (93) Orders Orders Complete Blood Count With Diff (04/15/17 14:12) Comprehensive Metabolic Panel (04/15/17 14:12) Influenzae A/B Antigen (04/15/17 14:12) Iv Access Insert/Monitor (04/15/17 14:12) Ecg Monitoring (04/15/17 14:12) Oximetry (04/15/17 14:12) Oxygen Administration (04/15/17 14:12) Chest, Pa & Lat (04/15/17 14:12) Sodium Chloride 0.9% Flush (Ns Flush) (04/15/17 14:15) Albuterol-Ipratropium Neb (Duoneb Neb) (04/15/17 14:15) Labs Laboratory Tests Test 04/15/17 14:45 White Blood Count 11.3 TH/MM3 Red Blood Count 5.26 MIL/MM3 Hemoglobin 14.0 GM/DL Hematocrit 43.1 % Mean Corpuscular Volume 81.8 FL Mean Corpuscular Hemoglobin 26.5 PG Mean Corpuscular Hemoglobin Concent 32.4 % Red Cell Distribution Width 15.9 % Platelet Count 262 TH/MM3 Mean Platelet Volume 8.1 FL Neutrophils (%) (Auto) 75.1 % Lymphocytes (%) (Auto) 13.6 % Monocytes (%) (Auto) 8.5 % Eosinophils (%) (Auto) 2.1 % Basophils (%) (Auto) 0.7 % Neutrophils # (Auto) 8.5 TH/MM3 Lymphocytes # (Auto) 1.5 TH/MM3 Monocytes # (Auto) 1.0 TH/MM3 Eosinophils # (Auto) 0.2 TH/MM3 Basophils # (Auto) 0.1 TH/MM3 CBC Comment DIFF FINAL Differential Comment Blood Urea Nitrogen 14 MG/DL Creatinine 0.61 MG/DL Random Glucose 112 MG/DL Total Protein 7.1 GM/DL Albumin 3.3 GM/DL Calcium Level 9.0 MG/DL Alkaline Phosphatase 125 U/L Aspartate Amino Transf (AST/SGOT) 13 U/L Alanine Aminotransferase (ALT/SGPT) 12 U/L Total Bilirubin 0.5 MG/DL Sodium Level 139 MEQ/L Potassium Level 4.0 MEQ/L Chloride Level 104 MEQ/L Carbon Dioxide Level 27.2 MEQ/L Anion Gap 8 MEQ/L Estimat Glomerular Filtration Rate 98 ML/MIN MDM Medical Decision Making Medical Screen Exam Complete: Yes Emergency Medical Condition: Yes Medical Record Reviewed: Yes Differential Diagnosis Upper respiratory infection, pneumonia, cough, COPD, URI Narrative Course 66-year-old female with history of COPD presents to the emergency room for evaluation of productive cough for the past week. She reports daily subjective fevers but has not actually taken her temperature. She is afebrile well- appearing in the emergency room. Vital signs stable. No increased work of breathing. Lungs sounds clear and equal bilaterally. Chest x-ray is negative. CBC and CMP are essentially unremarkable. DuoNeb in the emergency room. Patient is 93% on room air which appears chronic given her previous records. No indication for antibiotics. She'll be discharged with prescriptions for prednisone and Tessalon Perles. Told to follow up with her primary care physician or return for worsening symptoms. She understands and agrees to plan. Diagnosis Primary Impression: Cough Referrals: Primary Care Physician Additional Instructions: Rest and drink plenty of fluids. Take Tessalon Perles as directed, as needed for cough. Prednisone as directed, until gone. Follow-up with a primary care physician. Return to the emergency room for worsening symptoms. Med/Other Pt SpecificInfo: Prescription(s) given Scripts Prednisone (Prednisone) 20 Mg Tab 20 MG PO DAILY for 5 Days, #5 TAB 0 Refills Prov: Perla Joseph MD 04/15/17 Benzonatate (Tessalon Perles) 100 Mg Cap 100 MG PO TID Y for COUGH for 5 Days, CAP 0 Refills Prov: Perla Joseph MD 04/15/17 Disposition: 01 DISCHARGE HOME Condition: Stable Lisa Amezcua Apr 15, 2017 14:20
[2017-04-15 14:33] VITALS: BP 129/76; PULSE 89; RESP 24; TEMP 98; O2SAT 93
[2017-04-15 14:38] VITALS: O2SAT 94
[2017-04-15 15:13] LABS: AUTOMATED NEUTROPHIL # 8.5 TH/MM3 (1.8-7.7); BASOPHIL # 0.1 TH/MM3 (0-0.2); BASOPHIL % 0.7 % (0.0-2.0); EOSINOPHIL # 0.2 TH/MM3 (0-0.4); EOSINOPHIL % 2.1 % (0.0-4.0); HEMATOCRIT 43.1 % (35.0-46.0); HEMO FLAGS DIFF FINAL; LYMPH % 13.6 % (9.0-44.0); LYMPHOCYTE # 1.5 TH/MM3 (1.0-4.8); MEAN CELL VOLUME 81.8 FL (80.0-100.0); MEAN CORPUSCULAR HEMOGLOBIN 26.5 PG (27.0-34.0); MEAN CORPUSCULAR HGB CONC 32.4 % (32.0-36.0); MONO % 8.5 % (0.0-8.0); NEUT % 75.1 % (16.0-70.0); PLATELET COUNT 262 TH/MM3 (150-450); RED BLOOD COUNT 5.26 MIL/MM3 (4.00-5.30); RED CELL DISTRIBUTION WIDTH 15.9 % (11.6-17.2); WHITE BLOOD COUNT 11.3 TH/MM3 (4.0-11.0)
--- NOTE | 2017-04-15 15:33 | RADRPT ---
EXAM DATE/TIME: 04/15/2017 14:52 [facility] COMPARISON: CHEST PA & LAT, September 27, 2016, 9:43. INDICATIONS : Cough, fever, and weakness. MEDICAL HISTORY : Carcinoma, breast. Chronic obstructive pulmonary disease. SURGICAL HISTORY : Mastectomy, right. ENCOUNTER: Initial ACUITY: 1 week PAIN SCORE: 0/10 LOCATION: Bilateral chest FINDINGS: PA and lateral views of the chest demonstrate the lungs to be symmetrically aerated without evidence of mass, infiltrate or effusion. The cardiomediastinal contours are unremarkable. Osseous structure s are intact. A left subclavian port noted. CONCLUSION: No acute disease. Armen Mejia Jr., MD on April 15, 2017 at 15:31 Board Certified Radiologist. This report was verified electronically.
[2017-04-15 15:34] LABS: ALT (GPT) 12 U/L (10-53); ANION GAP 8 MEQ/L (5-15); AST (GOT) 13 U/L (15-37); BICARBONATE 27.2 MEQ/L (21.0-32.0); BLOOD UREA NITROGEN 14 MG/DL (7-18); CHLORIDE 104 MEQ/L (98-107); GLOMERULAR FILTRATION RATE 98 ML/MIN (>89); SODIUM (NA) 139 MEQ/L (136-145)
[2017-04-15 15:35] LABS: ALKALINE PHOSPHATASE 125 U/L (45-117); TOTAL BILIRUBIN ADULT 0.5 MG/DL (0.2-1.0)
[2017-04-15] MEDS ORDERED: BENZ100 PO (15:54)
[2017-04-15] MEDS ORDERED: PRED20 PO (15:54)
[2017-04-15 16:00] VITALS: BP 140/86; PULSE 80; RESP 24; O2SAT 94
== END 2017-04-15 18:20 | disposition home or self-care (01) ==
LOC: NEPD 13:51
DX: R05 Cough (principal); J44.9 Chronic obstructive pulmonary disease, unspecified; I10 Essential (primary) hypertension; I48.91 Unspecified atrial fibrillation; K21.9 Gastro-esophageal reflux disease without esophagitis; Z85.3 Personal history of malignant neoplasm of breast; Z92.21 Personal history of antineoplastic chemotherapy; Z87.442 Personal history of urinary calculi; Z79.01 Long term (current) use of anticoagulants
CPT/HCPCS: 71020; 80053; 85025; 87804; 94664; 99284

== ENCOUNTER 2018-02-17 21:36 | Observation (INO) ==
[2018-02-18] MEDS ORDERED: Bisacodyl 10 MG Supp RECTAL PRN (04:49)
[2018-02-18 06:38] LABS: ABG Base Excess -2.7 mmol/L (-2-2); ABG PCO2 40 mmHg (38-42); ABG PO2 77 mmHg (61-120)
[2018-02-18] MEDS: MethylPREDNISolone Sod Succinate Inj 40 MG/ML Vial IV.PUSH SCH ×3 (06:54→21:27)
[2018-02-18] MEDS: Heparin - SQ 10,000 UNITS/ML Vial SQ SCH ×2 (06:54→17:05)
[2018-02-18] MEDS ORDERED: Benzonatate 100 MG Capsule PO PRN (08:28)
[2018-02-18] MEDS: guaiFENesin 600 MG ER Tablet PO SCH ×2 (10:13→21:27)
[2018-02-18] MEDS: Senna/Docusate Sodium 8.6/50 MG Tablet PO SCH ×2 (10:14→21:27)
[2018-02-18] MEDS: Acetaminophen 325 MG Tablet PO PRN ×2 (14:02→19:41)
--- NOTE | 2018-02-18 14:30 | P.HP ---
History of Present Illness Primary Care Physician: UNKNOWN Chief Complaint: Shortness of breath History of Present Illness: This is a 67-year-old female with a history of COPD, hypertension, hyperlipidemia and breast cancer status post lumpectomy and chemotherapy. Patient presents to the emergency department because of shortness of breath for 2 days. Started after having a single episode of choking. Since then she has been complaining of progressive shortness of breath with wheezing and nonproductive cough. No fever, chills and chest pain. Patient seen with RN and patient's hearing examiner. At this time, she has no complaints. All other systems reviewed negative. RN reports of intermittent disorientation, also complains of achiness, frontal headache and sore throat. Review of Systems All other systems reviewed negative except as stated in HPI PMF - History History Provided By: Patient, Family Member - Medical History Medical History: Medical History (Last Reviewed 02/18/18 @ 15:11 by Shantanu Torres MD) Breast cancer High cholesterol Hypertension - Surgical History Surgical History: Surgical History (Last Reviewed 02/18/18 @ 15:11 by Shantanu Torres MD) H/O right mastectomy - Family History Family History: Family History (Last Updated 02/18/18 @ 15:11 by Shantanu Torres MD) Other Family history of acute myocardial infarction - Tobacco History Second Hand Smoke Exposure: No Smoking Status: Never smoker - Alcohol History How Often Do You Have a Drink Containing Alcohol: Never - Substance Use History Substance History: No History of Abuse Medications and Allergies Active Medications: Active Medications Acetaminophen (Tylenol) 650 mg PO Q4H PRN PRN Reason: PAIN 1-10 AND/OR FEVER >101F Last Admin: 02/18/18 14:02 Dose: 650 mg Al Hydroxide/Mg Hydroxide (Milk Of Merle Miller) 30 ml PO Q12H PRN PRN Reason: Mild Constipation Albuterol (Albuterol Neb (Prn)) 0.63 mg NEB Q6HR NEB PRN PRN Reason: SHORTNESS OF BREATH/WHEEZING Albuterol (Albuterol Neb (Rosalba)) 0.63 mg NEB QID NEB ROSALBA Benzonatate (Tessalon Perles) 200 mg PO Q8H PRN PRN Reason: COUGH Bisacodyl (Dulcolax Supp) 10 mg RECTAL DAILY PRN PRN Reason: SEVERE CONSITIPATION Guaifenesin (Mucinex Er) 600 mg PO BID PENDING SALE TO [facility] Last Admin: 02/18/18 10:13 Dose: 600 mg Heparin Sodium (Porcine) (Heparin Inj) 5,000 units SQ Q12H PENDING SALE TO [facility] Last Admin: 02/18/18 06:54 Dose: 5,000 units Levofloxacin/Dextrose (Levaquin 750 Mg Premix Inj) 150 mls @ 100 mls/hr IV.SIG Q24H PENDING SALE TO [facility] Lactulose (Lactulose Liq) 30 ml PO DAILY PRN PRN Reason: SEVERE CONSITIPATION Methylprednisolone Sodium Succinate (Solumedrol Inj) 40 mg IV.PUSH Q8HR PENDING SALE TO [facility] Last Admin: 02/18/18 14:02 Dose: 40 mg Ondansetron HCl (Zofran Inj) 4 mg IV.PUSH Q6H PRN PRN Reason: NAUSEA OR VOMITING Senna/Docusate Sodium (Xiomara-Colace) 1 tab PO BID PENDING SALE TO [facility] Last Admin: 02/18/18 10:14 Dose: Not Given Sennosides (Senokot) 17.2 mg PO Q12H PRN PRN Reason: Moderate Constipation Allergies Allergy/AdvReac Type Severity Reaction Status Date / Time No Known Drug Allergies Allergy Anaphylaxis Verified 02/18/18 01:07 *MDRO Multi-Drug Resistant AdvReac Unknown Anaphylaxis Uncoded 02/18/18 01:07 Organism Home Medications Medication Instructions Recorded Confirmed Type atorvastatin 40 mg PO DAILY 02/17/18 02/17/18 History lisinopril 20 mg PO DAILY 02/17/18 02/17/18 History Exam Vital signs: Vital Signs 02/18/18 05:56 02/18/18 06:00 02/18/18 07:20 Temperature 98.3 F Pulse Rate 112 H 110 H Respiratory Rate 34 H 24 Blood Pressure 144/81 H Pulse Oximetry 98 96 96 02/18/18 08:00 02/18/18 10:00 02/18/18 12:15 Temperature Pulse Rate 100 H 94 H 102 H Respiratory Rate 23 20 21 Blood Pressure 119/91 H 110/76 Pulse Oximetry 96 96 94 L Intake & Output 02/17/18 02/18/18 02/18/18 18:59 06:59 18:59 Intake Total 50 / 50 Balance 50 / 50 Weight 55.4 kg Intake: Oral 50 / 50 Other: # Voids 0 Date of Last Bowel Movement 02/17/18 02/17/18 Weight On Admission 55.4 kg Narrative: GENERAL: Well-developed and well-nourished in no distress SKIN: Warm and dry. HEAD: Atraumatic. Normocephalic. EYES: Pupils equal and round. No scleral icterus. No injection or drainage. ENT: No nasal bleeding or discharge. Mucous membranes pink and moist. NECK: Trachea midline. No JVD. CARDIOVASCULAR: Regular rate and rhythm. RESPIRATORY: No accessory muscle use. Scattered crackles. Decreased breath sounds equal bilaterally. GASTROINTESTINAL: Abdomen soft, non-tender, nondistended. MUSCULOSKELETAL: Extremities without clubbing, cyanosis, or edema. No obvious deformities. NEUROLOGICAL: Awake and alert. No obvious cranial nerve deficits. Motor grossly within normal limits. Five out of 5 muscle strength in the arms and legs. Normal speech. PSYCHIATRIC: Appropriate mood and affect; insight and judgment normal. Results - Labs Labs: Laboratory Results - last 24 hr 02/18/18 06:27 Puncture Site Left radial Patient Temperature 98.6 O2 Saturation 94 ABG pH 7.36 L ABG pCO2 40 ABG pO2 77 ABG HCO3 22 ABG O2 Content 17.9 ABG Base Excess -2.7 L ABG Methemoglobin 1.5 Tomy Test Present Hemoglobin 13.5 Carboxyhemoglobin 1.0 O2 Delivery Device Ra Inspired O2 21 Critical Value No Caprini VTE Risk Assessment Caprini VTE Risk Assessment: Moderate/High Risk (score >= 2) Caprini Risk Assessment Model: Point Value = 1 Point Value = 2 Point Value = 3 Point Value = 5 Age 41-60 Minor surgery BMI > 25 kg/m2 Swollen legs Varicose veins or History of unexplained or recurrent spontaneous Oral contraceptives or hormone replacement Sepsis (< 1 month) Serious lung disease, including pneumonia (< 1 month) Abnormal pulmonary function Acute myocardial infarction Congestive heart failure (< 1 month) History of inflammatory bowel disease Medical patient at bed rest Age 61-74 Arthroscopic surgery Major open surgery (> 45 min) Laparoscopic surgery (> 45 min) Malignancy Confined to bed (> 72 hours) Immobilizing plaster cast Central venous access Age >= 75 History of VTE Family history of VTE Factor V Leiden Prothrombin [id number] Lupus anticoagulant Anticardiolipin antibodies Elevated serum homocysteine Heparin-induced thrombocytopenia Other congenital or acquired thrombophilia Stroke (< 1 month) Elective arthroplasty Hip, pelvis, or leg fracture Acute spinal cord injury (< 1 month) Prophylaxis Regimen: Total Risk Factor Score Risk Level Prophylaxis Regimen 0-1 Low Early ambulation 2 Moderate Order ONE of the following: *Sequential Compression Device (SCD) *Heparin 5000 units SQ BID 3-4 Higher Order ONE of the following medications: *Heparin 5000 units SQ TID *Enoxaparin/Lovenox 40 mg SQ daily (WT < 150 kg, CrCl > 30 mL/min) *Enoxaparin/Lovenox 30 mg SQ daily (WT < 150 kg, CrCl > 10-29 mL/min) *Enoxaparin/Lovenox 30 mg SQ BID (WT < 150 kg, CrCl > 30 mL/min) AND/OR *Sequential Compression Device (SCD) 5 or more Highest Order ONE of the following medications: *Heparin 5000 units SQ TID (Preferred with Epidurals) *Enoxaparin/Lovenox 40 mg SQ daily (WT < 150 kg, CrCl > 30 mL/min) *Enoxaparin/Lovenox 30 mg SQ daily (WT < 150 kg, CrCl > 10-29 mL/min) *Enoxaparin/Lovenox 30 mg SQ BID (WT < 150 kg, CrCl > 30 mL/min) AND *Sequential Compression Device (SCD) Assessment and Plan - Plan This is a 67-year-old female with a history of COPD, hypertension, hyperlipidemia and breast cancer status post lumpectomy and chemotherapy. Patient presents with shortness of breath with wheezing and nonproductive cough after a single episode of choking. COPD exacerbation with hypoxia. ABG results noted CXR image interpreted by me with no acute cardiopulmonary disease. Continue IV Solu-Medrol, Levaquin and nebulization. Because of tremors will decrease beta agonist. Also obtain chest CT because of abnormal lung findings on exam. Will also obtain swallowing evaluation. Aspiration precautions Possible viral infection. Flu screen. Symptomatic treatment ST. EKG tracing independently reviewed by me with sinus tachycardia secondary to above. Abnormal urinalysis. No UTI symptoms. Follow-up urine culture Intermittent disorientation likely secondary to metabolic encephalopathy. She is nonfocal. We will continue to monitor. Neurochecks DVT prophylaxis with heparin Discharge Planning: Home in 1-2 days
[2018-02-18] MEDS ORDERED: Phenol 1.4% 180 ML Spray Bottle OROPHARYNG PRN (15:06)
--- NOTE | 2018-02-18 15:16 | MB ---
cc: Ji Workman MD DATE: 02/18/2018 REASON FOR CONSULTATION: Respiratory failure, COPD, interstitial lung disease or pulmonary fibrosis. HISTORY OF PRESENT ILLNESS: The patient is a 67-year-old female who has known history of COPD of severe degree. The patient as well was told she has underlying interstitial lung disease. Her chest x-ray upon presentation is normal. The patient presents with increasing shortness of breath, cough without expectoration, fever or chills. The patient was given oxygen therapy, bronchodilator therapy as well as steroids and she feels somewhat better. PAST MEDICAL HISTORY: COPD, breast cancer, hypertension, interstitial lung disease or pulmonary fibrosis, history of lung nodules. PAST SURGICAL HISTORY: Had a mastectomy in the past. SOCIAL HISTORY: Does not smoke, does not drink. No TB, no industrial exposure. FAMILY HISTORY: Noncontributory. MEDICATIONS: 1. Nebulized albuterol. 2. Tessalon Perles. 3. Mucinex. 4. Levofloxacin. 5. Solu-Medrol. ALLERGIES: NONE KNOWN TO MEDICATION. REVIEW OF SYSTEMS: A 12-point review of systems as per HPI and past history, otherwise negative. PHYSICAL EXAMINATION: GENERAL: The patient is alert. VITAL SIGNS: Temperature 98 degrees Fahrenheit, pulse 96, respirations 20, blood pressure 110/74. HEENT: Unremarkable. Eyes without icterus. NECK: Without adenopathy, thyroid enlargement. Central trachea. CHEST: Few scattered rhonchi at bases. CARDIAC: PMI not appreciated. S1, S2 audible. No murmur. No rub. ABDOMEN: Lax, audible bowel sounds. PSYCHIATRIC: No clubbing, cyanosis or edema. SKIN: Normal. No lymphadenopathy. IMAGING: Chest x-ray, no acute abnormality. LABORATORY DATA: Arterial blood gas; pH 7.36, PCO2 of 40 and pO2 77 on room air. White count 11,000, hemoglobin 13, hematocrit 42, platelets 256. Sodium 144, potassium 4.3, BUN 26, creatinine 0.7. IMPRESSION: 1. Chronic obstructive pulmonary disease exacerbation. 2. Pulmonary fibrosis or interstitial lung disease. 3. Hypertension. 4. Breast cancer. PLAN: The patient will be maintained on oxygen therapy as needed. However, oxygenation on room air seems adequate. Her shortness of breath is improved. She may be changed to oral therapy with increased activity and once possible, send her home on oral therapy to be followed as an outpatient. A CT scan of the chest will be appropriate to assess the severity of underlying interstitial lung disease or pulmonary fibrosis and as the patient's chest x-ray is clear. I do thank you for asking me to participate in Mrs. Foster's care. MD HARRY Coleman/bobby , 02:38 PM , 02:49 PM
--- NOTE | 2018-02-18 18:27 | CT ---
EXAM DATE: 02/18/2018 6:18 PM EDT AGE/SEX: 67 years / Female INDICATIONS: Emphysema. Respiratory distress. Chronic cough. CLINICAL DATA: This is the patient's initial encounter. Patient reports that signs and symptoms have been present for 2 days and indicates a pain score of 0/10. MEDICAL/SURGICAL HISTORY: Carcinoma, breast. Hypertension. Emphysema. Mastectomy, right. RADIATION DOSE: 6.29 CTDI (mGy) COMPARISON: [facility] – [place], 08/30/2016. . TECHNIQUE: Multiple contiguous axial images were obtained through the chest without contrast. Image s were obtained in suspended respiration using multiple row detector helical technique. Using automa bekah exposure control and adjustment of the mA and/or kV according to patient size, radiation dose was kept as low as reasonably achievable to obtain optimal diagnostic quality images. DICOM format imag e data is available electronically for review and comparison. FINDINGS: Comparison is August 2016. Previous patchy airspace disease in the upper lungs has resolved. There is minimal subsegmental opacity at the bases which is similar to the prior exam. There is fairly extensive distal airway disease characterized by bronchiolectasis and distal mucoid p lugging with tree-in-bud pattern. There is fairly extensive peribronchial thickening and some cylindr ical bronchiectasis bilaterally. Overall the degree of distal airway disease is stable to slightly im proved. There is no new consolidation. Right-sided Fnmeso-l-Ckex is in superior vena cava. No pathologically enlarged lymph nodes identified . Mild coronary calcifications. No acute findings in the upper abdomen. CONCLUSION: 1. Overall improvement in previous patchy airspace disease in the upper lungs. Stable to slight impr ovement of distal airway disease. 2. Persistent peribronchial thickening, cylindrical bronchiectasis and distal bronchiolectasis. No s ignificant effusion. Electronically signed by: Sadi Chan MD 02/18/2018 6:26 PM EDT
[2018-02-18 20:51] VITALS: RESP 20
[2018-02-19] MEDS: MethylPREDNISolone Sod Succinate Inj 40 MG/ML Vial IV.PUSH SCH (05:56)
[2018-02-19] MEDS: Heparin - SQ 10,000 UNITS/ML Vial SQ SCH (05:57)
[2018-02-19 06:16] LABS: Baso % (Auto) 0.1 % (0.0-2.0); Hemoglobin 12.5 gm/dL (11.6-15.3); Lymph # (Auto) 0.9 th/mm3 (1.0-4.8); Lymph % (Auto) 6.2 % (9.0-44.0); Mean Corpuscular HGB Conc 33.8 % (32.0-36.0); Mean Corpuscular Hemoglobin 29.6 pg (27.0-34.0); Mean Corpuscular Volume 87.4 fL (80.0-100.0); Mean Platelet Volume 8.6 fL (7.0-11.0); Mono # (Auto) 0.7 th/mm3 (0.0-0.9); Mono % (Auto) 4.8 % (0.0-8.0); Neut % (Auto) 88.9 % (16.0-70.0); Platelet Count 236 th/mm3 (150-450); Red Blood Count 4.23 mil/mm3 (4.00-5.30); Red Cell Distribution Width 12.9 % (11.6-17.2); White Blood Count 14.6 th/mm3 (4.0-11.0)
[2018-02-19 06:19] LABS: Chloride 108 meq/L (98-107); Potassium 4.3 meq/L (3.5-5.1); Sodium 139 meq/L (136-145)
[2018-02-19 06:21] LABS: Calcium 8.6 mg/dL (8.5-10.1)
[2018-02-19 06:22] LABS: Anion Gap 6 meq/L (5-15); Blood Urea Nitrogen 19 mg/dL (7-18); Carbon Dioxide 25.5 meq/L (21.0-32.0); Glucose,Random 134 mg/dL (74-106); Magnesium 1.8 mg/dL (1.5-2.5)
[2018-02-19 06:25] LABS: Glomerular Filtration Rate Greater Than 89 mL/min (>89)
[2018-02-19 08:07] VITALS: BP 118/78; PULSE 88; TEMP 97; O2SAT 94
[2018-02-19] MEDS ORDERED: Lisinopril 20 MG Tablet PO SCH (09:00)
[2018-02-19] MEDS ORDERED: predniSONE 20 MG Tablet PO SCH (09:00)
--- NOTE | 2018-02-19 09:58 | P.PN ---
Subjective Interval history: Follow-up COPD exacerbation. She is feeling much better today and wants to go home. She is on room air. Physical Exam Vital signs: Vital Signs 02/18/18 10:00 02/18/18 12:15 02/18/18 16:00 Temperature Pulse Rate 94 H 102 H 86 Respiratory Rate 20 21 19 Blood Pressure 110/76 109/77 Pulse Oximetry 96 94 L 95 02/18/18 19:50 02/18/18 20:00 02/18/18 20:25 Temperature 96.7 F L Pulse Rate 98 H 117 H Respiratory Rate 20 20 Blood Pressure 159/93 H Pulse Oximetry 94 L 91 L 97 02/19/18 00:00 02/19/18 07:17 02/19/18 07:46 Temperature 98 F Pulse Rate 97 H 77 Respiratory Rate 20 20 Blood Pressure 107/68 Pulse Oximetry 91 L 92 L 02/19/18 08:00 Temperature 97.0 F L Pulse Rate 88 Respiratory Rate Blood Pressure 118/78 Pulse Oximetry 94 L Intake & Output 02/18/18 02/19/18 02/19/18 18:59 06:59 18:59 Intake Total 480 / 480 390 / 390 240 / 240 Output Total 450 / 450 300 / 300 Balance 30 / 30 390 / 390 -60 / -60 Weight 57 kg Intake: IV 150 / 150 Levaquin 750 mg Premix Inj 150 150 / 150 ML @ 100 mls/hr IV.SIG Q24H KAREN Rx#:[id number] Oral 480 / 480 240 / 240 240 / 240 Output: Urine 450 / 450 300 / 300 Other: # Voids 0 1 Date of Last Bowel Movement 02/17/18 Narrative: GENERAL: Well-developed and well-nourished in no distress SKIN: Warm and dry. CARDIOVASCULAR: Regular rate and rhythm. RESPIRATORY: No accessory muscle use. Clear lungs. Decreased breath sounds equal bilaterally. GASTROINTESTINAL: Abdomen soft, non-tender, nondistended. MUSCULOSKELETAL: Extremities without clubbing, cyanosis, or edema. No obvious deformities. NEUROLOGICAL: Awake and alert. No obvious cranial nerve deficits. Motor grossly within normal limits. Five out of 5 muscle strength in the arms and legs. Normal speech. Results - Labs CBC & Chem 7: 02/19/18 05:30 02/19/18 05:30 Laboratory Results - last 24 hr 02/19/18 02/19/18 02/19/18 05:30 05:30 05:30 CBC w Diff Auto diff final WBC 14.6 H RBC 4.23 Hgb 12.5 Hct 37.0 MCV 87.4 D MCH 29.6 MCHC 33.8 RDW 12.9 Plt Count 236 MPV 8.6 Neut % (Auto) 88.9 H Lymph % (Auto) 6.2 L Hettinger % (Auto) 4.8 Eos % (Auto) 0.0 Baso % (Auto) 0.1 Neut # (Auto) 13.0 H Lymph # (Auto) 0.9 L Hettinger # (Auto) 0.7 Eos # (Auto) 0.0 Baso # (Auto) 0.0 WBC Differential . Differential Comment . Sodium 139 Potassium 4.3 Chloride 108 H Carbon Dioxide 25.5 Anion Gap 6 BUN 19 H Creatinine 0.61 Estimated GFR Greater than 89 Random Glucose 134 H Calcium 8.6 Magnesium 1.8 TSH 0.300 L Microbiology 02/18/18 15:24 Nasal Wash Influenza Types A,B Antigen - Final Negative for FLU A and B antigen Infection due to influenza A or B cannot be ruled out since the antigen present in the sample may be below the detection limit of the test. - Imaging Impressions Chest CT 02/18/18 00:00 CONCLUSION: 1. Overall improvement in previous patchy airspace disease in the upper lungs. Stable to slight improvement of distal airway disease. 2. Persistent peribronchial thickening, cylindrical bronchiectasis and distal bronchiolectasis. No significant effusion. - Procedures none Assessment and Plan - Plan This is a 67-year-old female with a history of COPD, hypertension, hyperlipidemia and breast cancer status post lumpectomy and chemotherapy. Patient presents with shortness of breath with wheezing and nonproductive cough after a single episode of choking. COPD exacerbation with hypoxia. CT of the chest with improvement in the patchy airspace disease in the upper lungs, distal airway disease with persistent peribronchial thickening, cylindrical bronchiectasis and distal bronchiectasis. Much improved continue steroids switch to p.o., Levaquin and MDI. Question follow-up with patient's dynamicist Tremors. Improved with decreased beta agonist. TSH sl low .3 likely 2/2 meds pending Ft3 and FT4. Repeat TSH in 6 weeks Negative Flu screen. Symptomatic treatment ST. EKG tracing independently reviewed by me with sinus tachycardia secondary to above. Abnormal urinalysis. No UTI symptoms. Follow-up urine culture Intermittent disorientation likely secondary to metabolic encephalopathy. She is nonfocal. Improved. We will continue to monitor. Neurochecks DVT prophylaxis with heparin Discharge Planning: Discharge patient to home Condition on discharge: Improved Regular Diet as tolerated Ad Rolanda activity no driving Rx written: Combivent, albuterol inhaler, Levaquin and prednisone Follow-up with primary care physician and pulmonary
[2018-02-19] MEDS: Senna/Docusate Sodium 8.6/50 MG Tablet PO SCH (10:11)
[2018-02-19] MEDS: guaiFENesin 600 MG ER Tablet PO SCH (10:11)
[2018-02-19 10:49] LABS: Free T4 (Free Thyroxine) 1.06 ng/dL (0.76-1.46); Triiodothyronine (T3) Free 1.26 pg/mL (2.18-3.98)
== END 2018-02-19 10:28 | disposition home or self-care (01) ==
LOC: PHICU 02-18 05:35 → PHEDDLT 02-18 05:35 → PH3 02-18 18:27
PROVIDERS: ADMIT Internal Medicine; ATTEND Internal Medicine